=== PATIENT | male | born 2005 | race Caucasian/White ===

== ENCOUNTER 2023-07-30 18:39 | Emergency (ER) | payer OTHER, SELFPAY ==
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
[2023-07-30 18:42] VITALS: BP 149/90; PULSE 90; TEMP 37.3; O2SAT 97; BMI 20.8
[2023-07-30 18:53] VITALS: O2SAT 98
== END 2023-07-30 20:29 | disposition home or self-care (01) ==
PROVIDERS: Emergency Provider Emergency Medicine; PCP Family Medicine
DX: S39.012A Strain of muscle, fascia and tendon of lower back, initial encounter (principal); V43.52XA Car driver injured in collision with other type car in traffic accident, initial encounter
CPT/HCPCS: 72040; 72100; 99284

== ENCOUNTER 2024-04-24 15:29 | Emergency (ER) | payer OTHER, SELFPAY ==
--- OUTSIDE RECORDS SUMMARY | 2024-04-24 15:34 | XMS_ITS | CCD ---
Author Organization [facility] Care Team Providers Care Machine Feller Name Role Phone Nitish Cedeno Primary Care Provider [phone] ZAY SANTO Referring Unavailable NITISH CEDENO Primary Care Unavailable TEETEE DE JESUS Admitting Unavailable TEETEE DE JESUS Attending Unavailable NITISH CEDENO Primary Care Unavailable Nitish Cedeno Unavailable Unavailable DENEEN, DR TALBERT Primary Care Unavailable DENEEN, DR TALBERT Consulting Unavailable DENEEN, DR TALBERT Attending Unavailable DENEEN, DR TALBERT Admitting Unavailable NOEMI, DR JESSE Smith Consulting Unavailable SHEREE LEONARD Attending Unavailable DENEEN, DR TALBERT Primary Care Unavailable SHEREE LEONARD Admitting Unavailable SHEREE LEONARD Consulting Unavailable DENEEN, DR TALBERT Consulting Unavailable DENEEN, DR TALBERT Attending Unavailable DENEEN, DR TALBERT Admitting Unavailable DENEEN, DR TALBERT Primary Care Unavailable BEAR, DR VIKKI Mar Consulting Unavailable JUAN CARLOS PEÑA Attending Unavailable DENEEN, DR TALBERT Primary Care Unavailable JUAN CARLOS PEÑA Admitting Unavailable DENEEN, DR TALBERT Primary Care Unavailable PAY, DR SCHNEIDER Attending Unavailable PAY, DR SCHNEIDER Admitting Unavailable PAY, DR SCHNEIDER Consulting Unavailable GISSELLE MACK Consulting Unavailable NITISH, DR MAYER Attending Unavailable DHRUV BONDS Consulting Unavailable DENEEN, DR TALBERT Primary Care Unavailable NITISH, DR MAYER Admitting Unavailable LOKESH GODINEZ Attending Unavailable DENEEN, DR TALBERT Primary Care Unavailable LOKESH GODINEZ Admitting Unavailable LOKESH GODINEZ Consulting Unavailable ChadMan woodruffit Consulting Unavailable DENEEN, DR TALBERT Primary Care Unavailable DENEEN, DR TALBERT Consulting Unavailable DENEEN, DR TALBERT Attending Unavailable DENEEN, DR TALBERT Admitting Unavailable NOEMI, DR JESSE Smith Consulting Unavailable DENEEN, DR TALBERT Primary Care Unavailable DENEEN, DR TALBERT Attending Unavailable DENEEN, DR NITISH Admitting Unavailable Nitish Cedeno Unavailable Unavailable Unavailable Nitish Cedeno Unavailable Suzy Katarina Unavailable Mayela OrtizbartNela Unavailable Jesse Greenberg Unavailable Allergies Allergy Classification Reported Allergen(s) Allergy Type Date of Onset Reaction(s) Facility Penicillins (antibiotic) (9 sources) Penicillins; Translations: [Penicillins] Drug Allergy 6 Rash [facility] Repository (2 sources) Penicillins Propensity to adverse reactions to drug 9 [place], [place] (1 source) Penicillins; Translations: [Penicillins] Allergy to drug (finding) GP-Ypitpqotwq-Om nter Jalen Milner Work Phone: (4 sources) Penicillin G Benzathine Drug allergy Unknown [employer] Other Medications Current Medications Medication Drug Class(es) Dates Sig (Normalized) Sig (Original) acetaminophen 325 mg oral tablet (1 source) Start: 12-25-2018 take 2 tablets by mouth every six hours acetaminophen (AMINOFEN) 325 MG tablet Take 2 tablets by mouth every 6 hours 120 tablet 0 12/25/2018 Active Start: 12-25-2018 take 2 tablets by mo uth every six hours acetaminophen (AMINOFEN) 325 MG tablet Take 2 tablets by mouth every 6 hours 120 tablet 0 12/25/2018 Active Acetaminophen / HYDROcodone (1 source) Opioid Agonist Start: 12-25-2018 End: 12-25-2018 HYDROcodone-acetaminophen (NORCO) 5-325 MG per tablet 1 tablet bisacodyl 5 mg delayed release oral tablet (1 source) Stimulant Laxative Start: 09-06-2020 take 2 tablets by mouth once daily as needed Ducodyl 5 mg oral delayed release tablet ; 2 tab(s) orally once a day as needed for constiaption Quantity: 30 Refills: 0 Ordered: 06-Sep-2020 Baudilio West Start: 06-Sep-2020 Generic Substitution Allowed Comments: Swallow whole. Do not crush. Comment on above: Swallow whole. Do no t crush. calcium chloride 0.0014 meq/ml / potassium chloride 0.004 meq/ml / sodium chloride 0.103 meq/ml / sodium lactate 0.028 meq/ml injectable solution (1 source) Start: 12-25-2018 lactated ringers infusion 2 ml fentaNYL 0.05 mg/ml injection (2 sources) Opioid Agonist Start: 12-25-2018 fentaNYL (SUBLIMAZE) injection 50 mcg Start: 12-25-2018 fentaNYL (SUBL IMAZE) injection 25 mcg hyoscyamine sulfate 0.125 mg disintegrating oral tablet (12 sources) Start: 02-07-2021 Hyoscyamine Levy lfate 0.125 MG 1 tablet on the tongue and allow to dissolve as needed Orally PRN for 30 days Feb, Active Start: 11-17-2015 take 1 tablet under the tongue four times daily Hyoscyamine Sulfate 0.125 MG Sublingual Tablet Sublingual dissolve 1 tablet under the tongue four times a day if needed for CRAM Quantity: 20 Refills: 0 Ordered: 17-Nov-2015 DO Start : 17-Nov-2015 Active ibuprofen 200 mg oral tablet (1 source) Nonsteroidal Anti-inflammatory Drug Start: 12-25-2018 take 2 tablets by mouth every six hours ibuprofen (ADVIL) 200 MG tablet Take 2 tablets by mouth every 6 hours 120 tablet 0 12/25/2018 Active Start: 12-25-2018 take 2 tablets by mo [facility] every six hours ibuprofen (ADVIL) 200 MG tablet Take 2 tablets by mouth every 6 hours 120 tablet 0 12/25/2018 Active pantoprazole 40 mg delayed release oral tablet (15 sources) Proton Pump Inhibitor Start: 05-16-2021 take 1 tablet by mouth every twenty-four hours Pantoprazole Sodium 40 MG 1 tablet Orally Once a day for 30 day(s) CANCEL PREVIOUSLY SENT SCRIPT FOR PANTOPRAZOLE 20 MG DAILY May, Active Start: 11-02-2019 take 1 tablet by flavio th twice daily Pantoprazole Sodium 40 MG Oral Tablet Delayed Release Take 1 tablet twice daily Quantity: 60 Refills: 2 Ordered: 15-Aug-2020 Sheree Leonard MD Start : 02-Nov-2019 Active Start: 11-02-2019 take 1 tablet by flavio th once daily Pantoprazole Sodium 40 MG Oral Tablet Delayed Release take 1 tablet by mouth once daily Quantity: 30 Refills: 0 DO Start : 02-Nov-2019 Active take 1 tablet by flavio th every twenty-four hours Pantoprazole Sodium 20 MG 1 tablet Orally Once a day for 30 day(s) Active Pantoprazole Sod ium Active pantoprazole Naveen ntity: 0 Refills: 0 Ordered: 01-May-2020 Eusebia Silva Generic Substitution Allowed Completed/Discontinued Medications Medication Drug Class(es) Dates Sig (Normalized) Sig (Original) 200 actuat albuterol 0.09 mg/actuat metered dose inhaler (1 source) beta2-Adrenergic Agonist Start: 01-29-2016 take 2 puff(s) by mouth four times daily Ventolin HFA 108 (90 Base) MCG/ACT Inhalation Aerosol Solution INHALE 2 PUFFS BY MOUTH 4 TIMES A DAY, USE 2 PUFFS 30 MINUTES BEFORE P Quantity: 18 Refills: 0 DO Start : 29-Jan-2016 Active dicyclomine hydrochloride 20 mg oral tablet (2 sources) Anticholinergic Start: 12-29-2019 take 1 tablet by mouth three times daily for pain Dicyclomine HCl - 20 MG Oral Tablet take 1 tablet by mouth three times a day if needed for ABDOMINAL PAIN Quantity: 40 Refills: 0 DO Start : 29-Dec-2019 Active dicyclomine Eric tity: 0 Refills: 0 Ordered: 01-May-2020 Eusebia Silva Generic Substitution Allowed ergocalciferol 0.05 mg oral capsule (7 sources) Provitamin D2 Compound Start: 06-08-2020 take 1 capsule by mouth once daily Vitamin D (Ergocalciferol) 50 MCG (2000 UT) Oral Capsule TAKE 1 CAPSULE BY MOUTH EVERY DAY Quantity: 30 Refills: 3 Ordered: 29-Aug-2020 Sheree Leonard MD Start : 08-Jun-2020 Active Start: 06-08-2020 take 1 capsule by mo [facility] every week Vitamin D (Ergocalciferol) 1.25 MG (41336 UT) Oral Capsule TAKE 1 CAPSULE WEEKLY. Quantity: 4 Refills: 2 Ordered: 08-Jun-2020 Sheree Leonard MD Start : 08-Jun-2020 Active famotidine 20 mg oral tablet (1 source) Histamine-2 Receptor Antagonist Start: 02-26-2020 take 1 tablet by mouth twice daily Famotidine 20 MG Oral Tablet take 1 tablet by mouth twice a day Quantity: 20 Refills: 0 DO Start : 26-Feb-2020 Active 60 actuat formoterol fumarate 0.005 mg/actuat / mometasone furoate 0.1 mg/actuat metered dose inhaler (1 source) Corticosteroid, beta2-Adrenergic Agonist Start: 02-22-2016 take 2 puff(s) by mouth twice daily Dulera 100-5 MCG/ACT Inhalation Aerosol INHALE 2 PUFFS BY MOUTH TWICE A DAY Quantity: 13 Refills: 0 DO Start : 22-Feb-2016 Active hydrocortisone 25 mg/ml topical cream (8 sources) Corticosteroid Start: 08-10-2015 Hydrocortisone 2.5 % External Cream APPLY TO RASH ONCE DAILY IF NEEDED Quantity: 30 Refills: 0 Ordered: 10-Aug-2015 DO Start : 10-Aug-2015 Active Start: 08-10-2015 Hydrocortisone 2.5 % External Cream APPLY TO RASH ONCE DAILY IF NEEDED Quantity: 30 Refills: 0 DO Start : 10-Aug-2015 Active meclizine hydrochloride 25 mg oral tablet (1 source) Antiemetic Start: 01-01-2016 take 1 tablet by mouth four times daily for dizziness Meclizine HCl - 25 MG Oral Tablet take 1 tablet by mouth four times a day FOR DIZZINESS Quantity: 20 Refills: 0 DO Start : 01-Jan-2016 Active melatonin 5 mg oral tablet (2 sources) Start: 11-03-2015 RA Melatonin 5 MG Oral Tablet Quantity: 30 Refills: 0 DO Start : 03-Nov-2015 Active take 5 mg by mouth once daily as needed melatonin 3 MG TABS tablet Take 5 mg by mouth nightly as needed 0 Active 2 ml midazolam 1 mg/ml injection (1 source) Benzodiazepine Start: 12-25-2018 End: 12-25-2018 midazolam (VERSED) injection 2 mg Start: 12-25-2018 End: 12-25-2018 midazolam (VERSED) injection 2 mg ondansetron 4 mg disintegrating oral tablet (2 sources) Serotonin-3 Receptor Antagonist Start: 02-26-2020 take 1 tablet by mouth every four hours for nausea Ondansetron 4 MG Oral Tablet Disintegrating dissolve 1 tablet ON TONGUE every 4 hours if needed for nausea OR vomi Quantity: 10 Refills: 0 DO Start : 26-Feb-2020 Active Start: 04-25-2016 take 1 tablet by flavio th every six hours Ondansetron HCl - 4 MG Oral Tablet take 1 tablet by mouth every 6 hours if needed Quantity: 12 Refills: 0 DO Start : 25-Apr-2016 Active polyethylene glycol 3350 88602 mg powder for oral solution (1 source) Osmotic Laxative Start: 09-06-2020 GlycoLax oral powder for reconstitution ; 17 gram(s) orally once a day Quantity: 1 Refills: 3 Ordered: 06-Sep-2020 Baudilio West Start: 06-Sep-2020 Generic Substitution Allowed Comments: Dilute this medication with liquid before administration.It is very important that you take or use this exactly as directed. Do not skip doses or discontinue unless directed by your doctor. Comment on above: Dilute this medicati on with liquid before administration.It is very important that you take or use this exactly as directed. Do not skip doses or discontinue unless directed by your doctor. predniSONE 5 mg oral tablet (7 sources) Start: 07-14-2020 take 4 tablets by mouth once daily predniSONE 5 MG Oral Tablet TAKE 4 TABLETS DAILY. Quantity: 120 Refills: 0 Ordered: 14-Jul-2020 Sheree Leonard MD Start : 14-Jul-2020 Active sucralfate 1000 mg oral tablet (2 sources) Aluminum Complex Start: 03-26-2020 take 1 tablet by mouth every six hours for pain Sucralfate 1 GM Oral Tablet take 1 tablet by mouth every 6 hours if needed for ABDOMINAL PAIN Quantity: 20 Refills: 0 DO Start : 26-Mar-2020 Active Carafate Quantit y: 0 Refills: 0 Ordered: 01-May-2020 Eusebia Silva Generic Substitution Allowed Problems Active Problems Problem Classification Problem Date Documented Da te Episodic/Chronic Abdominal pain (20 sources) Epigastric pain; Translations: [Lower abdominal pain] Onset: 1 Episodic Allergic reactions (8 sources) Environmental allergy; Translations: [Other allergy, other than to medicinal agents] Episodic Anal and rectal conditions (7 sources) Proctitis; Translations: [Other specified disorders of rectum and anus] Episodic Diseases of mouth; excluding dental (8 sources) Aphthous ulcer of mouth; Translations: [Oral aphthae] Episodic Esophageal disorders (15 sources) Gastroesophageal reflux disease; Translations: [Gastro-esophageal reflux disease without esophagitis] Onset: 0 Resolved: 2 Chronic Gastritis and duodenitis (2 sources) Superficial gastritis; Translations: [Chronic superficial gastritis without bleeding] Onset: 2 Resolved: 2 Chronic Gastroduodenal ulcer (except hemorrhage) (1 source) Peptic ulcer, site unspecified, unspecified as acute or chronic, without hemorrhage or perforation; Translations: [PU SITE UNS UNS AC/CHR NO HEM/PERF] Onset: 0 Chronic Headache; including migraine (8 sources) Chronic headache disorder; Translations: [Headache] Episodic Nausea and vomiting (9 sources) Nausea; Translations: [Nausea] Onset: 0 Episodic Noninfectious gastroenteritis (13 sources) Eosinophilic gastritis or gastroenteritis; 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: 1 Resolved: 2 Chronic Nutritional deficiencies (7 sources) Vitamin D deficiency; Translations: [Unspecified vitamin D deficiency] Chronic Other acquired deformities (8 sources) Scoliosis deformity of spine; Translations: [Scoliosis [and kyphoscoliosis], idiopathic] Chronic Other aftercare (7 sources) Patient encounter status; Translations: [Long-term (current) use of non-steroidal anti-inflammatories (NSAID)] Episodic Other bone disease and musculoskeletal deformities (4 sources) Other idiopathic scoliosis, site unspecified; Translations: [OTHER IDIOPATHIC SCOLIOSIS SITE UNS] Onset: 0 Chronic Other gastrointestinal disorders (4 sources) Irritable bowel syndrome with diarrhea; Translations: [Irritable bowel syndrome with diarrhea] Chronic Other gastrointestinal disorders (2 sources) Irritable bowel syndrome with diarrhea Onset: 2 Resolved: 2 Chronic Other hereditary and degenerative nervous system conditions (4 sources) Essential tremor; Translations: [ESSENTIAL TREMOR] Onset: 1 Chronic Other nervous system disorders (1 source) Other chronic pain; Translations: [OTHER CHRONIC PAIN] Onset: 1 Chronic Residual codes; unclassified (2 sources) Foreign body; Translations: [Foreign body (FB) in soft tissue] Onset: 9 12-08-2018 Episodic Residual codes; unclassified (7 sources) History of clinical finding in subject; Translations: [Personal history of unspecified disease] Episodic Spondylosis; intervertebral disc disorders; other back problems (8 sources) Backache; Translations: [Backache, unspecified] Episodic Substance-related disorders (1 source) Cannabis abuse, uncomplicated; Translations: [CANNABIS ABUSE UNCOMPLICATED] Onset: Chronic Unclassified (2 sources) REFERRAL 09-06-2020 Comment on above: REFERRAL Unclassified (1 source) EOSINOPHILIC GASTRITIS/REFERRED BY DR. LEONARD/REQUESTING ALLERGY TESTING 08-16-2020 Comment on above: EOSINOPHILIC GASTRIT IS/REFERRED BY DR. 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; Translations: [OTH PENITENTIARY CURRENT DRUG THERAPY] Onset: 02-29-2020 Episodic Superficial injury; contusion (1 source) Foreign body of skin of chest; Translations: [Foreign body of skin of chest, initial encounter] Episodic Unclassified (1 source) History of clinical finding in subject; Translations: [History of being hospitalized] Unclassified (1 source) Patient encounter status; Translations: [NSAID long-term use] Results Test Name Value Interpretation Reference Range Facility No Panel Informationon 10-02 [email or web address] | [employer]/ [email or web address]?={[id number]} [facility] Work Phone: [facility] Work Phone: [email or web address] | [employer]/ [email or web address]?={[id number]} [facility] Work Phone: [facility] Work Phone: Order Reconciliationon 10-02 Order Reconciliation Page 1 Discharge Reconciliation Document Reconciliation Type: Discharge requested on behalf of Sheree Leonard (Physician) done by Sheree Leonard) Discharge - Reconciliation: 02-Oct-2020 12:05 by: Sheree Leonard) Home Medications EnteredHOME MEDICATIONS AT DISCHARGE DateReconciliation Comment/ Additional Information dicyclomine 01-May-2020 11:17 dicyclomine 01-May-2020 11:17 dicyclomine is continued as dicyclomine pantoprazole 01-May-2020 11:16 pantoprazole 01-May-2020 11:16 pantoprazole is continued as pantoprazole Current OrdersDateHOME MEDICATIONS AT DISCHARGE DateReconciliation Comment/ Additional Information Lactated Ringers Infusion - PEDS Volume = 1,000 mL Run at: 100 mL/hr IntraVenous Clinician Notes: PACU Order ONLY 02-Oct-2020 11:01 Lactated Ringers Infusion - PEDS is not required All Active Home Medications at time of Discharge Reconciliation: 02-Oct-2020 12:05 dicyclomine pantoprazole Normal [facility] Patient Profile - Preop - Pe diatric v2on 10-02-2020 Patient Profile - Preop - Pediatric v2 Profile: Initial Info: How to be AddressedShade(1) Parent NameCondavid Branch(1) Spoken Language PreferredEnglish (1) Parental Spoken Language PreferredEnglish (1) Legal Custodiangrandma Mendy Branch(1) Stated Reason for Admissionscopes Primary Contact Name and Numbersee chart Patient Belongingsnone Medications Brought to Hospitalno General Health: Patient or Family Member Reaction to Anesthesiano previous reaction Blood Avoidance/Restrictionsnone Previous Transfusion Reactionno Health Mgmt: Symptoms/Conditions Managed at Homegastrointestinal Gastrointestinal Symptoms/Conditionsabdomin al pain Barriers to Managing Healthnone Relationship/Environ: Primary Caregivergrandmother(1) Lives Withfather; grandmother(1) Resource/Environmental Concernsnone [facility] Anticipated at Transitionnone Substance: Smoking Statusnever smoker Alcohol Usedenies Drug Usedenies Drug 2 Usedenies Risk Screens: COVID-19 Screening Completedno exposure or symptoms Travel or ExposureNO travel to International locations in the past 30 days Advance Directive/DNRnot applicable Advance Directive Mental Healthnot applicable Patient is Able to be Assessed for Learningyes Factors Influence Readiness to Learnnone, ready to learn Factors Impact Ability to Learnnone Devices/Methods Used to Communicatenone Learning Preferencesskill demonstration, verbal instruction Cultural Considerationsnone Developmental Considerationsnone Baptist Considerationsnone Other learner availableno Do you feel UNSAFE going back to the place where you liveno Clinician Assessment: Are there any apparent signs of injuries/behaviors that could be related to abuse/neglectno Ask parent or guardian: Are there times when you, your child(chang), or any member of your household feel unsafe, harmed, or threatened around persons with whom you know or liveno Have you had any thoughts of harming anyone elseno Risk Screen Not Applicable/Able to Answerable to be screened In the Past Month: Have you wished you were or could go to sleep and not wake upno In the Past Month: Have you had any actual thoughts of killing yourselfno Lifetime: Have you ever done, started to do, or prepared to do anything to end your lifeno [place] RiskPatient location auto qualifies him/her for HIGH RISK. Are there any cultural, spiritual, religion practices/values/needs that are important for us to knowno Pain Scalenumerical 0-10 Pain Scale Educationteaching provided Current Pain Level0 = None Acceptable Pain Level0 = None Chronic Painno Additional Information: Information Review: Allergies, Home Meds and Significant Events have been Reviewed and Verified with Patient/Familyyes Allergy, Intolerance, Adverse Event: Allergies: penicillin: Drug, Rash, Active Electronic Signatures: Roxanne Lee (ANA M) (Signed 02-Oct-2020 10:39) Authored: Initial Info, General Health, Health Mgmt, Relationship/Environ, Substance, Risk Screens, Additional Information Last Updated: 02-Oct-2020 10:39 by Roxanne Lee (ANA M) References: 1. Data Referenced From Patient Profile - Preop - Pediatric v2 01-May-2020 11:20 Normal [facility] Preop Checkliston 10-02-2020 Preop Checklist Preop Checklist: Preop Checklist: Arrival [id number] Arrival Time10:36 Procedure Typeegd/colonoscopy NPO [id number] 08:00 ID Band Onyes Allergy Bandyes Consent Signedpending H&P Completepending Anesthesia Assessment Completedpending EKG Performednot ordered Chest X-Ray Performednot ordered HCG Urine TestN/A Hair Washedyes Soap and water bath with hair shampoo the night before surgeryyes Hat placed on prior to transportnot applicable SCD's Appliednot applicable Denturesnot applicable Prostheticsnot applicable Hearing Aidsnot applicable Valuables Securedsent with family Glasses / Contactsnot applicable Bowel Prepyes TypeMiralax Bowel Prep Completed as Instructedyes Stools Clearyes Cardiovascular Assessment: Apicalregular Radial Pulsespalpable Pedal Pulsespalpable Extremitieswarm, well perfused Respiratory Assessment: Respirationsregular unlabored Air Exchangegood, equal Breath Soundsclear Neurological Assessment: Level of Consciousnessalert, oriented Mobilitymoves all extremities Able to Express Selfyes Age Appropriateyes Emotional Statuscalm Skin Assessment: Skin Site(s) with Current Compromisenone Preop Education: Surgical Site Infection Preventionyes Pain Scales and Managementyes Language / Communication: Language / CommunicationEnglish Electronic Signatures: Roxanne Lee (RN) (Signed 02-Oct-2020 10:37) Authored: Preop Checklist Last Updated: 02-Oct-2020 10:37 by Roxanne Lee (RN) Normal [facility] Surgical Pathology Depar tmenton 10-02-2020 [facility] Surgical Pathology Department Name ALEXANDR BRANCH Pathologist: WESTLEY WALTON MD Date of Procedure: 10/02/2020 Date Received: 10/03/2020 Date Reported 10/04/2020 Submitting Physician: SHEREE LEONARD M.D. Location: Copy To/Referring/Attending: SHEREE LEONARD M.D. Other External # FINAL DIAGNOSIS A. DUODENUM: --DUODENAL MUCOSA; NO PATHOLOGIC DIAGNOSIS B. STOMACH: --GASTRIC ANTRAL AND FUNDIC MUCOSA; NO PATHOLOGIC DIAGNOSIS C. DISTAL ESOPHAGUS: --SQUAMOUS ESOPHAGEAL MUCOSA; NO PATHOLOGIC DIAGNOSIS D. TERMINAL ILEUM: --ILEAL MUCOSA; NO PATHOLOGIC DIAGNOSIS E. RIGHT COLON, F. TRANSVERSE COLON, G. LEFT COLON, H. RECTUM: --COLONIC MUCOSA WITH NUMEROUS LYMPHOID AGGREGATES I. MID ESOPHAGUS: --SQUAMOUS ESOPHAGEAL MUCOSA, NO PATHOLOGIC DIAGNOSIS Electronically Signed Out By WESTLEY WALTON MD/SHADY By the signature on this report, the individual or group listed as making the Final Interpretation/Diagnosis certifies that they have reviewed this case. Clinical History: abdominal pain, canker sores, reflux, weight loss, history of EoG, slighty nodular esophagus stomach, nl duo TI, red spots in colon. Specimens Submitted As: A: D-DUODENUM B: G-GASTRIC C: DE-DISTAL ESOPHAGUS D: TI-TERMINAL ILEUM E: RC-RIGHT COLON F: TC-TRANSVERSE COLON G: LC-LEFT COLON H: R-RECTUM I: ME-MID ESOPHAGUS Gross Description: A: Received in formalin, labeled with the patient's name and hospital number and D , are multiple fragments of chaney, soft tissue aggregating to 1.1 x 0.3 x 0.2 cm. The specimen is submitted in toto in one cassette. SBS B: Received in formalin, labeled with the patient's name and hospital number and G , are multiple fragments of chaney, soft tissue aggregating to 1.1 x 0.2 x 0.2 cm. The specimen is submitted in toto in one cassette. SBS C: Received in formalin, labeled with the patient's name and hospital number and DE , are multiple fragments of chaney, soft tissue aggregating to 0.6 x 0.2 x 0.2 cm. The specimen is submitted in toto in one cassette. SBS D: Received in formalin, labeled with the patient's name and hospital number and TI , are multiple fragments of chaney, soft tissue aggregating to 0.7 x 0.2 x 0.2 cm. The specimen is submitted in toto in one cassette. SBS E: Received in formalin, labeled with the patient's name and hospital number and RC , are multiple fragments of chaney, soft tissue aggregating to 0.8 x 0.2 x 0.2 cm. The specimen is submitted in toto in one cassette. SBS F: Received in formalin, labeled with the patient's name and hospital number and TC , are multiple fragments of chaney, soft tissue aggregating to 1.0 x 0.2 x 0.1 cm. The specimen is submitted in toto in one cassette. SBS G: Received in formalin, labeled with the patient's name and hospital number and LC , are multiple fragments of chaney, soft tissue aggregating to 0.8 x 0.2 x 0.2 cm. The specimen is submitted in toto in one cassette. SBS H: Received in formalin, labeled with the patient's name and hospital number and R , are multiple fragments of chaney, soft tissue aggregating to 1.0 x 0.2 x 0.2 cm. The specimen is submitted in toto in one cassette. SBS I: Received in formalin, labeled with the patient's name and hospital number and ME , are multiple fragments of chaney, soft tissue aggregating to 0.9 x 0.3 x 0.1 cm. The specimen is submitted in toto in one cassette. SBS sbs/10/03/2020 [facility] Department of Pathology [id number] [facility] [place] [address] Normal [facility] Comment on above: Performed By: #### U [facility] ####[facility] Surgical Pathology [id number] [facility] [place] [address] Office Visit (Allergy/Immuno logy)on 09-28-2020 Follow-up visit History of Present I llness PATIENT WAS A NO SHOW FOR VISIT; NOTE PREPARED IN PREPARATION OF ANTICIPATED VISIT ALEXANDR BRANCH is a 14 year-old boy who was referred to the [facility] of [facility] by Dr. 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 and patchy colitis protitis no eosinophils in esophagus has been treated with pantoprazole and oral steroid 20mg per day x 30 days script, (not clear what planned daily dose was) with a planned course with improved symptoms, less pain has eliminated dairy --not strictly with improvement in symptoms seen in ER for planned referral for worsening abodminal pain September 06 did not admit KUB with stool ball associated with worst site of pain ESR/CRP normal given fleets enema and home on miralax/dulcolax clean out ROS: positive canker sores positive weight loss: eats less when he has pain listed Penicilin allergy: milk: egg: Atopic Comorbidities: eczema: rhinitis: asthma: food allergy: drug allergy: hives: snoring: Active Problems Problems Abdominal pain, chronic, epigastric (789.06,338.29) (R10.13,G89.29) Abdominal pain, RLQ (789.03) (R10.31) Back pain (724.5) (M54.9) 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) Chronic headache (784.0) (R51.9,G89.29) Environmental allergies (V15.09) (Z91.09) 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) Gastro-esophageal reflux (530.81) (K21.9) Lower abdominal pain (789.09) (R10.30) Nausea in adult (787.02) (R11.0) NSAID long-term use (V58.64) (Z79.1) Proctitis (569.49) (K62.89) Scoliosis (737.30) (M41.9) Vitamin D deficiency (268.9) (E55.9) Past Medical History Problems History of being hospitalized (V13.9) (Z92.89) Surgical History Problems History of Elective Circumcision History of Neck surgery Family History Father Family history of atrial fibrillation (V17.49) (Z82.49) Family history of gastroesophageal reflux disease (V18.59) (Z83.79) Family history of Penicillin allergy Sister Family history of migraine headaches (V17.2) (Z82.0) Paternal Grandmother Family history of Diverticulitis Family history of colonic diverticulitis (V18.59) (Z83.79) Family history of gastric ulcer (V18.59) (Z83.79) Family history of kidney stones (V18.69) (Z84.1) Family history of migraine headaches (V17.2) (Z82.0) Family history of rheumatoid arthritis (V17.7) (Z82.61) Paternal Great Grandfather Family history of kidney stones (V18.69) (Z84.1) Family history of Hiatal hernia Maternal Aunt Family history of Infection of stomach Paternal Aunt Family history of asthma (V17.5) (Z82.5) Social History Problems Lives with father (single parent) Lives with grandparent(s) Parents Pets/Animals: Cat School absenteeism Secondhand smoke exposure (V15.89) (Z77.22) Allergies Medication Penicillins Recorded By: Sheree Leonard; 07/26/2016 12:55:48 PM Current Meds Medication NameInstruction Hydrocortisone 2.5 % External CreamAPPLY TO RASH ONCE DAILY IF NEEDED Hyoscyamine Sulfate 0.125 MG Sublingual Tablet Sublingualdissolve 1 tablet under the tongue four times a day if needed for CRAM Pantoprazole Sodium 40 MG Oral Tablet Delayed ReleaseTake 1 tablet twice daily predniSONE 5 MG Oral TabletTAKE 4 TABLETS DAILY. Vitamin D (Ergocalciferol) 50 MCG (1999) Oral CapsuleTAKE 1 CAPSULE BY MOUTH EVERY DAY 'Scores and Scales' Signatures Electronically signed by : Nela Cook DO; Sep 28 2020 1:10PM EST (Author) Normal Touchworks C Reactive Protein, Serumon 09-06-2020 CRP [Mass/Vol] mg/L [facility] [facility] Work Phone: Comment on above: REF VALUE< 1.00 C-REACTIVE PROTEINon 021 CRP [Mass/Vol] mg/L Normal [facility] Comment on above: Result Comment: REF VALUE < 1.00 Performed By: #### C RP #### [facility] [id number] [place] [address] CBC AND DIFFERENTIALon 09-06 % AUTOMATED IMMATURE GRAN 0.2 % Normal 0.0 - 1.0 [facility] Comment on above: Result Comment: Arti ture Granulocyte Count (IG) includes promyelocytes, myelocytes and metamyelocytes but does not include bands. Percent differential counts (%) should be interpreted in the context of the absolute cell counts (cells/L). Performed By: #### C BCDF ####[id number] [place] [address] Basophils (Bld) [#/Vol] 0.02 10*3/uL Normal 0.00 - 0.10 [facility] Comment on above: Performed By: #### C BCDF ####[id number] [place] [address] Basophils/100 WBC (Bld) 0.4 % Normal 0.0 - 1.0 [facility] Comment on above: Performed By: #### C BCDF ####[id number] [place] [address] Eosinophils (Bld) [#/Vol] 0.04 10*3/uL Normal 0.00 - 0.70 [facility] Comment on above: Performed By: #### C BCDF ####[id number] [place] [address] Eosinophils/100 WBC (Bld) 0.8 % Normal 0.0 - 5.0 [facility] Comment on above: Performed By: #### C BCDF ####[id number] [place] [address] Erythrocyte distribution width (RBC) [Ratio] 12.1 % Normal 11.5 - 14.5 [facility] Comment on above: Performed By: #### C BCDF ####[id number] [place] [address] Hematocrit (Bld) [Volume fraction] 37.6 % Normal 37.0 - 49.0 [facility] Comment on above: Performed By: #### C BCDF ####[id number] [place] [address] Hemoglobin (Bld) [Mass/Vol] 13.6 g/dL Normal 13.0 - 16.0 [facility] Comment on above: Performed By: #### C BCDF ####[id number] [place] [address] Lymphocytes (Bld) [#/Vol] 1.25 10*3/uL Low 1.80 - 4.80 [facility] Comment on above: Performed By: #### C BCDF ####[id number] [place] [address] Lymphocytes/100 WBC (Bld) 25.4 % Normal 28.0 - 48.0 [facility] Comment on above: Performed By: #### C BCDF ####[id number] [place] [address] MCHC (RBC) [Mass/Vol] 36.2 g/dL Normal 31.0 - 37.0 [facility] Comment on above: Performed By: #### C BCDF ####[id number] [place] [address] MCV (RBC) [Entitic vol] 79 fL Normal 78 - 102 [facility] Comment on above: Performed By: #### C BCDF ####[id number] [place] [address] Monocytes (Bld) [#/Vol] 0.30 10*3/uL Normal 0.10 - 1.00 [facility] Comment on above: Performed By: #### C BCDF ####[id number] [place] [address] Monocytes/100 WBC (Bld) 6.1 % Normal 3.0 - 9.0 [facility] Comment on above: Performed By: #### C BCDF ####[id number] [place] [address] Neutrophils (Bld) [#/Vol] 3.31 10*3/uL Normal 1.20 - 7.70 [facility] Comment on above: Performed By: #### C BCDF ####[id number] [place] [address] Neutrophils/100 WBC (Bld) 67.1 % Normal 33.0 - 69.0 [facility] Comment on above: Performed By: #### C BCDF ####[id number] [place] [address] NUCLEATED RBC 0.0 /100 WBC Normal 0.0-0.0 [facility] Comment on above: Performed By: #### C BCDF ####[id number] [place] [address] Platelets (Bld) [#/Vol] 156 10*3/uL Normal 150 - 400 [facility] Comment on above: Performed By: #### C BCDF ####[id number] [place] [address] RBC 4.76 x10E12/L Normal 4.50 - 5.30 [facility] Comment on above: Performed By: #### C BCDF ####[id number] [place] [address] WBC (Bld) [#/Vol] 4.9 10*3/uL Normal 4.5 - 13.5 [facility] Comment on above: Performed By: #### C BCDF ####[id number] [place] [address] COMPREHENSIVE PANELon 09-06- 2020 Albumin [Mass/Vol] 4.6 g/dL Normal 3.4 - 5.0 [facility] Comment on above: Performed By: #### C MP #### [facility] [address] [place] [address] ALP [Catalytic activity/Vol] 120 U/L Normal 75 - 312 [facility] Comment on above: Performed By: #### C MP #### [facility] [address] [place] [address] ALT [Catalytic activity/Vol] 8 U/L Normal 3 - 28 [facility] Comment on above: Result Comment: Noreen ents treated with Sulfasalazine may generate falsely decreased results for ALT. Performed By: #### C MP #### [facility] [address] [place] [address] Anion gap [Moles/Vol] 13 mmol/L Normal 10 - 30 [facility] Comment on above: Performed By: #### C MP #### [facility] [address] [place] [address] AST [Catalytic activity/Vol] 13 U/L Normal 9 - 32 [facility] Comment on above: Performed By: #### C MP #### [facility] [address] [place] [address] Bilirubin [Mass/Vol] 0.5 mg/dL Normal 0.0 - 0.9 [facility] Comment on above: Performed By: #### C MP #### [facility] [address] [place] [address] Calcium [Mass/Vol] 9.8 mg/dL Normal 8.5 - 10.7 [facility] Comment on above: Performed By: #### C MP #### [facility] [address] [place] [address] Chloride [Moles/Vol] 107 mmol/L Normal 98 - 107 [facility] Comment on above: Performed By: #### C MP #### [facility] [address] [place] [address] Creatinine [Mass/Vol] 0.95 mg/dL Normal 0.60 - 1.10 [facility] Comment on above: Performed By: #### C MP #### [facility] [address] [place] [address] Glucose [Mass/Vol] 91 mg/dL Normal 74 - 99 [facility] Comment on above: Performed By: #### C MP #### [facility] [address] [place] [address] HCO3 (Bld) [Moles/Vol] 25 mmol/L Normal 18 - 27 [facility] Comment on above: Performed By: #### C MP #### [facility] [address] [place] [address] Potassium [Moles/Vol] 4.0 mmol/L Normal 3.5 - 5.3 [facility] Comment on above: Performed By: #### C MP #### [facility] [address] [place] [address] Protein [Mass/Vol] 6.4 g/dL Normal 6.2 - 7.7 [facility] Comment on above: Performed By: #### C MP #### [facility] [address] [place] [address] Sodium [Moles/Vol] 141 mmol/L Normal 136 - 145 [facility] Comment on above: Performed By: #### C MP #### [facility] [address] [place] [address] Urea nitrogen [Mass/Vol] 10 mg/dL Normal 6 - 23 [facility] Comment on above: Performed By: #### C MP #### [facility] [address] [place] [address] Complete Blood Count + Diffe kike 09-06-2020 Basophils/100 WBC (Bld) 0.4 % 0.0 - 1.0 [facility] [facility] Work Phone: Erythrocyte distribution width (RBC) [Ratio] 12.1 % See Below -[facility] [facility] Work Phone: Comment on above: Reference Range: 11. 5 - 14.5 Hematocrit (Bld) [Volume fraction] 37.6 % See Below [facility] [facility] Work Phone: Comment on above: Reference Range: 37. 0 - 49.0 Hemoglobin (Bld) [Mass/Vol] 13.6 g/dL See Below [facility] [facility] Work Phone: Comment on above: Reference Range: 13. 0 - 16.0 Lymphocytes/100 WBC (Bld) 25.4 % See Below [facility] [facility] Work Phone: Comment on above: Reference Range: 28. 0 - 48.0 MCHC (RBC) [Mass/Vol] 36.2 g/dL See Below [facility] [facility] Work Phone: Comment on above: Reference Range: 31. 0 - 37.0 MCV (RBC) [Entitic vol] 79 fL 78 - 102 [facility] [facility] Work Phone: Monocytes/100 WBC (Bld) 6.1 % 3.0 - 9.0 [facility] Work [facility]: Neutrophils/100 WBC (Bld) 67.1 % See Below [facility] Work Phone: Comment on above: Reference Range: 33. 0 - 69.0 Platelets (Bld) [#/Vol] 156 10*3/uL 150 - 400 [facility] [facility] Work Phone: RBC (Bld) [#/Vol] 4.76 {x10E12/L} See Below [facility] [facility] Work Phone: Comment on above: Reference Range: 4.5 0 - 5.30 WBC (Bld) [#/Vol] 4.9 10*3/uL 4.5 - 13.5 [facility] [facility] Work Phone: Complete Blood Count + Differential 0.8 % 0.0 - 5.0 [facility] Work Phone: Complete Blood Count + Differential 0.2 % 0.0 - 1.0 [facility] [facility] Work Phone: Comment on above: Immature Granulocyte Count (IG) includes promyelocytes, myelocytes and metamyelocytes but does not include bands. Percent differential counts (%) should be interpreted in the context of the absolute cell counts (cells/L). Complete Blood Count + Differential 0.0 {/100_WBC} 0.0-0.0 [facility] Work Phone: Complete Blood Count + Differential 0.02 {x10E9/L} See Below [facility] [facility] Work Phone: Comment on above: Reference Range: 0.0 0 - 0.10 Complete Blood Count + Differential 0.04 {x10E9/L} See Below [facility] [facility] Work Phone: Comment on above: Reference Range: 0.0 0 - 0.70 Complete Blood Count + Differential 0.30 {x10E9/L} See Below [facility] [facility] Work Phone: Comment on above: Reference Range: 0.1 0 - 1.00 Complete Blood Count + Differential 1.25 {x10E9/L} below low threshold See Below [facility] [facility] Work Phone: Comment on above: Reference Range: 1.8 0 - 4.80 Complete Blood Count + Differential 3.31 {x10E9/L} See Below [facility] [facility] Work Phone: Comment on above: Reference Range: 1.2 0 - 7.70 LIPASEon 09-06-2020 Lipase [Catalytic activity/Vol] 6 U/L Low 9 - 82 [facility] Comment on above: Result Comment: Madhuri puncture immediately after or during the administration of Metamizole may lead to falsely low results. Testing should be performed immediately prior to Metamizole dosing. Z-svokle-h-benzoquinone imine (metabolite of Acetaminophen) will generate erroneously low results in samples for patients that have taken toxic doses of acetaminophen. Performed By: #### L IPAS #### [facility] [address] [place] [address] Laboratory - Chemistry and C hemistry - challengeon 09-06-2020 Albumin BCP dye [Mass/Vol] 4.6 g/dL 3.4 - 5.0 [facility] [facility] Work Phone: ALP [Catalytic activity/Vol] 120 U/L 75 - 312 [facility] Work Phone: ALT With P-5'-P [Catalytic activity/Vol] 8 U/L 3 - 28 [facility] Work Phone: Comment on above: Patients treated wit h Sulfasalazine may generate falsely decreased results for ALT. Anion gap [Moles/Vol] 13 mmol/L 10 - 30 [facility] Work Phone: AST With P-5'-P [Catalytic activity/Vol] 13 U/L 9 - 32 [facility] [facility] Work Phone: Bilirubin [Mass/Vol] 0.5 mg/dL 0.0 - 0.9 [facility] [facility] Work Phone: Calcium [Mass/Vol] 9.8 mg/dL 8.5 - 10.7 [facility] [facility] Work Phone: Chloride [Moles/Vol] 107 mmol/L 98 - 107 [facility] [facility] Work Phone: CO2 [Moles/Vol] 25 mmol/L 18 - 27 [facility] [facility] Work Phone: Creatinine [Mass/Vol] 0.95 mg/dL See Below [facility] [facility] Work Phone: Comment on above: Reference Range: 0.6 0 - 1.10 Glucose [Mass/Vol] 91 mg/dL 74 - 99 [facility] [facility] Work Phone: Potassium [Moles/Vol] 4.0 mmol/L 3.5 - 5.3 [facility] [facility] Work Phone: Protein [Mass/Vol] 6.4 g/dL 6.2 - 7.7 [facility] [facility] Work Phone: Sodium [Moles/Vol] 141 mmol/L 136 - 145 [facility] Work Phone: Urea nitrogen [Mass/Vol] 10 mg/dL 6 - 23 [facility] [facility] Work Phone: Lipase, Serumon 09-06-2020 Lipase [Catalytic activity/Vol] 6 U/L below low threshold 9 - 82 [facility] [facility] Work Phone: Comment on above: Venipuncture immedia tely after or during the administration of Metamizole may lead to falsely low results. Testing should be performed immediately prior to Metamizole dosing. K-yrozev-c-benzoquinone imine (metabolite of Acetaminophen) will generate erroneously low results in samples for patients that have taken toxic doses of acetaminophen. PD ABDOMEN, SINGLE VIEWon PD ABDOMEN, SINGLE VIEW Patient Name: ALEXANDR BRANCH STUDY: ABDOMEN, SINGLE VIEW INDICATION: abdominal pain chronic with constipation COMPARISON: None. ACCESSION NUMBER(S): [id number] ORDERING CLINICIAN: BAUDILIO WEST TECHNIQUE: AP supine view of the abdomen was performed on 09/06/2020t 6:42 p.m. FINDINGS: Well distended to mildly dilated loops of small bowel loops in the central abdomen. Some gas is identified in the expected location of the colon. A small to moderate amount of stool is present. Lung bases appear clear. Osseous structures are within normal limits. I personally reviewed the images/study and I agree with the findings as stated. This study was interpreted at [facility], [place], [place]. IMPRESSION: Well distended to mildly dilated loops of small bowel in the central abdomen. Slight prominence of the jejunal folds. This is a nonspecific finding but could be seen in the setting of gastroenteritis or inflammation of other etiology. Electronically signed by: JAMISON JUDGE MD, [facility] Normal [facility] Provider Note - ED Ped[facility] Provider Note - ED Peds Time Seen: Time [id number] 16:36 History of Presenting Illness and Social History: Patient Complaint: This 14 year old Male presents with complaint(s) of abdominal pain severe abd pain at 0400. 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 patient endorses diffuse abdominal pain starting feb. Pain is presnt in b/l sides of abd, and burning in epigastric region, worse 45 minutes after eating. Improves with BM. Had previously been having BM ~7x a day now down to 3x daily most recently mixedhard stools with watery diarrhea. patient had been followed by GI since symptoms started had a EGD and Colonscopy in 04/2020 was dx withEoEo and colitis at that time and started on steroids and PPI. Patient had some improvement pain on the steroids but still present. Denies radha blood in stool. Has bene having mucus mixed in stools for last 2 weeks, present with most BM. Endorses 10lb weight loss since symptoms start. Denies fever, persistent vomitting. No night sweats. No family history of IBD, autoimmune conditions. Past Medical History: EoE, Coloitis (dx on EGD and Colonoscopy 04/2020) Past Surgical History: foreign body removal from neck Medications: bental, PPI Allergies: NKDA Immunizations: UTD Family History: denies family history pertinent to presenting problem ROS: All systems were reviewed and negative except as mentioned above in HPI Social history: Lives with: dad and grandmother Physical Exam: Gen: Alert, NAD HEENT: EOMI, PERRLA, sclera without injection or icterus, no rhinorrhea, moist mucous membranes. Ears: Tm clear with good bubba landmark, no effusion or fluid seen. Heart: RRR, normal S1 and S2, no rubs, murmurs, or gallops. Lungs: CTAB, no increased work of breathing Abdomen: +BS, soft, tedner to deep palpation of LLQ, no gaurding, no rebound Musculoskeletal: No swelling or erythema of joints Extremities: warm and well perfused, cap refill <2sec Neurologic: Alert, symmetrical facies, moves all extremities equally, responsive to touch Skin: no rashes noted Psychological: appropriate mood/affect Laboratory and radiology results for this visit are documented below and have been reviewed. Emergency Department course / medical decision-making: VS stable PE: benign abdomen, without guarding or rebound. tednere to deep palpation o left lower quadrant Labs: CMP: unremarkable CRP/ESr: WNL KUB: nonobstructive gas patttern with hard stool ball visualize din left colon Consultations: none Assessment/Plan: 14 y/o M with EoE, canker sores and chronic abdominal pain presenting with acute worsening of stoamch pain recently. Referred to Ed by Gi Dr for additional work and possible admission Labs obtained without elevated inflammatory markers, KUB showing solid stool balls in area of worst tendernesis on PE. Cases discussed with GI team who have low concern of undiagnosed int he setting of negative EGD/Colonscopy and low inflammatory markers. patients acute pain most likely related to visualized constipation patient given fleet enema in ED and sent home with Miralax, dulcolax clean out. Patient well hydrated and hemodyanmically stable in ED and suitable for discharge home. Follow up: PCP GI Disposition: Home Pt seen and discussed with Dr. Merlin West MD Pediatrics PGY2 Referral MD: Referral MD Contacted: Referral Yes (1) Referring MDPeds GI Referring MD Contactedyes Allergies and Home Medications: Allergy, Intolerance, Adverse Event: Allergies: penicillin: Drug, Rash, Active Outpatient Medication, Review/Add Medications: * Patient Currently Takes Medications as of 01-May-2020 12:29 documented in Structured Notes HISTORY ATTESTATION: AttestationI have reviewed and confirmed nurse's/medic's notes for patient's medications, allergies, medical history, and surgical history MEDICATION: * Outpatient Medication Status not yet specified Diagnoses/Visit Problems: Constipation: Fax Recipients: Nitish Cedeno(Primary): Attestation: Co-Sign/Attestation: Attestation: I saw and evaluated the patient. I personally obtained the huff and critical portions of the history and physical exam or was physically present for huff and critical portions performed by the resident/fellow. I reviewed the resident/fellows documentation and discussed the patient with the resident/fellow. I agree with the resident/fellows medical decision making as documented in the residents note Electronic Signatures: Katarina Almonte) (Signed 08-Sep-2020 21:10) Authored: Attestation Co-Signer: History of Presenting Illness and Social History, ED Diagnosis (REQUIRED), Attestation Baudilio West (Resident)) (Signed 06-Sep-2020 22:57) Authored: Time Seen (more content not included)... Normal [facility] Radiologyon 09-06-2020 XR Abdomen AP Normal [facility] [facility] Work Phone: SEDIMENTATION RATE, ERYTHROC YTEon 09-06-2020 SEDIMENTATION RATE, ERYTHROCYTE <1 Normal 0 - 13 [facility] Comment on above: Performed By: #### E SRWS #### [facility] [address] [place] [address] Sedimentation Rate, Erythroc yteon 09-06-2020 ESR (Bld) [Velocity] mm/h 0 - 13 [facility] [facility] Work Phone: Triage - ED Ped[facility] Triage - ED Peds Triage: Chart Review: CHIEF COMPLAINT ALEXANDR BRANCH is a 14 year old Male patient with a chief complaint of abdominal pain. Other Complaints: severe abd pain at 0400 Triage Date/Time: 06-Sep-2020 16:09 Vital Signs: Temperature: 98.2F ( 36.7C) Temperature Location: oral Blood Pressure: 127/75 Mean: Heart Rate: 77 Respiratory Rate: 18 Pulse Oximetry: 98% on room air, no respiratory support Capillary Refill: < 2 seconds Weight: 59.500 kilogram(s) Weight Method Used: actual (measured) Height: 175.000 centimeter(s) Height Method: height measured Pain Scale: VAS (8 yrs & older) VAS Pain Ratin Cough Lasting Greater than 2 Weeks: no Allergies: yes Patient has Homicidal Thoughts: no Medications Given at Home: regular meds this morning and phenergan @ 1200 Acuity Level: 3 Referral: Yes Peds Complaint Code ([facility] [place] [facility] 6 Mode of Arrival: private vehicle ABCD PRIMARY ASSESSMENT ALEXANDR BRANCH's primary assessment is Within Defined Limits. The airway is open and patent. Breathing spontaneous and unlabored with clear breath sounds bilaterally. Circulation is normal with good peripheral pulses. Skin is warm and dry and color is normal for race. Alert and appropriate for age. Symptoms Are POSITIVE For: diarrhea. Symptoms Are Negative For: anorexia, constipation, diaphoresis, distention, fever, nausea, rectal blood and vomiting. RISK SCREEN [place] Suicide Risk Screen Risk Screen Not Applicable/Able to Answer: able to be screened In the Past Month: Have you wished you were or could go to sleep and not wake up no Have you had any actual thoughts of killing yourself no Lifetime: Have you ever done, started to or prepared to do anything to end your life no TRAVEL HISTORY Travel History Coronavirus Screening: positive for symptoms Travel Exposure History: NO travel to International locations in the past 30 days Past Medical History: Past Medical History Reviewedyes Significant Events: EOE: Past Medical History, Active Electronic Signatures: Arie Merlos) (Signed 06-Sep-2020 16:13) Authored: Quick Triage, Risk Screens, Travel History, Chart Review, Scores, Past Medical History Last Updated: 06-Sep-2020 16:13 by Arie Merlos) Normal [facility] UA MICROSCOPICon 09-06-2020 Mucus Ql (Urine sed) 1+ /LPF Normal [facility] Comment on above: Performed By: #### U AMIC #### [facility] [id number] [place] [address] RBC None Normal 0-5 [facility] Comment on above: Performed By: #### U AMIC #### [place] [id number] [place] [address] WBC (U) [#/Vol] /uL Normal 0-5 [facility] Comment on above: Performed By: #### U AMIC #### [facility] [id number] [place] [address] URINALYSISon 09-06-2020 Appearance (U) CLEAR Normal CLEAR [facility] Comment on above: Performed By: #### U A ####[id number] [place] [address] Bilirubin Ql (U) Negative Normal NEGATIVE [facility] Comment on above: Performed By: #### U A ####[id number] [place] [address] Color (U) STRAW Normal STRAW,YELLO W [facility] Comment on above: Performed By: #### U A ####[id number] [place] [address] Glucose Ql (U) Negative Normal NEGATIVE [facility] Comment on above: Performed By: #### U A ####[id number] [place] [address] Hemoglobin Ql (U) SMALL (1+) Abnormal NEGATIVE [facility] Comment on above: Performed By: #### U A ####[id number] [place] [address] Ketones Ql (U) Negative Normal NEGATIVE [facility] Comment on above: Performed By: #### U A ####[id number] [place] [address] Leukocyte esterase Test strip Ql (U) Negative Normal NEGATIVE [facility] Comment on above: Performed By: #### U A ####[id number] [place] [address] Nitrite Ql (U) Negative Normal NEGATIVE [facility] Comment on above: Performed By: #### U A ####[id number] [place] [address] pH (U) 7.0 [pH] Normal 5.0 - 8.0 [facility] Comment on above: Performed By: #### U A ####[id number] [place] [address] Protein Ql (U) Negative Normal NEGATIVE [facility] Comment on above: Performed By: #### U A ####[id number] [place] [address] Specific gravity (U) [Rel density] 1.008 Normal 1.005 - 1.035 [facility] Comment on above: Performed By: #### U A ####[id number] [place] [address] Urobilinogen (U) [Mass/Vol] mg/dL Normal 0.0 - 1.9 [facility] Comment on above: Performed By: #### U A ####[id number] [place] [address] Urinalysison 09-06-2020 Color (U) STRAW See Below [facility] Work Phone: Comment on above: Reference Range: STR AW,YELLOW Glucose Ql (U) Negative NEGATIVE [facility] Work Phone: Ketones Ql (U) Negative NEGATIVE [facility] Work Phone: Leukocyte esterase Test strip Ql (U) Negative NEGATIVE [facility] Work Phone: pH (U) 7.0 [pH] 5.0 - 8.0 [facility] Work Phone: Protein (U) [Mass/Vol] Negative NEGATIVE [facility] Work Phone: RBC (U) [#/Vol] SMALL (1+) Abnormal NEGATIVE [facility] Work Phone: Specific gravity (U) [Rel density] 1.008 1 See Below [facility] Work Phone: Comment on above: Reference Range: 1.0 05 - 1.035 Urinalysis Negative NEGATIVE [facility] Work Phone: Urinalysis <2.0 0.0 - 1.9 [facility] Work Phone: Urinalysis CLEAR CLEAR [facility] Work Phone: Urinalysis, Microscopicon Urinalysis, Microscopic 1+ [facility] Work Phone: Urinalysis, Microscopic None 0-5 [facility] Work Phone: Urinalysis, Microscopic <1 0-5 [facility] Work Phone: Peds Gastroenterology - Esta blishedon 08-15-2020 Peds Gastroenterology - Established Diagnoses/Problems Assessed 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 Status: Hold For - Scheduling Requested for: 15Aug2020 Ordered;For: Abdominal pain, chronic, epigastric, Canker sores oral, Eosinophilic gastritis, Gastro-esophageal reflux, Lower abdominal pain, Proctitis; Ordered By: Sheree Leonard Performed: Due: [id number] Colonoscopy Diagnostic; Status:Hold For - Scheduling; Requested for:15Aug2020; Perform:[facility]; Due:[id number];Ordered; For:Abdominal pain, chronic, epigastric, Canker sores oral, Eosinophilic gastritis, Gastro-esophageal reflux, Lower abdominal pain, Proctitis; Ordered By:Sheree Leonard; Patient competent to provide consent? : Yes-pt mentally competent to provide consent Sedation Type : Moderate (Routine) Endoscopy - Upper GI; Status:Active; Requested for:15Aug2020; Perform:[facility]; Due:[id number]; Last Updated By:Sierra Barros; 08/15/2020 3:01:16 PM;Ordered; For:Abdominal pain, chronic, epigastric, Canker sores oral, Eosinophilic gastritis, Gastro-esophageal reflux, Lower abdominal pain, Proctitis; Ordered By:Sheree Leonard; Patient competent to provide consent? 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 For issues or concerns call the Office [phone]. On the week end [phone] and ask for peds GI bacon skinner. For Scheduling [phone] Chief Complaint Accompanied by guardian. 14 year old male patient here for one month follow up abdominal pain. History of Present Illness 14 y m here for follow up of epigastric abdominal pain that is not responsive to acid suppression, canker sores and lower abdominal pain. Family hx of stomach infection. Pantoprazole and MiraLAX. 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 No H pylori. Normal disacchs. Whey IgG 42 rest of the food testing was negative. He feels better off of dairy but still has the pain. He feels better on the steroids. He stopped the prednisone 2 days ago. His stomach makes noise. He is staying away from dairy. He had ice cream while he was on the steroids and did ok. He had rice and salmon and broccoli with cheese and it did not bother him. He lost weight. He can't eat when he feels bad. He ate better on the steroids. The pain is not as bad. It is everyday. Decreasing the milk helped a lot. He is not really strictly milk free. It can be lower abdominal pain or epigastric. CT did not show any bowel thickening. No reflux symptoms. Pantoprazole daily. No eosinophilia. No oral sores now or sore throat. He feels bloated some times. The pain does not have to be after eating. The pain could be before eating. It lasts from a few hours to the whole day. BM's are 3 times per day. He tries to go 3 times a day at least. Sometimes her tries to go more often because he feels better. Less burning after the steroids. He has had diarrhea a couple of times this month. He got vaccinated for Covid. No history of Covid and no association of the pain with the vaccine. Review of Systems Constitutional: weight loss, but no fever, no fatigue and no change in appetite. Eyes: no vision problems and no eye pain. ENT: mouth ulcers, but no ear pain, no sinus or nasal congestion, no rhinorrhea, no epistaxis and no sore throat. Cardiovascular: no chest pain. Respiratory: no cough, no wheezing and no shortness of breath. Gastrointestinal: as noted in HPI, no dysphagia, no odynophagia and no hematochezia. Genitourinary: no increased urinary frequency and no dysuria. Musculoskeletal: no arthralgia, no joint swelling, no back pain and no muscle weakness. Integumentary: no rashes and no pruritus . he had eczema at one time but not now. Neurological: head (more content not included)... Normal [employer] ALLERGEN, CASEINon 1 [id number] Casein <0.10 Normal Class 0 [facility] Comment on above: Result Comment: Aron xie of Specific IgE Class Description of Class ----- < 0.10 0 Negative 0.10 - 0.31 0/I Equivocal/Low 0.32 - 0.55 I Low 0.56 - 1.40 II Moderate 1.41 - 3.90 III High 3.91 - 19.00 IV Very High 19.01 - 100.00 V Very High >100.00 Very High Performed By: #### L GUILLERMO GANT, CMP #### [facility] [address] [place], [place] [address] Tonya Tiradoen ALLERGEN, EGG WHITEon 2020 [id number] Egg White <1.10 Abnormal Class II [facility] Comment on above: Result Comment: Aron ls of Specific IgE Class Description of Class ----- < 0.10 0 Negative 0.10 - 0.31 0/I Equivocal/Low 0.32 - 0.55 I Low 0.56 - 1.40 II Moderate 1.41 - 3.90 III High 3.91 - 19.00 IV Very High 19.01 - 100.00 V Very High >100.00 Very High Performed By: #### L GUILLERMO GANT, CMP #### [facility] [address] [place], [place] [address] Tonya Tiradoen ALLERGEN, ALMONDon [id number] [place] <0.10 Normal Class 0 [facility] Comment on above: Performed By: #### A LMONDS ####[facility] [id number] [place], [place] [address]Riyrwk Katarina ALLERGEN, WHEYon 05-13-2020 Whey <0.10 Normal Class 0 [facility] Comment on above: Result Comment: Aron ls of Specific IgE Class Description of Class ----- < 0.10 0 Negative 0.10 - 0.31 0/I Equivocal/Low 0.32 - 0.55 I Low 0.56 - 1.40 II Moderate 1.41 - 3.90 III High 3.91 - 19.00 IV Very High 19.01 - 100.00 V Very High >100.00 Very High Performed By: #### Cholo ROBERTS #### [facility] [address] [place], [place] [address] Tonya Bray ALLERGEN, CORNon 05-12-2020 [id number] Farley <0.10 Normal Class 0 [facility] Comment on above: Result Comment: Leve ls of Specific IgE Class Description of Class ----- < 0.10 0 Negative 0.10 - 0.31 0/I Equivocal/Low 0.32 - 0.55 I Low 0.56 - 1.40 II Moderate 1.41 - 3.90 III High 3.91 - 19.00 IV Very High 19.01 - 100.00 V Very High >100.00 Very High Performed By: ###Morro GALVIN ####[facility] [address] [place] [id number] Bray ALLERGEN, PEANUTon [id number] Peanut <0.10 Normal Class 0 [facility] Comment on above: Result Comment: Leve ls of Specific IgE Class Description of Class ----- < 0.10 0 Negative 0.10 - 0.31 0/I Equivocal/Low 0.32 - 0.55 I Low 0.56 - 1.40 II Moderate 1.41 - 3.90 III High 3.91 - 19.00 IV Very High 19.01 - 100.00 V Very High >100.00 Very High Performed By: #### GUILLERMO RODRIGUEZ CMP #### [facility] [address] [place], [place] [address] Tonya Bray ALLERGEN, RICEon 05-12-2020 [id number] Rice <0.10 Normal Class 0 [facility] Comment on above: Result Comment: Leve ls of Specific IgE Class Description of Class ----- < 0.10 0 Negative 0.10 - 0.31 0/I Equivocal/Low 0.32 - 0.55 I Low 0.56 - 1.40 II Moderate 1.41 - 3.90 III High 3.91 - 19.00 IV Very High 19.01 - 100.00 V Very High >100.00 Very High Performed By: #### L GUILLERMO GANT CMP #### [facility] [address] [place], [place] [id number] Tonya Tiradoen ALLERGEN, SOYBEANon 05-13-19 [id number] Soybean <0.10 Normal Class 0 [facility] Comment on above: Result Comment: Aron ls of Specific IgE Class Description of Class ----- < 0.10 0 Negative 0.10 - 0.31 0/I Equivocal/Low 0.32 - 0.55 I Low 0.56 - 1.40 II Moderate 1.41 - 3.90 III High 3.91 - 19.00 IV Very High 19.01 - 100.00 V Very High >100.00 Very High Performed By: #### L GUILLERMO GANT, CMP #### [facility] [address] [place] [address] Tonya Tiradoen ALLERGEN, Petr 05-12-2020 [id number] Wheat <0.10 Normal Class 0 [facility] Comment on above: Result Comment: Aron ls of Specific IgE Class Description of Class ----- < 0.10 0 Negative 0.10 - 0.31 0/I Equivocal/Low 0.32 - 0.55 I Low 0.56 - 1.40 II Moderate 1.41 - 3.90 III High 3.91 - 19.00 IV Very High 19.01 - 100.00 V Very High >100.00 Very High Performed By: #### W AMADOA ####[facility] [address] [place], [place] [address]Lwlrud Katarina IMMUNOGLOBULIN E, TOTALon Immunoglobulin E, Total 11 IU/mL Critically low 18-628 [facility] Comment on above: Performed By: #### I MMUN E ####[facility] [id number] [place] [address]Gerken Katarina ALLERGEN, CASEIN IGGon 05-11 Casein, IGG 18.7 ug/mL Critically high 0.0-1.9 [facility] Comment on above: Performed By: #### C ASEAMINATAN ####[facility] [address] [place] [address]Gerken Katarina ALLERGEN, CORN IGGon 021 Farley, IGG 2.3 ug/mL Critically high 0.0-1.9 [facility] Comment on above: Performed By: #### L GUILLERMO GANT, CMP #### [facility] [address] [place] [address] Tonya Katarina ALLERGEN, RICE IGGon 021 Rice, IGG 2.9 ug/mL Critically high 0.0-1.9 [facility] Comment on above: Performed By: #### L GUILLERMO GANT, CMP #### [facility] [address] [place] [id number] Tonya Katarina ALLERGEN, SOY SANCHEZ IGGon Soy Sanchez, IGG <2.0 Normal 0.0-1.9 [facility] Comment on above: Performed By: #### S HEMA #### [facility] [address] [place] [id number] Tonya Katarina ALLERGEN, WHEAT IGGon 2020 Wheat, IGG 7.9 ug/mL Critically high 0.0-1.9 [facility] Comment on above: Performed By: #### W JORGE LUIS ####[facility] [id number] [place], [place] [address]Nhlfmy Katarina ALLERGEN, WHEY IGGon 05-11- 021 Whey, IGG 42.4 ug/mL Critically high 0.0-1.9 [facility] Comment on above: Performed By: #### W HEYY #### [facility] [address] [place], [place] [address] Tonya Bray IMMUNOGLOBULIN IGA QUANTITIA VEon 05-10-2020 Immunoglobulin A, Qn, Serum 133 mg/dL Normal 90-386 [facility] Comment on above: Performed By: #### I MIGAQN #### [facility] [address] [place] [id number] Tonyasouth Bray IMMUNOGLOBULIN IGG QUANTITAT IVEon 05-10-2020 Immunoglobulin G, Qn, Serum 640 mg/dL Critically low 671-1456 [facility] Comment on above: Performed By: #### L IPAGUILLERMO, CMP #### [facility] [address] [place] [id number] Tonya Brya IMMUNOGLOBULIN IGM QUANTITAT IVEon 05-10-2020 Immunoglobulin M, Qn, Serum 48 mg/dL Normal 35-168 [facility] Comment on above: Performed By: #### I MIGMQN ####[facility] [address] [place] [id number] Bray TISSUE TRANSGLUTAMINASE IGGo n 05-10-2020 t-Transglutaminase (tTG) IgG <2 Normal 0-5 [facility] Comment on above: Result Comment: Nega tive 0 - 5 Weak Positive 6 - 9 Positive >9 Performed By: #### L IPA, GUILLERMO, CMP #### [facility] [address] [place] [id number] Tonya Tiradoen CBC AUTO DIFFon 05-08-2020 BASO # 0.0 103/ul Normal 0.0-0.1 [facility] Comment on above: Performed By: #### L IPA, GUILLERMO, CMP #### [facility] [address] [place] [id number] [place]outh Tiradoen Basophils/100 WBC (Bld) 0.4 % Normal 0.2-2.0 [facility] Comment on above: Performed By: #### L GUILLERMO GANT, CMP #### [facility] [address] [place] [address] Tonya Katarina EO # 0.1 103/ul Normal 0.0-0.7 [facility] Comment on above: Performed By: #### L GUILLERMO GANT, CMP #### [facility] [address] [place] [address] Tonya Katarina Eosinophils/100 WBC (Bld) 2.8 % Normal 0.9-7.0 [facility] Comment on above: Performed By: #### L GUILLERMO GANT, CMP #### [facility] [address] [place] [address] Tonyasouth Tiradoen Erythrocyte distribution width (RBC) [Ratio] 12.2 % Normal 11.0-15.0 [facility] Comment on above: Performed By: #### L GUILLERMO GANT, CMP #### [facility] [address] [place] [address] Tonya Katarina Hematocrit (Bld) [Volume fraction] 41.8 % Critically low 42.0-54.0 [facility] Comment on above: Performed By: #### L GUILLERMO GANT, CMP #### [facility] [address] [place] [address] Tonyasouth Bray Hemoglobin (Bld) [Mass/Vol] 14.3 g/dL Normal 14.0-18.0 [facility] Comment on above: Performed By: #### L GUILLERMO GANT, CMP #### [facility] [address] [place] [address] Tonya Katarina IG # 0.01 10e3/ul Normal 0.00-0.03 [facility] Comment on above: Performed By: #### L GUILLERMO GANT, CMP #### [facility] [address] [place] [address] Tonya Katarina IG % 0.2 % Normal 0.0-0.5 [facility] Comment on above: Performed By: #### L GUILLERMO GANT, CMP #### [facility] [address] [place] [address] Tonya Katarina LYMPH # 1.6 103/ul Normal 1.2-3.8 [facility] Comment on above: Performed By: #### L GUILLERMO GANT, CMP #### [facility] [address] [place] [address] Tonya Katarina Lymphocytes/100 WBC (Bld) 33.9 % Normal 20.5-60.0 [facility] Comment on above: Performed By: #### L GUILLERMO GANT, CMP #### [facility] [address] [place] [address] Tonya Katarina MANUAL DIFF REQ NO Normal [facility] Comment on above: Performed By: #### L GUILLERMO GANT, CMP #### [facility] [address] [place] [address] Tonya Katarina MCH (RBC) [Entitic mass] 27.8 pg Normal 25.9-34.0 [facility] Comment on above: Performed By: #### L GUILLERMO GANT, CMP #### [facility] [address] [place] [address] Tonyasouth Tiradoen MCHC (RBC) [Mass/Vol] 34.2 g/dL Normal 29.9-35.2 [facility] Comment on above: Performed By: #### L GUILLERMO GANT, CMP #### [facility] [address] [place] [address] Tonyasouth Tiradoen MCV (RBC) [Entitic vol] 81.2 fL Normal 76.3-90.1 [facility] Comment on above: Performed By: #### L GUILLERMO GANT, CMP #### [facility] [address] [place] [address] Tonya Katarina MONO # 0.3 103/ul Normal 0.3-0.8 [facility] Comment on above: Performed By: #### L GUILLERMO GANT, CMP #### [facility] [address] [place] [address] Tonya Katarina Monocytes/100 WBC (Bld) 6.5 % Normal 1.7-12.0 [facility] Comment on above: Performed By: #### L GUILLERMO GANT, CMP #### [facility] [address] [place], [place] [address] Tonya Katarina NEUT # 2.6 103/ul Normal 1.4-6.5 [facility] Comment on above: Performed By: #### L GUILLERMO GANT, CMP #### [facility] [address] [place], [place] [address] Tonya Bray Neutrophils/100 WBC (Bld) 56.2 % Normal 43.0-75.0 [facility] Comment on above: Performed By: #### L GUILLERMO GANT, CMP #### [facility] [address] [place], [place] [address] Tonyasouth Tiradoen Platelet mean volume (Bld) [Entitic vol] 12.5 fL Normal 9.5-13.5 [facility] Comment on above: Performed By: #### L GUILLERMO GANT, CMP #### [facility] [address] [place] [id number] Tonya Katarina PLT 158 103/ul Normal 150-450 [facility] Comment on above: Performed By: #### L GUILLERMO GANT, CMP #### [facility] [address] [place] [id number] Tonya Katarina RBC 5.15 106/ul Normal 3.30-5.40 [facility] Comment on above: Performed By: #### L GUILLERMO GANT, CMP #### [facility] [address] [place], [place] [address] Tonya Katarina WBC 4.6 103/ul Normal 4.0-11.0 [facility] Comment on above: Performed By: #### L GUILLERMO GNAT, CMP #### [facility] [address] [place], [place] [address] Otnya Katarina CRPon 05-08-2020 CRP [Mass/Vol] mg/L Normal <=1.0 [facility] Comment on above: Performed By: #### L IVER, TSH, RENAL, CRP ####[facility] [address] [place], [place] [address]Giafsl Katarina FREE T4on 05-08-2020 Free T4 [Mass/Vol] 1.03 ng/dL Normal 0.78-2.19 [facility] Comment on above: Performed By: #### L IPA, GUILLERMO, CMP #### [facility] [address] [place], [place] [address] Tonyasouth Tiradoen LIVER PROFILEon 05-08-2020 Albumin [Mass/Vol] 4.3 g/dL Normal 3.5-5.0 [facility] Comment on above: Performed By: #### L IVER, TSH, RENAL, CRP ####[facility] [address] [place] [id number] Katarina Albumin/Globulin [Mass ratio] 1.5 {ratio} Normal [facility] Comment on above: Performed By: #### L IVER, TSH, RENAL, CRP ####[facility] [address] [place] [id number] Katarina ALP [Catalytic activity/Vol] 164 U/L Normal 65-260 [facility] Comment on above: Performed By: #### L IVER, TSH, RENAL, CRP ####[facility] [address] [place] [address]Gerken Katarina ALT [Catalytic activity/Vol] 16 U/L Critically low 21-72 [facility] Comment on above: Performed By: #### L IVER, TSH, RENAL, CRP ####[facility] [address] [place] [id number] Katarina AST [Catalytic activity/Vol] 10 U/L Critically low 17-59 [facility] Comment on above: Performed By: #### L IVER, TSH, RENAL, CRP ####[facility] [address] [place] [id number] Katarina BILI, CONJUGATED 0.1 mg/dL Normal 0.0-0.3 [facility] Comment on above: Performed By: #### L IVER, TSH, RENAL, CRP ####[facility] [address] [place] [address]Gerken Katarina Bilirubin [Mass/Vol] 0.4 mg/dL Normal 0.2-1.3 [facility] Comment on above: Performed By: #### L IVER, TSH, RENAL, CRP ####[facility] [address] [place], [place] [address]Apocuc Katarina Globulin (S) [Mass/Vol] 2.8 g/dL Normal [facility] Comment on above: Performed By: #### L IVER, TSH, RENAL, CRP ####[facility] [address] [place], [place] [address]Ptpxyh Katarina Protein [Mass/Vol] 7.1 g/dL Normal 6.1-8.2 [facility] Comment on above: Performed By: #### L IVER, TSH, RENAL, CRP ####[facility] [address] [place], [place] [address]Aobgbt Katarina RENAL FUNCTION PANELon 05-08 Calcium [Mass/Vol] 9.7 mg/dL Normal 8.4-10.2 [facility] Comment on above: Performed By: #### L IVER, TSH, RENAL, CRP ####[facility] [address] [place] [id number] Katarina Chloride [Moles/Vol] 106 mmol/L Normal 98-107 [facility] Comment on above: Performed By: #### L IVER, TSH, RENAL, CRP ####[facility] [address] [place] [id number] Katarina CO2 [Moles/Vol] 29.7 mmol/L Normal 22.0-30.0 [facility] Comment on above: Performed By: #### L IVER, TSH, RENAL, CRP ####[facility] [address] [place] [phone] Katarina Creatinine [Mass/Vol] 1.00 mg/dL Normal 0.66-1.25 [facility] Comment on above: Performed By: #### L IVER, TSH, RENAL, CRP ####[facility] [address] [place] [id number] Katarina Glucose [Mass/Vol] 69 mg/dL Critically low 74-106 [facility] Comment on above: Performed By: #### L IVER, TSH, RENAL, CRP ####[facility] [address] [place] [phone] Katarina Phosphate [Mass/Vol] 3.8 mg/dL Normal 2.5-4.5 [facility] Comment on above: Performed By: #### L IVER, TSH, RENAL, CRP ####[facility] [address] [place], [place] [address]Pfinys Katarina Potassium [Moles/Vol] 3.6 mmol/L Normal 3.4-5.0 [facility] Comment on above: Performed By: #### L IVER, TSH, RENAL, CRP ####[facility] [address] [place] [phone] Katarina Sodium [Moles/Vol] 143 mmol/L Normal 137-145 [facility] Comment on above: Performed By: #### L IVER, TSH, RENAL, CRP ####[facility] [address] [place], [place] [address]Gerken Katarina Urea nitrogen [Mass/Vol] 15.0 mg/dL Normal 6.4-19.3 [facility] Comment on above: Performed By: #### L IVER, TSH, RENAL, CRP ####[facility] [address] [place], [place] [id number] Katarina [facility]1 Normal <=15 [facility] Comment on above: Performed By: #### S EDR ####[facility] [address] [place], [place] [id number] Katarina TSHon 05-08-2020 TSH 1.178 uIU/mL Normal 0.430-3.750 [facility] Comment on above: Performed By: #### L IVER, TSH, RENAL, CRP ####[facility] [address] [place], [place] [id number] Katarina TSH RANGE SEE BELOW Normal [facility] Comment on above: Result Comment: <0.3 4 UIU/ml HYPERTHYROID 0.34-5.60 UIU/ml EUTHYROID >5.60 UIU/ml HYPOTHYROID Performed By: #### L IVER, TSH, RENAL, CRP ####[facility] [address] [place], [place] [address]Mmkrdw Karen VITAMIN D 25 OHon 05-08-2020 VIT D 25-OH <20.0 Normal [facility] Comment on above: Performed By: #### L GUILLERMO GANT, CMP #### [facility] [address] [place], [place] [address] Tonya Bray VIT D RANGES SEE BELOW Normal [facility] Comment on above: Result Comment: <20 ng/mL Vit D deficient 20 - <30 ng/mL Vit D insufficient 30 - 100 ng/mL Vit D sufficient >100 ng/mL Potential Toxicity Performed By: #### L GUILLERMO GANT, CMP #### [facility] [address] [place], [place] [address] Tonya Bray DISACCHARIDASE ANALYSISon INTERPRETATION SEE BELOW Normal [facility] Comment on above: Result Comment: The intestinal biopsy from this patient had normal disaccharidase activities. Test Performed by: [facility] [place] [address] Performed By: #### D MARLENA #### [facility] [address] [place] [address] LACTASE 32.0 Normal [facility] Comment on above: Result Comment: ---- REFERENCE VALUE Range 24.5 +/- 8.0 Abnormal <15.0 Units = uM/min/gram protein Performed By: #### D MARLENA #### [facility] [address] [place] [address] MALTASE 201.3 Normal [facility] Comment on above: Result Comment: ---- REFERENCE VALUE Range 160.8 +/- 62.8 Abnormal <100.0 Units = uM/min/gram protein Performed By: #### D MARLENA #### [facility] [address] [place] [address] PALATINASE 11.8 Normal [facility] Comment on above: Result Comment: ---- REFERENCE VALUE Range 11.1 +/- 6.5 Abnormal <5.0 Units = uM/min/gram protein Performed By: #### D MARLENA #### [facility] [address] [place] [address] SUCRASE 66.3 Normal [facility] Comment on above: Result Comment: ---- REFERENCE VALUE Range 54.4 +/- 25.4 Abnormal <25.0 Units = uM/min/gram protein Performed By: #### D MARLENA #### [facility] [address] [place] [address] Order Reconciliationon 05-01 Order Reconciliation Page 1 Discharge Reconciliation Document Reconciliation Type: Discharge requested on behalf of Sheree Leonard (Physician) done by Sheree Leonard) Discharge - Reconciliation: 01-May-2020 12:29 by: Sheree Leonard) Home Medications EnteredHOME MEDICATIONS AT DISCHARGE DateReconciliation Comment/ Additional Information Carafate 01-May-2020 11:16 Carafate 01-May-2020 11:16 Carafate is continued as Carafate dicyclomine 01-May-2020 11:17 dicyclomine 01-May-2020 11:17 dicyclomine is continued as dicyclomine pantoprazole 01-May-2020 11:16 pantoprazole 01-May-2020 11:16 pantoprazole is continued as pantoprazole All Active Home Medications at time of Discharge Reconciliation: 01-May-2020 12:29 Carafate dicyclomine pantoprazole Normal [facility] Patient Profile - Preop - Pe diatric v2on 05-01-2020 Patient Profile - Preop - Pediatric v2 Profile: Initial Info: How to be AddressedShade Parent NameCondavid Branch Spoken Language PreferredEnglish Parental Spoken Language PreferredEnglish Legal Custodiangranrony Branch Are you currently using the Personal Electronic Health Record or MY[employer]no Are you interested in learning more about [employer] for the management of your healthyes, information provided Stated Reason for AdmissionEGD/colon Abd pain, nausea Primary Contact Name and NumberConnie [phone] Patient Belongingsgiven to parent/guardian Patient Belongings Given to Parent/Guardianclothing; cell phone/electronics Medications Brought to Hospitalno General Health: Pediatric Weight (kg)63.4 kilogram(s) Weight Methodactual (measured) Scale Typestanding Pediatric Height / Length (cm)173.5 centimeter(s) Height Methodheight measured BMI (kg/m2)21.061 square meter Patient or Family Member Reaction to Anesthesiano previous reaction Blood Avoidance/Restrictionsnone Previous Transfusion Reactionno Health Mgmt: Symptoms/Conditions Managed at Homegastrointestinal Gastrointestinal Symptoms/Conditionsabdomin al pain Gastrointestinal Management Strategiesmedication therapy Barriers to Managing Healthnone Relationship/Environ: Primary Caregivergrandmother Lives Withfather; grandmother Resource/Environmental Concernsnone [facility] Anticipated at Transitionnone Substance: Current or Former Substance Use never: Cigarette/Tobacco, e-Cigarette/Vaping, Alcohol YES: Street Drugs Street Drug/Inhalant/ Medication Use Statuscurrent street drug/inhalant/medication abuse Street Drug/Medication/ Inhalant Typemarijuana Street Drug/Medication/ Inhalant Routesmoking Frequency of Street Drug/Medication/Inhalant Use2-4 times/month Risk Screens: COVID-19 Screening Completedno exposure or symptoms Advance Directive/DNRnot applicable Advance Directive Mental Healthnot applicable Patient is Able to be Assessed for Learningyes Educational Togsj82qn10th grade Factors Influence Readiness to Learnnone, ready to learn Factors Impact Ability to Learnnone Devices/Methods Used to Communicatenone Learning Preferencescomputer/corporate legal intern et, verbal instruction, written material Cultural Considerationsnone Developmental Considerationsnone Baptist Considerationsnone Other learner availableyes Other Learner is Able to be Assessed for Learningyes Other Learnersfamily, legal guardian Educational Levelnot asked Factors Influencing Readiness to Learnnone, ready to learn Factors that Impact Ability to Learnnone Devices/Methods Used to Communicatenone Learning Preferencesverbal instruction, written material Cultural Considerationsnone Developmental Considerationsnone Baptist Considerationsnone During the past month, have you often been bothered by feeling down, depressed or hopelessno During the past month, have you often had little interest or pleasure in doing thingsno Have you had any thoughts of harming yourselfno Have you had any thoughts of harming anyone [place] RiskPatient location auto qualifies him/her for HIGH RISK. Are there any cultural, spiritual, religion practices/values/needs that are important for us to knowno Pain Scalenumerical 0-10 Pain Scale Educationteaching provided Current Pain Level0 = None Acceptable Pain Level4 = Moderate Chronic Painno Additional Information: Information Review: Allergies, Home Meds and Significant Events have been Reviewed and Verified with Patient/Familyyes Allergy, Intolerance, Adverse Event: Allergies: penicillin: Drug, Rash, Active Electronic Signatures: Eusebia Silva (ANA M) (Signed 01-May-2020 11:28) Authored: Initial Info, General Health, Health Mgmt, Relationship/Environ, Substance, Risk Screens, Additional Information Last Updated: 01-May-2020 11:28 by Eusebia Silva (ANA M) Normal [facility] Preop Checkliston 05-01-2020 Preop Checklist Preop Checklist: Preop Checklist: Arrival [id number] Arrival Time10:41 Procedure TypeEGD/colon Temperature C36.7 degrees C Temperature F98 degrees F Heart Rate65 beats per minute Respiratory Rate20 breath per minute Blood Pressure Ohqkvlmj225 mm/Hg Blood Pressure Rupiswcdx46 mm/Hg NPO [id number] 07:00 ID Band Onyes Allergy Bandyes Consent Signedyes H&P Completeyes Anesthesia Assessment Completedyes EKG Performednot ordered Chest X-Ray Performednot ordered HCG Urine TestN/A Chlorhexadine Bath Givennot applicable Nasal Antiseptic Appliednot applicable Hair Washednot applicable Soap and water bath with hair shampoo the night before surgerynot applicable Hat placed on prior to transportnot applicable SCD's Appliednot applicable Denturesnot applicable Prostheticsnot applicable Hearing Aidsnot applicable Valuables Securedsent with family Glasses / Contactsnot applicable Bowel Prepyes TypeMiralax dulcolax Bowel Prep Completed as Instructedno Stools Clearyes Otherdid not take dulcolax Cardiovascular Assessment: Apicalregular Radial Pulsespalpable Pedal Pulsespalpable Extremitieswarm, well perfused Respiratory Assessment: Respirationsunlabored regular Air Exchangeequal, good Breath Soundsclear Neurological Assessment: Level of Consciousnessalert, oriented Mobilitymoves all extremities Able to Express Selfyes Age Appropriateyes Emotional Statuscalm Preop Education: Surgical Site Infection Preventionyes Pain Scales and Managementyes Language / Communication: Language / CommunicationEnglish Electronic Signatures: Eusebia Silva (RN) (Signed 01-May-2020 11:20) Authored: Preop Checklist Last Updated: 01-May-2020 11:20 by Eusebia Silva (RN) Normal [facility] Surgical Pathology Depar tmenton 05-01-2020 [facility] Surgical Pathology Department Name ALEXANDR BRANCH Pathologist: LEELA GARCÍA MD Date of Procedure: 05/01/2020 Date Received: 05/01/2020 Date Reported 05/05/2020 Submitting Physician: SHEREE LEONARD M.D. Location: Other External # FINAL DIAGNOSIS A. DUODENUM, BIOPSY: -- DUODENAL MUCOSA, WITHIN NORMAL LIMITS. B. STOMACH, BIOPSY: -- GASTRIC ANTRAL AND OXYNTIC-TYPE MUCOSA WITH PATCHY EOSINOPHILIC GASTRITIS AND FOCAL SUPERFICIAL EROSION, SEE COMMENT. -- NO HELICOBACTER PYLORI ORGANISMS IDENTIFIED ON IMMUNOHISTOCHEMICAL STAIN. C. ESOPHAGUS, DISTAL, BIOPSY: -- SQUAMOUS MUCOSA, WITHIN NORMAL LIMITS. D. ESOPHAGUS, MID, BIOPSY: -- SQUAMOUS MUCOSA, WITHIN NORMAL LIMITS. E. TERMINAL ILEUM, BIOPSY: -- SMALL INTESTINE MUCOSA, WITHIN NORMAL LIMITS. F. COLON, RIGHT, BIOPSY: -- COLONIC MUCOSA, WITHIN NORMAL LIMITS. G. COLON, TRANSVERSE, BIOPSY: -- COLONIC MUCOSA, WITHIN NORMAL LIMITS. H. COLON, LEFT, BIOPSY: -- COLONIC MUCOSA, WITHIN NORMAL LIMITS. I. RECTUM, BIOPSY: -- FOCAL MILDLY ACTIVE COLITIS. COMMENT: The eosinophilic infiltrate is patchy, and more severe in the body than in the antrum. Given the lack of eosinophilic inflammation in the remainder of the gastrointestinal tract, the etiology of the gastritis is unknown. Clinical correlation is suggested. The gross and/or microscopic findings were reviewed in conjunction with pathology resident, Moreno Hrering M.D. Electronically Signed Out By LEELA GARCÍA MD/MarciaXR By the signature on this report, the individual or group listed as making the Final Interpretation/Diagnosis certifies that they have reviewed this case. Clinical History: Canker sores, abdominal pain, reflux; nodular stomach, erythema, edema esophagus, normal duodenum, normal colon, TI, rectum hemorrhage Specimens Submitted As: A: D-DUODENUM B: G-GASTRIC C: DE-DISTAL ESOPHAGUS D: ME-MID ESOPHAGUS E: TI-TERMINAL ILEUM F: RC-RIGHT COLON G: TC-TRANSVERSE COLON H: LC-LEFT COLON I: R-RECTUM Gross Description: A: Received in formalin, labeled with the patient's name and hospital number and D , are multiple fragments of chaney, soft tissue aggregating to 1.0 x 0.2 x 0.2 cm. The specimen is submitted in toto in one cassette. SBS B: Received in formalin, labeled with the patient's name and hospital number and G , are multiple fragments of chaney, soft tissue aggregating to 1.4 x 0.3 x 0.2 cm. The specimen is submitted in toto in one cassette. SBS C: Received in formalin, labeled with the patient's name and hospital number and DE , are multiple fragments of chaney, soft tissue aggregating to 0.9 x 0.3 x 0.1 cm. The specimen is submitted in toto in one cassette. SBS D: Received in formalin, labeled with the patient's name and hospital number and ME , are multiple fragments of chaney, soft tissue aggregating to 1.0 x 0.2 x 0.1 cm. The specimen is submitted in toto in one cassette. SBS E: Received in formalin, labeled with the patient's name and hospital number and TI , are multiple fragments of chaney, soft tissue aggregating to 1.3 x 0.2 x 0.2 cm. The specimen is submitted in toto in one cassette. SBS F: Received in formalin, labeled with the patient's name and hospital number and RC , are multiple fragments of chaney, soft tissue aggregating to 1.0 x 0.2 x 0.1 cm. The specimen is submitted in toto in one cassette. SBS G: Received in formalin, labeled with the patient's name and hospital number and TC , are multiple fragments of chaney, soft tissue aggregating to 0.9 x 0.2 x 0.2 cm. The specimen is submitted in toto in one cassette. SBS H: Received in formalin, labeled with the patient's name and hospital number and LC , are multiple fragments of chaney, soft tissue aggregating to 1.2 x 0.3 x 0.1 cm. The specimen is submitted in toto in one cassette. SBS I: Received in formalin, labeled with the patient's name and hospital number and R , are multiple fragments of chaney, soft tissue aggregating to 1.2 x 0.2 x 0.1 cm. The specimen is submitted in toto in one cassette. SBS n/05/02/2020 One or more of the reagents used to perform assays on this specimen MAY have contained components considered to be Laboratory Developed Tests (LDT). LDT's have not been cleared or approved by the U.S. Food and Drug Administration. These assays/tests were developed and their performance characteristics determined by the Department of Pathology Immunohistochemistry Labs at [facility]. The FDA does not require this test to go through premarket FDA review. This test is used for clinical purposes. It should not be regarded as investigational or for research. This laboratory is certified under the Clinical Laboratory Improvement Amendments (CLIA) as qualified to perform high complexity clinical laboratory testing. The assays/tests were performed with appropriate positive and negative controls which stained appr (more content not included)... Normal [facility] Comment on above: Performed By: #### [facility] ####[facility] Surgical Pathology [address] [facility] [address] CORONAVIRUS 2019, SCREEN ASY MPTOMATICon 04-29-2020 SARS-CoV-2 (COVID-19) RNA SELMA+probe Ql (Unsp spec) Not detected Normal Not Detected [facility] Comment on above: Result Comment: . This assay is designed to detect the N, ORF1ab and/or S genes of SARS-CoV-2 via nucleic acid amplification. A Negative (NOT DETECTED) result does not preclude 2019-nCoV infection since the adequacy of sample collection and/or low viral burden may result in presence of viral nucleic acids below the clinical sensitivity of this test method. Negative (NOT DETECTED) result should not be used as the sole basis for treatment or other patient management decisions. Rather negative results should be combined with clinical observations, patient history, and epidemiological information to make patient management decisions. Fact sheet for providers: https://www.fda.gov/media/034489/download Fact sheet for patients: https://www.fda.gov/media/639601/download This test has received FDA Emergency Use Authorization (EUA) and has been verified by [facility] ([facility]). This test is only authorized for the duration of time that circumstances exist to justify the authorization of the emergency use of in vitro diagnostic tests for the detection of SARS-CoV-2 virus and/or diagnosis of COVID-19 infection under section 564(b)(1) of the Act, 21 U.S.C. 360bbb-3(b)(1), unless the authorization is terminated or revoked sooner. [facility] is certified under CLIA-88 as qualified to perform high complexity testing. Testing is performed in the [facility] laboratories located at [address] [place] [address]. Performed By: #### C [facility] #### [address] [place] [address] Covid 19 Resultson 1 SARS-CoV-2 (COVID-19) RNA SELMA+probe Ql (Unsp spec) NEGATIVE COVID-19 Test Coronaviruses are common world-wide and are the cause of many common colds. SARS-COV2 is a new coronavirus that began circulating worldwide in 2019 so we are calling it COVID-19. It has been estimated that four out of five patients with COVID-19 will recover at home without the need for medical attention. Symptoms of COVID-19 include cough, fever, shortness of breath, loss of taste or smell and other flu-like symptoms including chills, sore muscles, sore throat, and headache. Severe illness is more common in older people and people with other health problems such as high blood pressure, obesity, and immune system problems. If the test is positive, you have COVID-19. You will be contacted by the ordering physicians office and instructed to remain on home isolation, in accordance with CDC guidelines. You may also be contacted by the [facility] to see if any of your close contacts may have been exposed to the virus and need to quarantine. If the test is negative, you likely do not have COVID-19 at this time, but you still may have a different illness that can spread to other people (like Influenza, or the Flu) and could still be at risk for getting COVID-19. We recommend that you stay away from other people to limit the spread of illness until your symptoms are improving and you are fever-free for 24 hours without the use of fever lowering medications such as acetaminophen or ibuprofen. No test is 100% accurate so if you are still concerned you may have COVID-19, talk to your doctor about the need to continue to stay away from others. Medicines Acetaminophen (Tylenol and others) is generally safe. Anti-inflammatory medications, such as Ibuprofen (Advil or Motrin) or Naproxen (Aleve) can also be used. Autq-oho-aaczbic cough and cold medicines can be used according to the instructions on the package. Some ifbx-whg-dysjjnc medicines also contain acetaminophen. Make sure you are not taking more than your recommended dose For those not hospitalized, there is no specific treatment available for this illness. Antibiotics do not treat Coronaviruses. Follow-Up Follow up with your doctor by scheduling a virtual visit or consider follow-up at one of our urgent care fever clinics. If you are having difficulty breathing, or are very weak and having difficulty standing, this is a medical emergency. Call 911 or have someone take you to the nearest emergency room immediately. If possible, wear a facemask. Additional guidance from the CDC for patients who tested POSITIVE for COVID-19 How to isolate: Isolate yourself in a specific room at home and limit your contact with others. Use a separate bathroom from other members of the household, when possible. Leave home only to get essential medical care. Do not go to work, school or public areas. Avoid using public transportation, ride-sharing, or taxis. Restrict contact with pets and other animals. If you must care for your pet or be around animals while you are sick, wash your hands before and after your interaction and wear a facemask. Make sure that shared spaces in the home have good airflow, such as by an air conditioner or an opened window, weather permitting. Personal Hygiene Procedures: Wear a face mask when in the same room as other people or pets. If a face mask interferes with your breathing, others should wear a mask when sharing space with you. Frequent hand-washing: wash your hands with soap and water for at least 20 seconds. If soap and water are not available, use alcohol-based hand lamp tester and inspector. Avoid touching your eyes, nose, and mouth with unwashed hands. Household Hygiene Procedures: Avoid sharing personal household items such as dishes, glassware, cups, eating utensils, towels or bedding with other people or pets in your home. After use, these items should be washed with soap and hot water. Disinfect all high-touch surfaces every day with antibacterial cleaning solutions such as Lysol wipes, bleach, cleansers, etc. High-touch surfaces include tabletops, doorknobs, bathroom fixtures, toilets, phones, keyboards, tablets and bedside tables. Immediately clean any surfaces that may have blood, poop or body fluids on them, using antibacterial cleaning solutions such as Lysol wipes, bleach, cleansers, etc. If clothing or bedding come into contact with blood, poop or body fluids, they should be washed immediately. Follow the directions on the laundry detergent and clothing labels but hot water is recommended when possible. Stopping home isolation precautions: If possible, consult your doctor before stopping home isolation precautions. According to the CDC, you can discontinue home isolation precautions when you have met both of these criteria: Your fever and respiratory symptoms have been gone for 24 hours without the use of any medicines like ibuprofen (Motrin) (more content not included)... Normal [facility] CORONAVIRUS 2019, SCREEN ASY MPTOMATICon 04-28-2020 Lab Specimen Source Nasal, Nasopharyngeal Normal [facility] Comment on above: Performed By: #### C OVSC #### [facility] [address] [place] [address] Coronavirus 2019 RNA by PCR, Screening Asymptomticon 04-28-2020 Coronavirus 2019 RNA by PCR, Screening Asymptomtic NOT DETECTED Normal See Below -[facility] [facility] Work Phone: Comment on above: SOURCE: Nasal, Nasop haryngealReference Range: Not Detected.This assay is designed to detect the N, ORF1ab and/or S genes of SARS-CoV-2 via nucleic acid amplification. A Negative (NOT DETECTED) result does not preclude 2019-nCoV infection since the adequacy of sample collection and/or low viral burden may result in presence of viral nucleic acids below the clinical sensitivity of this test method. Negative (NOT DETECTED) result should not be used as the sole basis for treatment or other patient management decisions. Rather negative results should be combined with clinical observations, patient history, and epidemiological information to make patient management decisions.Fact sheet for providers: https://www.fda.gov/media/456214/downloadFact sheet for patients: https://www.fda.gov/media/644758/downloadThis test has received FDA Emergency Use Authorization (EUA) and has been verified by [facility] ([facility]). This test is only authorized for the duration of time that circumstances exist to justify the authorization of the emergency use of in vitro diagnostic tests for the detection of SARS-CoV-2 virus and/or diagnosis of COVID-19 infection under section 564(b)(1) of the Act, 21 U.S.C. 360bbb-3(b)(1), unless the authorization is terminated or revoked sooner. [facility] is certified under CLIA-88 as qualified to perform high complexity testing. Testing is performed in the [facility] laboratories located at [address] [place] [address]. CORONAVIRUS 2018, SCREEN ASY MPTOMATICon 04-25-2020 DATE OF SYMPTOM ONSET [[id number]]? Canceled Normal [facility] Comment on above: Order Comment: TEST CORONAVIRUS 2018, SCREEN ASYMPTOMATIC WAS CANCELLED, 04/25/2020 12:39 Patient was no show for COVID testing. Performed By: #### C OVSC #### [address] [place] [address] SARS-CoV-2 (COVID-19) RNA SELMA+probe Ql (Unsp spec) Canceled Normal [facility] Comment on above: Order Comment: TEST CORONAVIRUS 2018, SCREEN ASYMPTOMATIC WAS CANCELLED, 04/25/2020 12:39 Patient was no show for COVID testing. Result Comment: . This assay is designed to detect the N, ORF1ab and/or S genes of SARS-CoV-2 via nucleic acid amplification. A Negative (NOT DETECTED) result does not preclude 2019-nCoV infection since the adequacy of sample collection and/or low viral burden may result in presence of viral nucleic acids below the clinical sensitivity of this test method. Negative (NOT DETECTED) result should not be used as the sole basis for treatment or other patient management decisions. Rather negative results should be combined with clinical observations, patient history, and epidemiological information to make patient management decisions. Fact sheet for providers: https://www.fda.gov/media/846765/download Fact sheet for patients: https://www.fda.gov/media/916760/download This test has received FDA Emergency Use Authorization (EUA) and has been verified by [facility] ([facility]). This test is only authorized for the duration of time that circumstances exist to justify the authorization of the emergency use of in vitro diagnostic tests for the detection of SARS-CoV-2 virus and/or diagnosis of COVID-19 infection under section 564(b)(1) of the Act, 21 U.S.C. 360bbb-3(b)(1), unless the authorization is terminated or revoked sooner. [facility] is certified under CLIA-88 as qualified to perform high complexity testing. Testing is performed in the [facility] laboratories located at [address] [place] [address]. Performed By: #### C OVSC #### [place] [address] FREE THYROXINE INDEX T7on FTI 2.80 Normal [facility] Comment on above: Performed By: #### L GUILLERMO GANT CMP #### [facility] [address] [place] [address] Tonya Katarina T3U 35.0 % Normal 23.5-40.5 [facility] Comment on above: Performed By: #### L GUILLERMO GANT CMP #### [facility] [address] [place] [address] Tonya Katarina T4 [Mass/Vol] 8.00 ug/dL Normal 5.53-11.00 [facility] Comment on above: Performed By: #### L GUILLERMO GANT CMP #### [facility] [address] [address] Tnoya Bray TSHon 04-07-2020 TSH 1.686 uIU/mL Normal 0.430-3.750 [facility] Comment on above: Performed By: #### L GUILLERMO GANT, CMP #### [facility] [address] [id number] Tonya Bray TSH RANGE SEE BELOW Normal [facility] Comment on above: Result Comment: <0.3 4 UIU/ml HYPERTHYROID 0.34-5.60 UIU/ml EUTHYROID >5.60 UIU/ml HYPOTHYROID Performed By: #### L GUILLERMO GANT, CMP #### [facility] [address] [address] Tonya Bray CORONAVIRUS 2019, SCREEN ASY MPTOMATICon 04-04-2020 Lab Specimen Source Nasal, Nasopharyngeal Normal [facility] Comment on above: Order Comment: TEST CORONAVIRUS 2019, SCREEN ASYMPTOMATIC WAS CANCELLED, 04/25/2020 12:39 Patient was no show for COVID testing. Performed By: #### C OVSC #### [facility] [address] 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) Nausea in adult (787.02) (R11.0) Abdominal pain, chronic, epigastric (789.06,338.29) (R10.13,G89.29) Lower abdominal pain (789.09) (R10.30) Orders Abdominal pain, chronic, epigastric, Canker sores oral, Chronic headache, Gastro-esophageal reflux, Lower abdominal pain, Nausea in adult Colonoscopy; Status:Active; Requested for:31Mar2020; Perform:[facility]; Due:29Jun2020; Last Updated By:Jenniffer Souza; 03/31/2020 2:43:58 PM;Ordered; For:Abdominal pain, chronic, epigastric, Canker sores oral, Chronic headache, Gastro-esophageal reflux, Lower abdominal pain, Nausea in adult; Ordered By:Sheree Leonard; Patient competent to provide consent? : Yes-pt mentally competent to provide consent Endoscopy - Upper GI; Status:Active; Requested for:31Mar2020; Perform:[facility]; Order Comments:disacchs possible labs; Due:29Jun2020; Last Updated By:Jenniffer Souza; 03/31/2020 2:43:39 PM;Ordered; For:Abdominal pain, chronic, epigastric, Canker sores oral, Chronic headache, Gastro-esophageal reflux, Lower abdominal pain, Nausea in adult; Ordered By:Sheree Leonard; Patient competent to provide consent? : Yes-pt mentally competent to provide consent Sedation Type : Moderate (Routine) Patient Discussion/Summary epigastric abdominal pain that is not responsive to acid suppression canker sores lower abdominal pain Family hx of stomach infection. Plan EGD Colon and disacchs will follow up labs from [place]-done Can stop everything but pantoprazole use MiraLAX if the stools get hard RTC after the scope. For issues or concerns call the Office [phone]. On the week end [phone] and ask for peds GI bacon skinner. For Scheduling [phone] Chief Complaint Accompanied by grandparent(s). New patient visit for abdominal pain History of Present Illness 14 y M here at the request of Dr. Nitish Cedeno for the c/c of abdominal pain. Nl UGI and CT showed stable mild splenomegaly and small cyst left kidney. He is on cyproheptadine, Pepcid, Protonix and dicyclomine. He was seen in GI for one visit 07/2016. He had migraine and he was taking a lot of NSAID's and had stomach pain and canker sores and he was started on cyproheptadine to decrease NSAID use. He has a history of allergies and reflux. For the past 3 months he has had a lot more stomach pain. No change in diet or medications. No preceding illness or triggers. It has been even worse the past week. Epigastric pain and pain in both lower quadrants. He has nausea and urge. He has not been vomiting. If he has greasy or fast food he feels worse. the pain lasts hours. He feels acid reflux. He thinks Pepcid and pantoprazole helped, but he doesn't feel that much better and he has been on them for a month. He has severe canker sores. He does not have sore throat. No food stuck. He has a lot of gas and bloating and no difference with milk. Worse with pizza or burgers from fast foods. He was constipated 3 days ago. He took a whole bottle of mag citrate and he went and it decreased the pain a little. He feels better after a BM. He thinks the medication made him constipated because normally he is not constipated. He had blood in the stool after he had diarrhea, but he was constipated before that. No pale stools. He had a black stool 2 weeks ago. No weight loss. He is eating less. He was gaining weight and height. He is vaping and using marijuana, but not smoking. He went without MJ for a month and he still had the same pain. Labs 03/28/20 no anemia, neg mono, normal lipase and low K and CO2. nl LFT. Review of Systems Constitutional: fatigue and change in appetite, but no fever, no weight loss and no poor weight gain. Eyes: no vision problems, no eye pain and no discharge. ENT: ear pain, sinus and nasal congestion and mouth ulcers, but no epistaxis and no sore throat . ears are plugged. Cardiovascular: no chest pain. Respiratory: no cough, no wheezing and no shortness of breath . asthma. Gastrointestinal: as noted in HPI. Genitourinary: no increased urinary frequency and no dysuria. Musculoskeletal: no arthralgia, no joint swelling, no back pain and no muscle weakness. Integumentary: no rashes and no skin lesion(s). Neurological: headaches, but no seizures, no dizziness and no fainting . FU 5 times a month. He takes Ibuprofen. Endocrine: no short stature. Hematologic/Lymphatic: no excessive bleeding and no excessive bruising. Psychiatric: anxiety, but no depression and no sleep disturbance . He has anxiety. 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 Normal [facility] CBC AUTO DIFFon 03-29-2020 BASO # 0.0 103/ul Normal 0.0-0.1 [facility] Comment on above: Performed By: #### L GUILLERMO GANT, CMP #### [facility] [address] [place] [address] Tonya Katarina Basophils/100 WBC (Bld) 0.2 % Normal 0.2-2.0 [facility] Comment on above: Performed By: #### L GUILLERMO GANT, CMP #### [facility] [address] [place] [address] Tonya Katarina EO # 0.1 103/ul Normal 0.0-0.7 [facility] Comment on above: Performed By: #### L GUILLERMO GANT, CMP #### [facility] [address] [place] [address] Tonya Katarina Eosinophils/100 WBC (Bld) 1.6 % Normal 0.9-7.0 [facility] Comment on above: Performed By: #### L GUILLERMO GANT, CMP #### [facility] [address] [place] [address] Tonya Katarina Erythrocyte distribution width (RBC) [Ratio] 12.1 % Normal 11.0-15.0 [facility] Comment on above: Performed By: #### L GUILLERMO GANT, CMP #### [facility] [address] [place] [address] Tonay Katarina Hematocrit (Bld) [Volume fraction] 40.5 % Critically low 42.0-54.0 [facility] Comment on above: Performed By: #### L GUILLERMO GANT, CMP #### [facility] [address] [place], [place] [id number] Tonya Katarina Hemoglobin (Bld) [Mass/Vol] 14.5 g/dL Normal 14.0-18.0 [facility] Comment on above: Performed By: #### L GUILLERMO GANT, CMP #### [facility] [address] [address] Tonya Katarina IG # 0.01 10e3/ul Normal 0.00-0.03 [facility] Comment on above: Performed By: #### L IPA GUILLERMO, CMP #### [facility] [address] [address] Tonya Katarina IG % 0.2 % Normal 0.0-0.5 [facility] Comment on above: Performed By: #### L IPA GUILLERMO, CMP #### [facility] [address] [address] Tonya Katarina LYMPH # 1.6 103/ul Normal 1.2-3.8 [facility] Comment on above: Performed By: #### L STALIN GUILLERMO, CMP #### [facility] [address] [place] [address] Tonya Bray Lymphocytes/100 WBC (Bld) 29.7 % Normal 20.5-60.0 [facility] Comment on above: Performed By: #### L STALIN GUILLERMO, CMP #### [facility] [address] [place] [address] Tonya Bray MANUAL DIFF REQ NO Normal [facility] Comment on above: Performed By: #### L STALIN GUILLERMO, CMP #### [facility] [address] [address] Tonyasouth Tiradoen MCH (RBC) [Entitic mass] 28.0 pg Normal 25.9-34.0 [facility] Comment on above: Performed By: #### L IPA GUILLERMO, CMP #### [facility] [address] [address] Tonyasouth Bray MCHC (RBC) [Mass/Vol] 35.8 g/dL Critically high 29.9-35.2 [facility] Comment on above: Performed By: #### L IPA GUILLERMO, CMP #### [facility] [address] [address] Tonya Katarina MCV (RBC) [Entitic vol] 78.3 fL Normal 76.3-90.1 [facility] Comment on above: Performed By: #### L GUILLERMO GANT, CMP #### [facility] [address] [place] [address] Tonya Katarina MONO # 0.4 103/ul Normal 0.3-0.8 [facility] Comment on above: Performed By: #### L GUILLERMO GANT, CMP #### [facility] [address] [place] [address] Tonya Katarina Monocytes/100 WBC (Bld) 7.1 % Normal 1.7-12.0 [facility] Comment on above: Performed By: #### L GUILLERMO GANT, CMP #### [facility] [address] [place] [address] Tonya Katarina NEUT # 3.4 103/ul Normal 1.4-6.5 [facility] Comment on above: Performed By: #### L GUILLERMO GANT, CMP #### [facility] [address] [place] [address] Tonya Katarina Neutrophils/100 WBC (Bld) 61.2 % Normal 43.0-75.0 [facility] Comment on above: Performed By: #### L GUILLERMO GANT, CMP #### [facility] [address] [place] [address] Tonya Katarina Platelet mean volume (Bld) [Entitic vol] 12.0 fL Normal 9.5-13.5 [facility] Comment on above: Performed By: #### L GUILLERMO GANT, CMP #### [facility] [address] [place] [address] Tonya Katarina PLT 147 103/ul Critically low 150-450 [facility] Comment on above: Performed By: #### L GUILLERMO GANT, CMP #### [facility] [address] [place] [address] Tonya Katarina RBC 5.17 106/ul Normal 3.30-5.40 [facility] Comment on above: Performed By: #### L GUILLERMO GANT, CMP #### [facility] [address] [place] [address] Tonya Katarina WBC 5.5 103/ul Normal 4.0-11.0 [facility] Comment on above: Performed By: #### L GUILLERMO GANT, CMP #### [facility] [address] [place], [place] [address] Tonya Bray LIPASEon 03-29-2020 Lipase [Catalytic activity/Vol] 114.0 U/L Normal 23.0-300.0 [facility] Comment on above: Performed By: #### C MP, LIPA ####[facility] [address] [place], [place] [address]Zqpomt Katarina MONOon 03-29-2020 Monocytes (Bld) [#/Vol] Negative Normal NEGATIVE [facility] Comment on above: Performed By: #### M KYLE #### [facility] [address] [place] [address] Tonya Bray PROF 14(COMP METB)on 19 AGE Normal [facility] Comment on above: Performed By: #### C KRIS LIPA ####[facility] [address] [place], [place] [address]Dalagz Katarina Albumin [Mass/Vol] 4.4 g/dL Normal 3.5-5.0 [facility] Comment on above: Performed By: #### C KRIS, LIPA ####[facility] [address] [place], [place] [address]Glmili Katarina Albumin/Globulin [Mass ratio] 1.8 {ratio} Normal [facility] Comment on above: Performed By: #### C MP, LIPA ####[facility] [address] [place], [place] [address]Staczq Katarina ALP [Catalytic activity/Vol] 186 U/L Normal 65-260 [facility] Comment on above: Performed By: #### C MP, LIPA ####[facility] [address] [place], [place] [address]Fnxcwf Katarina ALT [Catalytic activity/Vol] 16 U/L Critically low 21-72 [facility] Comment on above: Performed By: #### C KRIS, LIPA ####[facility] [address] [place], [place] [address]Gerken Katarina Anion gap [Moles/Vol] 18.1 mmol/L Normal [facility] Comment on above: Performed By: #### C KRIS, LIPA ####[facility] [address] [place] [address]Bxnnav Katarina AST [Catalytic activity/Vol] 11 U/L Critically low 17-59 [facility] Comment on above: Performed By: #### C KRIS, LIPA ####[facility] [address] [place], [place] [address]Gerken Katarina Bilirubin [Mass/Vol] 0.6 mg/dL Normal 0.2-1.3 [facility] Comment on above: Performed By: #### C KRIS, LIPA ####[facility] [address] [place], [place] [address]Gerken Katarina Calcium [Mass/Vol] 9.7 mg/dL Normal 8.4-10.2 [facility] Comment on above: Performed By: #### C KRIS, LIPA ####[facility] [address] [place], [place] [address]Gerken Katarina Chloride [Moles/Vol] 104 mmol/L Normal 98-107 [facility] Comment on above: Performed By: #### C KRIS, LIPA ####[facility] [address] [place], [place] [address]Gerken Katarina CO2 [Moles/Vol] 21.0 mmol/L Critically low 22.0-30.0 [facility] Comment on above: Performed By: #### C KRIS, LIPA ####[facility] [address] [place], [place] [address]Gerken Katarina Creatinine [Mass/Vol] 1.12 mg/dL Normal 0.66-1.25 [facility] Comment on above: Performed By: #### C KRIS, LIPA ####[facility] [address] [place], [place] [address]Gerken Katarina EGFR-AF CAMBODIAN Normal >=60 [facility] Comment on above: Performed By: #### C KRIS, LIPA ####[facility] [address] [place], [place] [address]Jfrcgq Katarina EGFR-NON AF CAMBODIAN Normal >=60 [facility] Comment on above: Performed By: #### C KRIS, LIPA ####[facility] [address] [place], [place] [address]Vlglmm Katarina Globulin (S) [Mass/Vol] 2.5 g/dL Normal [facility] Comment on above: Performed By: #### C KRIS, LIPA ####[facility] [address] [place], [place] [address]Padrzx Katarina Glucose [Mass/Vol] 119 mg/dL Critically high 74-106 [facility] Comment on above: Performed By: #### C KRIS, LIPA ####[facility] [address] [place], [place] [address]Mnevtc Katarina Potassium [Moles/Vol] 3.1 mmol/L Critically low 3.4-5.0 [facility] Comment on above: Performed By: #### C KRIS, LIPA ####[facility] [address] [place], [place] [address]Dnqjgc Katarina Protein [Mass/Vol] 6.9 g/dL Normal 6.1-8.2 [facility] Comment on above: Performed By: #### C KRIS LIPA ####[facility] [address] [place] [address]Olfygc Katarina Sodium [Moles/Vol] 140 mmol/L Normal 137-145 [facility] Comment on above: Performed By: #### C KRIS, LIPA ####[facility] [address] [place], [place] [address]Pmuqzf Katarina Urea nitrogen [Mass/Vol] 15.0 mg/dL Normal 6.4-19.3 [facility] Comment on above: Performed By: #### C KRIS LIPA ####[facility] [address] [place], [place] [address]Zmzten Katarina Urea nitrogen/Creatinine [Mass ratio] 13.4 mg/mg Normal [facility] Comment on above: Performed By: #### C KRIS WILFRED ####[facility] [address] [place], [place] [address]Subkiy Katarina XR ABD FLAT UP_PA Andrew 03-29 XR ABD FLAT UP_PA CH EXAM: XR ABD FLAT UP_PA CH HISTORY: UNSPECIFIED ABDOMINAL PAIN COMPARISON: None KV of 03/08/2020 and chest x-ray of 02/09/2020. TECHNIQUE: Single frontal view of the chest as well as upright and supine views of the abdomen are submitted for review. FINDINGS: The heart size is normal. No dense focal consolidation, pneumothorax or pleural effusion is seen. The visualized osseous structures appear unremarkable. Nonspecific bowel gas pattern is seen. No air-filled distended loops of bowel is seen to suggest bowel obstruction. Large volume of stool is seen throughout the colon. No obvious pathologic calcification is seen. No gross pneumoperitoneum is seen. The visualized osseous structures appear unremarkable. IMPRESSION: No evidence for acute abnormality. Large volume of stool seen throughout the colon. Electronically authenticated by: GISSELLE MACK Date: 2020-03-28 23:18 Normal [facility] CBC AUTO DIFFon 03-25-2020 BASO # 0.0 103/ul Normal 0.0-0.1 [facility] Comment on above: Performed By: #### C BC ####[facility] [address] [place], [place] [address]Zkqaxr Katarina Basophils/100 WBC (Bld) 0.4 % Normal 0.2-2.0 [facility] Comment on above: Performed By: #### C BC ####[facility] [address] [place], [place] [address]Gimghs Katarina EO # 0.1 103/ul Normal 0.0-0.7 [facility] Comment on above: Performed By: #### C BC ####[facility] [address] [place], [place] [address]Cmywmt Katarina Eosinophils/100 WBC (Bld) 1.7 % Normal 0.9-7.0 [facility] [facility] Comment on above: Performed By: #### C BC ####[facility] [address] [place], [place] [address]Yqlbgs Katarina Erythrocyte distribution width (RBC) [Ratio] 12.2 % Normal 11.0-15.0 [facility] Comment on above: Performed By: #### C BC ####[facility] Fczulocstp[address] Kat[place]ina Hematocrit (Bld) [Volume fraction] 41.8 % Critically low 42.0-54.0 [facility] Comment on above: Performed By: #### C BC ####[facility] Vnhjkevnvl78[address] [place]ina Hemoglobin (Bld) [Mass/Vol] 14.4 g/dL Normal 14.0-18.0 [facility] Comment on above: Performed By: #### C BC ####[facility] [address] [place] [address] Katarina IG # 0.01 10e3/ul Normal 0.00-0.03 [facility] Comment on above: Performed By: #### C BC ####[facility] [address] [place] [address] Katarina IG % 0.2 % Normal 0.0-0.5 [facility] Comment on above: Performed By: #### C BC ####[facility] [address] [place] [address] Katarina LYMPH # 1.5 103/ul Normal 1.2-3.8 [facility] Comment on above: Performed By: #### C BC ####[facility] [address] [place] [address] Katarina Lymphocytes/100 WBC (Bld) 31.5 % Normal 20.5-60.0 [facility] Comment on above: Performed By: #### C BC ####[facility] [address] [place] [address] Katarina MANUAL DIFF REQ NO Normal [facility] Comment on above: Performed By: #### C BC ####[facility] [address] [place] [address] Katarina MCH (RBC) [Entitic mass] 27.8 pg Normal 25.9-34.0 [facility] Comment on above: Performed By: #### C BC ####[facility] [address] [place] [id number] Bray MCHC (RBC) [Mass/Vol] 34.4 g/dL Normal 29.9-35.2 [facility] Comment on above: Performed By: #### C BC ####[facility] [address] [place], [place] [address]Tonya Bray MCV (RBC) [Entitic vol] 80.7 fL Normal 76.3-90.1 [facility] Comment on above: Performed By: #### C BC ####[facility] [address] [place], [place] [id number] Bray MONO # 0.4 103/ul Normal 0.3-0.8 [facility] Comment on above: Performed By: #### C BC ####[facility] [address] [place], [place] [address]Tonya Bray Monocytes/100 WBC (Bld) 8.0 % Normal 1.7-12.0 [facility] Comment on above: Performed By: #### C BC ####[facility] [address] [place], [place] [address]Tonya Bray NEUT # 2.8 103/ul Normal 1.4-6.5 [facility] Comment on above: Performed By: #### C BC ####[facility] [address] [place], [place] [address]Tonya Bray Neutrophils/100 WBC (Bld) 58.2 % Normal 43.0-75.0 [facility] Comment on above: Performed By: #### C BC ####[facility] [address] [place], [place] [address] Bray Platelet mean volume (Bld) [Entitic vol] 12.4 fL Normal 9.5-13.5 [facility] Comment on above: Performed By: #### C BC ####[facility] [address] [place], [place] [address]Gerken Katarina PLT 153 103/ul Normal 150-450 [facility] Comment on above: Performed By: #### C BC ####[facility] [address] [place], [place] [address]Orfvji Karen RBC 5.18 106/ul Normal 3.30-5.40 [facility] Comment on above: Performed By: #### C BC ####[facility] Ox[address] [place], [place] [address]Yyjpuf Karen WBC 4.7 103/ul Normal 4.0-11.0 [facility] Comment on above: Performed By: #### C BC ####[facility] [address] [place], [place] [address] ABD/PELV W CONon 03-25-19 CT ABD/PELV W CON EXAMINATION: CT ABD/ PELV W CON 03/25/2020 COMPARISON STUDY: CT of the abdomen and pelvis with contrast 05/27/2016. HISTORY: UNSPECIFIED ABDOMINAL PAIN TECHNIQUE: 3 mm sections were obtained from the lung bases through the pubic symphysis following the administration of 100 mL of Omnipaque 300. Coronal and sagittal reconstructed images were obtained. Dose reduction techniques were achieved by using automated exposure control and/or adjustment of mA and/or kV according to patient size and/or use of iterative reconstruction technique. FINDINGS: CT abdomen: Heart size is normal. Lung bases are clear. Liver, gallbladder, spleen, pancreas, adrenal glands, and kidneys demonstrate no acute abnormality. On coronal imaging the right hepatic lobe measures 16.4 cm superior to inferior. The spleen measures 14.8 cm superior to inferior, unchanged. Aorta demonstrates normal caliber. Bowel pattern is nonobstructive. There is an intracortical midpole left renal cyst identified laterally measuring [address] pelvis: Urinary bladder, prostate, and seminal vesicles appear otherwise unremarkable. Cecal tip is noted within the right hemipelvis. Negative for appendicitis, diverticulitis, or acute inflammatory bowel disease. No significantly enlarged adenopathy or ascites noted otherwise. No acute osseous abnormality noted. IMPRESSION: 1. Mild stable splenomegaly. Subcentimeter left renal cyst. 2. No acute intra-abdominal/intrapelvi c process. Electronically authenticated by: CAITLYN CAPELLAN Date: 2020-03-25 13:17 Normal [facility] PROF CHEM 8 (BAS METB)on Anion gap [Moles/Vol] 9.7 mmol/L Normal [facility] Comment on above: Performed By: #### L GUILLERMO GANT, CMP #### [facility] [address] [place] [address] Tonya Katarina Calcium [Mass/Vol] 9.3 mg/dL Normal 8.4-10.2 [facility] Comment on above: Performed By: #### L GUILLERMO GANT, CMP #### [facility] [address] [place] [address] Tonya Katarina Chloride [Moles/Vol] 107 mmol/L Normal 98-107 [facility] Comment on above: Performed By: #### L GUILLERMO GANT, CMP #### [facility] [address] [place] [address] Tonya Katarina CO2 [Moles/Vol] 28.4 mmol/L Normal 22.0-30.0 [facility] Comment on above: Performed By: #### L GUILLERMO GANT, CMP #### [facility] [address] [place] [address] Tonya Katarina Creatinine [Mass/Vol] 1.01 mg/dL Normal 0.66-1.25 [facility] Comment on above: Performed By: #### L GUILLERMO GANT, CMP #### [facility] [address] [place] [address] Tonya Katarina Glucose [Mass/Vol] 92 mg/dL Normal 74-106 [facility] Comment on above: Performed By: #### L GUILLERMO GANT, CMP #### [facility] [address] [place] [address] Tonya Katarina Potassium [Moles/Vol] 4.1 mmol/L Normal 3.4-5.0 [facility] Comment on above: Performed By: #### L GUILLERMO GANT, CMP #### [facility] [address] [place] [address] Tonya Katarina Sodium [Moles/Vol] 141 mmol/L Normal 137-145 [facility] Comment on above: Performed By: #### L GUILLERMO GANT, CMP #### [facility] [address] [place] [address] Tonya Katarina Urea nitrogen [Mass/Vol] 15.0 mg/dL Normal 6.4-19.3 [facility] Comment on above: Performed By: #### L GUILLERMO GANT, CMP #### [facility] [address] [place] [address] Tonya Katarina Urea nitrogen/Creatinine [Mass ratio] 14.9 mg/mg Normal [facility] Comment on above: Performed By: #### L GUILLERMO GANT, CMP #### [facility] [address] [place] [address] Tonya Katarina AMYLASEon 02-26-2020 Amylase [Catalytic activity/Vol] 77 U/L Normal 31-110 [facility] Comment on above: Performed By: #### L GUILLERMO GANT, CMP #### [facility] [address] [place] [address] Tonya Katarina CBC AUTO DIFFon 02-26-2020 BASO # 0.0 103/ul Normal 0.0-0.1 [facility] Comment on above: Performed By: #### L GUILLERMO GANT, CMP #### [facility] [address] [place] [address] Tonya Katarina Basophils/100 WBC (Bld) 0.2 % Normal 0.2-2.0 [facility] Comment on above: Performed By: #### L GUILLERMO GANT, CMP #### [facility] [address] [place] [address] Tonya Katarina EO # 0.1 103/ul Normal 0.0-0.7 [facility] Comment on above: Performed By: #### L GUILLERMO GANT, CMP #### [facility] [address] [place] [address] Tonya Katarina Eosinophils/100 WBC (Bld) 1.4 % Normal 0.9-7.0 [facility] Comment on above: Performed By: #### L GUILLERMO GANT, CMP #### [facility] [address] [place] [address] Tonya Katarina Erythrocyte distribution width (RBC) [Ratio] 12.2 % Normal 11.0-15.0 [facility] Comment on above: Performed By: #### L GUILLERMO GANT, CMP #### [facility] [address] [place] [address] [place] Bray Hematocrit (Bld) [Volume fraction] 41.9 % Critically low 42.0-54.0 [facility] Comment on above: Performed By: #### L GUILLERMO GANT, CMP #### [facility] [address] [place] [address] Tonya Katarina Hemoglobin (Bld) [Mass/Vol] 14.4 g/dL Normal 14.0-18.0 [facility] Comment on above: Performed By: #### L GUILLREMO GANT, CMP #### [facility] [address] [place] [address] Tonya Katarina IG # 0.05 10e3/ul Critically high 0.00-0.03 [facility] Comment on above: Performed By: #### L GUILLERMO GANT, CMP #### [facility] [address] [place] [address] Tonya Katarina IG % 1.0 % Critically high 0.0-0.5 [facility] Comment on above: Performed By: #### L GUILLERMO GANT, CMP #### [facility] [address] [place] [address] [place] Bray LYMPH # 1.3 103/ul Normal 1.2-3.8 [facility] Comment on above: Performed By: #### L GUILLERMO GANT, CMP #### [facility] [address] [place] [address] Tonya Bray Lymphocytes/100 WBC (Bld) 27.0 % Normal 20.5-60.0 [facility] Comment on above: Performed By: #### L GUILLERMO GANT, CMP #### [facility] [address] [place] [address] Tonya Bray MANUAL DIFF REQ NO Normal [facility] Comment on above: Performed By: #### L GUILLERMO GANT, CMP #### [facility] [address] [place] [address] Tonya Katarina MCH (RBC) [Entitic mass] 27.6 pg Normal 25.9-34.0 [facility] Comment on above: Performed By: #### L GUILLERMO GANT, CMP #### [facility] [address] [place] [address] Tonya Bary MCHC (RBC) [Mass/Vol] 34.4 g/dL Normal 29.9-35.2 [facility] Comment on above: Performed By: #### L GUILLERMO GANT, CMP #### [facility] [address] [place] [address] [place] Bray MCV (RBC) [Entitic vol] 80.3 fL Normal 76.3-90.1 [facility] Comment on above: Performed By: #### L GUILLERMO GANT, CMP #### [facility] [address] [place] [address] Tonya Bray MONO # 0.3 103/ul Normal 0.3-0.8 [facility] Comment on above: Performed By: #### L GUILLERMO GANT, CMP #### [facility] [address] [place] [address] Tonya Katarina Monocytes/100 WBC (Bld) 6.5 % Normal 1.7-12.0 [facility] Comment on above: Performed By: #### L GUILLERMO GANT, CMP #### [facility] [address] [place] [address] Tonya Bray NEUT # 3.2 103/ul Normal 1.4-6.5 [facility] Comment on above: Performed By: #### L GUILLERMO GANT, CMP #### [facility] [address] [place] [address] Tonya Katarina Neutrophils/100 WBC (Bld) 63.9 % Normal 43.0-75.0 [facility] Comment on above: Performed By: #### L GUILLERMO GANT, CMP #### [facility] [address] [place] [address] [place] Bray Platelet mean volume (Bld) [Entitic vol] 12.1 fL Normal 9.5-13.5 [facility] Comment on above: Performed By: #### L GUILLERMO GANT, CMP #### [facility] [address] [place] [address] [place]outh Tir[place]en PLT 168 103/ul Normal 150-450 [facility] Comment on above: Performed By: #### L GUILLERMO GANT, CMP #### [facility] [address] [place], [place] [address] Tonya Katarina RBC 5.22 106/ul Normal 3.30-5.40 [facility] Comment on above: Performed By: #### L GUILLERMO GANT, CMP #### [facility] [address] [place] [address] Tonya Katarina WBC 4.9 103/ul Normal 4.0-11.0 [facility] Comment on above: Performed By: #### L GUILLERMO GANT, CMP #### [facility] [address] [place] [address] Tonya Bray LIPASEon 02-26-2020 Lipase [Catalytic activity/Vol] 78.0 U/L Normal 23.0-300.0 [facility] Comment on above: Performed By: #### L GUILLERMO GANT, CMP #### [facility] [address] [place] [address] Tonya Bray PROF 14(COMP METB)on 020 AGE Normal [facility] Comment on above: Performed By: #### L GUILLERMO GANT, CMP #### [facility] [address] [place] [address] [place] Bray Albumin [Mass/Vol] 4.1 g/dL Normal 3.5-5.0 [facility] Comment on above: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 Plan. A maximum total of 3 doses in a 24 hours period of time. Hold at a 90 degree angle, press activation level. Wait at least 2-3 seconds after the injection before removal of the J-tip. A small amount of blood may appear at the site and is normal. Onset of action 1-3 min. Duration of local anesthetic effect: 15-20 min. Start: 12-20-2018 HIV screen HIV screen [place], [place] Start: 12-20-2018 HPV vaccine (1 - Mal e 3-dose series) HPV vaccine (1 - Male 3-dose series) [place], [place] Start: 11-08-2018 Influenza vaccination Flu vaccine (# 1) [place] Start: 12-20-2016 Varicella Vaccine (1 of 2 - 13+ 2-dose series) Varicella Vaccine (1 of 2 - 13+ 2-dose series) [place] Start: 12-20-2014 HPV vaccine (1 - Mal e 2-dose series) HPV vaccine (1 - Male 2-dose series) [place] Start: 12-20-2014 Meningococcal (ACWY) Vaccine (1 - 2-dose series) Meningococcal (ACWY) Vaccine (1 - 2-dose series) [place] Start: 12-20-2010 DTaP/Tdap/Td vaccine (1 - Tdap) DTaP/Tdap/Td vaccine (1 - Tdap) [place] Start: 12-20-2004 Hepatitis A vaccine (1 of 2 - 2-dose series) Hepatitis A vaccine (1 of 2 - 2-dose series) [place] Start: 12-20-2004 Measles,Mumps,Rubell a (MMR) vaccine (1 of 2 - Standard series) Measles,Mumps,Rubella (MMR) vaccine (1 of 2 - Standard series) [place] Start: 02-20-2004 Polio vaccine 0-18 ( 1 of 3 - 4-dose series) Polio vaccine 0-18 (1 of 3 - 4-dose series) [place] Start: 2003 Hepatitis B Vaccine (1 of 3 - 3-dose primary series) Hepatitis B Vaccine (1 of 3 - 3-dose primary series) [place] Initiate Oxygen Ther apy Protocol Initiate Oxygen Therapy Protocol Respiratory Care Routine Daily until discontinued starting 12/25/2018 [facility] Comment on above: Daily until disconti nued starting 12/25/2018 Phase I & II - meter ed glucose Phase I & II - metered glucose Point of Care Testing Routine As Needed until discontinued starting 12/25/2018 [facility] Comment on above: As Needed until disc ontinued starting 12/25/2018 Surgical Pathology Surgical Path ology Lab Routine ONE TIME for 1 Occurrences starting 12/25/2018 [facility] [place] Comment on above: ONE TIME for 1 Occur rences starting 12/25/2018 Immunizations Immunization Date Immunization Notes Care Provider Fa quentin 08-14-2020 Pfizer-BioNTech COVI D-19 Vacc 30 MCG/0.3ML Intramuscular Suspension Nitish Cedeno Work Phone: OY-Vavguxagwh-Mvac [facility] Work Phone: 07-24-2020 Pfizer-BioNTech COVI D-19 Vacc 30 MCG/0.3ML Intramuscular Suspension Nitish M Deneen Work Phone: PW-Hcmbfsxkpq-Msdm er [facility] Work Phone: 07-02-2017 hepatitis A vaccine, pediatric/adolescent dosage, 2 dose schedule Nitish Cedeno Work Phone: CY-Phupqvhqtj-Pjer er [facility] Work Phone: 07-02-2017 Human Papillomavirus 9-valent vaccine Nitish Chu Deneen Work Phone: ND-Bsfuuoacek-Orli er [facility] Work Phone: 12-26-2016 hepatitis A vaccine, pediatric/adolescent dosage, 2 dose schedule Nitish Chu Deneen Work Phone: ON-Nynxnsdzkq-Bvfs er [facility] Work Phone: 12-26-2016 Human Papillomavirus 9-valent vaccine Nitish Chu Deneen Work Phone: DV-Awqvmrfqjw-Poej [facility] Work Phone: 11-21-2016 meningococcal oligosaccharide (groups A, C, Y and W-135) diphtheria toxoid conjugate vaccine (MCV4O) Nitish Cedeno Work Phone: SQ-Cagnrmqnel-Fjls er [facility] Work Phone: 11-21-2016 tetanus toxoid, redu kervin diphtheria toxoid, and acellular pertussis vaccine, adsorbed Nitish Cedeno Work Phone: XD-Hdboaipmbm-Ncdy [facility] Work Phone: 02-15-2010 varicella virus vaccine Ayan Cedeno Work Phone: [facility] Work Phone: 11-16-2009 Diphtheria, tetanus toxoids and acellular pertussis vaccine, and poliovirus vaccine, inactivated Nitish Cedeno Work Phone: [facility] Work Phone: 11-16-2009 measles, mumps, rube lla, and varicella virus vaccine Nitish Cedeno Work Phone: [facility] Work Phone: 07-23-2007 diphtheria, tetanus toxoids and acellular pertussis vaccine Nitish Cedeno Work Phone: [facility] Work Phone: 07-23-2007 pneumococcal conjuga te vaccine, 7 valent Nitish Cedeno Work Phone: [facility] Work Phone: 05-17-2005 DTaP-hepatitis B and poliovirus vaccine Nitish Cedeno Work Phone: [facility] Work Phone: 05-17-2005 haemophilus influenz ae type b vaccine, PRP-T conjugate Nitish Cedeno Work Phone: YK-Vpyqwhxavy-Vkta er [facility] Work Phone: 05-17-2005 measles, mumps and rubella virus vaccine Nitish Cedeno Work Phone: HF-Rolttojtkv-Suaa er [facility] Work Phone: 05-17-2005 pneumococcal conjuga te vaccine, 7 valent Nitish M Hoy Work Phone: UU-Weamsimwma-Gore [facility] Work Phone: 05-22-2004 DTaP-hepatitis B and poliovirus vaccine Nitish Sage Hoy Work Phone: ZI-Oyphalfzln-Zwij er [facility] Work Phone: 05-22-2004 haemophilus influenz ae type b vaccine, PRP-T conjugate Nitish Sage Hoy Work Phone: BT-Rxlcycaksy-Ousq er [facility] Work Phone: 05-22-2004 pneumococcal conjuga te vaccine, 7 valent Nitish M Hoy Work Phone: QS-Xovgukprqv-Hebd er [facility] Work Phone: 03-20-2004 DTaP-hepatitis B and poliovirus vaccine Nitish Cedeno Work Phone: HR-Wsacygshxv-Biyp er [facility] Work Phone: 03-20-2004 haemophilus influenz ae type b vaccine, PRP-T conjugate Nitish Cedeno Work Phone: DS-Mnuisavdji-Chpb er [place] [facility] Work Phone: 03-20-2004 pneumococcal conjuga te vaccine, 7 valent Nitish M Hoy Work Phone: QW-Qnkjiziqiw-Kxkd er [facility] Work Phone: 2003 hepatitis B vaccine, pediatric or pediatric/adolescent dosage Nitish Cedeno Work Phone: VI-Knpowwlkdg-Cqom er [facility] Work Phone: Payers Date Payer Category Payer Unknown [facility] xxxxxxxxxxxx 2017-Present [phone] [address] [place] [address] xxxxxxxxxxxx [id number] 1959 Unknown [id number] 1956 Unknown [id number] 1956 Unknown [id number] 1956 Unknown [id number] 1956 Unknown [id number] 1956 Unknown [id number] 1956 Unknown [id number] 1956 Unknown [id number] 1956 Unknown [id number] 1956 Unknown [id number] 1956 Unknown [id number] 1956 Unknown [id number] Unknown Social History Date Type Detail Facility Start: 12-08-2018 End: 12-25-2018 Tobacco smoking status NHIS Never smoker [place] Start: 12-25-2018 Alcohol intake [place] Start: 12-24-2018 History SDOH Alcohol Frequency 1 [place] Sex Assigned At Not on file [place] Secondhand smoke exposure Secondhand smoke exposure TO-Dsaxfddpwk-Tccelq [facility] Work Phone: Tobacco smoking consumption unknown [facility] Functional Status Date Assessment Result Facility NEGATED: Highlighted row Functional performance Functional status health issues are not documented Disease Dereck Milner Work Phone: Mental Status Date Assessment Result Facility NEGATED: Highlighted row Cognitive function [Interpretation] Cognitive status health issues are not documented Disease Dereck Milner Work Phone: Clinical Notes 03-08-2020 to 07-25-2021 Note Date & Type Note Facility 07-25-2021 Evaluation note Encounter Date Diagnosis Assessment Notes July, Irritable bowel syndrome with diarrhea (ICD-10 - K58.0) July, GERD (gastroesophag eal reflux disease) (ICD-10 - K21.9) CONTINUE PANTOPRAZOLE 40 MG DAILY PRN July, Superficial gastritis without hemorrhage, unspecified chronicity (ICD-10 - K29.30) [employer] [employer] Other 02-14-2022 Evaluation note* Encounter Date Diagnosis Assessment Notes Treatment Notes Treatment Clinical Notes Apr, Irritable bowel syndrome with diarrhea (ICD-10 - K58.0) CONTINUE HYOSCYAMINE WITHOUT CHANGE Apr, 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 LEONARD [employer] [employer] Other 07-26-2021 NoteHistory of Present Illness: History Present Illness: Reason for surgery: 14 y M here for EGD Colon for the c/c of abdominal pain and canker sores and weight loss and hx of colitis HPI: 14 y M here for EGD Colon for the c/c of abdominal pain and canker sores and weight loss and hx of colitis. allergy to penicillin .Circ and neck surgery Allergies: Allergies: penicillin: Rash Home Medication Review: Home Medications Reviewed: yes Impression/Procedure: Impression and Planned Procedure: EGD Colon ERAS (Enhanced Recovery After Surgery): ERAS Patient: yes CPM/PAT Utilization: yes Immunonutrition Recovery Drink Utilization: yes Carbohydrate Supplement Drink Utilization: yes Review of Systems: Review of Systems: Constitutional: NEGATIVE: Fever Eyes: NEGATIVE: Redness ENMT: NEGATIVE: Nasal Discharge, Nasal Congestion Respiratory: NEGATIVE: Dry Cough, Productive Cough Cardiac: NEGATIVE: Chest Pain Gastrointestinal: POSITIVE: Abdominal Pain Musculoskeletal: NEGATIVE: Decreased ROM Neurological: NEGATIVE: Seizures Vital Signs: Temperature C: 36.9 degrees C Temperature F: 98.4 degrees F Heart Rate: 88 beats per minute Respiratory Rate: 18 breath per minute Blood Pressure Systolic: 122 mm/Hg Blood Pressure Diastolic: 61 mm/Hg Physical Exam by System: Constitutional: Alert NAD WDWN Eyes: Sclera clear ENMT: No congestion Head/Neck: No thyromegaly or lymphadenopathy Respiratory/Thorax: Clear no distress Cardiovascular: nl Gastrointestinal: soft no organomegaly or masses non tender Musculoskeletal: grossly normal Neurological: AO x3 Skin: nl Consent: COVID-19 Consent: COVID-19 Risk ConsentSurgeon has reviewed huff risks related to the risk of jeffery COVID-19 and if they contract COVID-19 what the risks are. Electronic Signatures: Sheree Leonard) (Signed 02-Oct-2020 11:10) Authored: History of Present Illness, Allergies, Home Medication Review, Impression/Procedure, ERAS, Review of Systems, Physical Exam, Consent, Note Completion Last Updated: 02-Oct-2020 11:10 by Sheree Leonard)[facility]06-08-2021 History of Present illness [id number] y m here for follow up of epigastric abdominal pain that is not responsive to acid suppression, canker sores and lower abdominal pain. Family hx of stomach infection. Pantoprazole and Miralax. EGDColon and disacchs 08/15/20 showed eosinophilic gastritis and normal esophagus, small intestine and patch active proctitis. No H pylori. Normal disacchs. We need to go through meds and see what helps. He is on cyproheptadine and dicyclomine. Whey IgG 42 rest negative. He feels better on the steroids.He stopped the prednisone 2 days ago. his stomach makes noise. He is staying away from dairy. He had ice cream while he was on the steroids. He had rice and salmon and broccoli and it did nto bother him. He lost weight. He can't eat when he feels bad. He ate better on the steroids. The pain is not as bad. It is everyday. Decreasing the milk helped a lot. He is not really strictly milk free. It can be lower or epigastric. CT did not show any bowel thickening. No reflux symptoms pantoprazole daily. no eosinophilia. no oral sores now or sore throat. He feels bloated some times. Claudia pain does nothave to be after eating it could be before. It lasts from a few hours to the whole day. BM's are 3 times per day. Sometimes he tries to go 3 times a day. Sometimes her tries to go more and because hefeels better. Less burning after the steroids. He has had diarrhea a couple of times this month. Hegot vaccined for covid and no Covid and no association with the vaccine.[facility] Work Phone: [phone]) 294-858806-08-2021 History of Present illness [id number] y m here for follow up of epigastric abdominal pain that is not responsive to acid suppression, canker sores and lower abdominal pain. Family hx of stomach infection. Pantoprazole and MiraLAX. 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 No H pylori. Normal disacchs. Whey IgG 42 rest of the food testing was negative. He feels better off of dairy but still has the pain. He feels better on the steroids. He stopped the prednisone 2 days ago. His stomach makes noise. He is staying away from dairy. He had ice cream while he was on the steroids and did ok. He had rice and salmon and broccoli with cheese and it did not bother him. He lost weight. He can't eat when he feels bad. He ate better on the steroids. The pain is not as bad. It is everyday. Decreasing the milk helped a lot. He is not really strictly milk free. It can be lower abdominal pain or epigastric. CT did not show any bowel thickening. No reflux symptoms. Pantoprazole daily. No eosinophilia. No oral sores now or sore throat. He feels bloated some times. The pain does not have to be after eating. The pain could be before eating. It lasts from a few hours to the whole day. BM's are 3 times per day. He tries to go 3 times a day at least. Sometimes her tries to go more often because he feels better. Less burning after the steroids. He hashad diarrhea a couple of times this month. He got vaccinated for Covid. No history of Covid and no association of the pain with the vaccine.[facility] Work Phone: [phone] 586-524206-08-2021 History of Present illness [id number] y m here for follow up of epigastric abdominal pain that is not responsive to acid suppression, canker sores and lower abdominal pain. Family hx of stomach infection. Pantoprazole and MiraLAX. 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 No H pylori. Normal disacchs. Whey IgG 42 rest of the food testing was negative. He feels better off of dairy but still has the pain. He feels better on the steroids. He stopped the prednisone 2 days ago. His stomach makes noise. He is staying away from dairy. He had ice cream while he was on the steroids and did ok. He had rice and salmon and broccoli with cheese and it did not bother him. He lost weight. He can't eat when he feels bad. He ate better on the steroids. The pain is not as bad. It is everyday. Decreasing the milk helped a lot. He is not really strictly milk free. It can be lower abdominal pain or epigastric. CT did not show any bowel thickening. No reflux symptoms. Pantoprazole daily. No eosinophilia. No oral sores now or sore throat. He feels bloated some times. The pain does not have to be after eating. The pain could be before eating. It lasts from a few hours to the whole day. BM's are 3 times per day. He tries to go 3 times a day at least. Sometimes her tries to go more often because he feels better. Less burning after the steroids. He hashad diarrhea a couple of times this month. He got vaccinated for Covid. No history of Covid and no association of the pain with the vaccine.[employer] Work Phone: [phone] 643-620202-22-2021 NoteHistory of Present Illness: History Present Illness: Reason for surgery: 14 y M here for EGD Colon and disacchs for canker sore reflux and abdominal pain HPI: 14 y M here for EGD Colon and disacchs for canker sore reflux and abdominal pain circ and neck surgery. PENICILLIN allergy. nl labs Allergies: Allergies: penicillin: Rash Home Medication Review: Home Medications Reviewed: yes Impression/Procedure: Impression and Planned Procedure: EGD Colon and disacchs ERAS (Enhanced Recovery After Surgery): ERAS Patient: yes CPM/PAT Utilization: yes Immunonutrition Recovery Drink Utilization: yes Carbohydrate Supplement Drink Utilization: yes Review of Systems: Review of Systems: Constitutional: NEGATIVE: Fever Eyes: NEGATIVE: Redness ENMT: NEGATIVE: Nasal Discharge, Nasal Congestion Respiratory: NEGATIVE: Dry Cough, Productive Cough Cardiac: NEGATIVE: Chest Pain Gastrointestinal: POSITIVE: Abdominal Pain Musculoskeletal: NEGATIVE: Decreased ROM Neurological: NEGATIVE: Seizures Hematologic/Lymph: NEGATIVE: Anemia Vital Signs: Temperature C: 36.7 degrees C Temperature F: 98 degrees F Heart Rate: 65 beats per minute Respiratory Rate: 20 breath per minute Blood Pressure Systolic: 124 mm/Hg Blood Pressure Diastolic: 65 mm/Hg Physical Exam by System: Constitutional: Alert NAD WDWN Eyes: Sclera clear ENMT: No rhinorrhea or congestion Head/Neck: No thyromegaly or lymphadenopathy Respiratory/Thorax: Clear no distress Cardiovascular: nl Gastrointestinal: soft no organomegaly or masses non tender Musculoskeletal: grossly normal Neurological: AO x3 Skin: nl Consent: COVID-19 Consent: COVID-19 Risk ConsentSurgeon has reviewed huff risks related to the risk of jeffery COVID-19 and if they contract COVID-19 what the risks are. Signatures/Attestation: Note Completion: Attending Provider Inpatient Certification StatementObservation patient/other outpatient visits Electronic Signatures: Sheree Leonard) (Signed 01-May-2020 11:34) Authored: History of Present Illness, Allergies, Home Medication Review, Impression/Procedure, ERAS, Review of Systems, Physical Exam, Consent, Note Completion Last Updated: 01-May-2020 11:34 by Sheree Leonard)[facility]12-30-2020 NotePROCEDURE: XR GI UPPER AIR KUB DUAL CONTRAST, XR CINERADIOGRAPHY COMPARISON: None. HISTORY: Gastritis TECHNIQUE: An air contrast upper gastrointestinal series was performed in the usual manner. Standard level fluoroscopic mode of operation utilized. FINDINGS: ESOPHAGUS:Normal. No visible obstruction, dilatation, reflux or hernia STOMACH: Normal. No obstruction, mass, or ulceration. Normal motility. DUODENUM:Normal. No ulceration or diverticulum. OTHER: Negative. IMPRESSION: Normal exam. No evidence of gastritis Electronically authenticated by: JESSE FRANKLIN Date: 2020-03-08 14:33[facility]12-30-2020 NotePROCEDURE: XR GI UPPER AIR KUB DUAL CONTRAST, XR CINERADIOGRAPHY COMPARISON: None. HISTORY: Gastritis TECHNIQUE: An air contrast upper gastrointestinal series was performed in the usual manner. Standard level fluoroscopic mode of operation utilized. FINDINGS: ESOPHAGUS:Normal. No visible obstruction, dilatation, reflux or hernia STOMACH: Normal. No obstruction, mass, or ulceration. Normal motility. DUODENUM:Normal. No ulceration or diverticulum. OTHER: Negative. IMPRESSION: Normal exam. No evidence of gastritis Electronically authenticated by: JESSE FRANKLIN Date: 2020-03-08 14:33[facility] Center[facility] noteNo InformationNortLehigh [facility] [address] [employer] Other Hispnms general Narrative - Reported* Type Description Date Medical History GERD Medical History IBS [employer] Other Hiswaey general Narrative - Reported* Type Description Date Medical History GERD Medical History IBS Surgical History Neck Surgery [facility] [employer] Other History of Present illness Narrative* PATIENT WAS A NO SHOW FOR VISIT; NOTE PREPARED IN PREPARATION OF ANTICIPATED VISIT * ALEXANDR BRANCH is a 14 year-old boy who was referred to the [facility] by Dr. 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 * 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 and patchy colitis protitis * no eosinophils in esophagus * has been treated with pantoprazole and oral steroid 20mg per day x 30 days script, (not clear what planned daily dose was) with a planned course with improved symptoms, less pain * has eliminated dairy --not strictly with improvement in symptoms * seen in ER for planned referral for worsening abodminal pain September 06 * did not admit * KUB with stool ball associated with worst site of pain * ESR/CRP normal * given fleets enema and home on miralax/dulcolax clean out * ROS: * positive canker sores * positive weight loss: eats less when he has pain * listed Penicilin allergy: * milk: * egg: * Atopic Comorbidities: * eczema: * rhinitis: * asthma: * food allergy: * drug allergy: * hives: * snoring: [facility] Work Phone: Summary Purpose Family History Grandmother Name Dates Details Family history of Diverticul itis(562.11, K57.92) Status:Active Family history of kidney sto geena(V18.69, Z84.1) Status:Active Family history of rheumatoid arthritis(V17.7, Z82.61) Status:Active Family history of migraine h eadaches(V17.2, Z82.0) Status:Active Family history of gastric ul cer(V18.59, Z83.79) Status:Active Family history of colonic di verticulitis(V18.59, Z83.79) Status:Active aunt Name Dates Details Family history of Infection of stomach Status:Active aunt Name Dates Details Family history of asthma(V17 .5, Z82.5) Status:Active great grandfather Name Dates Details Family history of Hiatal her francia(553.3, K44.9) Status:Active Family history of kidney sto geena(V18.69, Z84.1) Status:Active Father Name Dates Details Family history of gastroesop hageal reflux disease(V18.59, Z83.79) Status:Active Family history of atrial fib rillation(V17.49, Z82.49) Status:Active Family history of Penicillin allergy(V14.0, Z88.0) Status:Active Sister Name Dates Details Family history of migraine h eadaches(V17.2, Z82.0) Status:Active Unknown Family Member Name Dates Details Hiatal hernia: Paternal Grea t Grandfather Status:Active Family history of gastroesop hageal reflux disease: Father(V18.59, Z83.79) Status:Active Diverticulitis: Paternal Gra ndmother Status:Active Family history of kidney sto geena: Paternal Grandmother, Paternal Great Grandfather(V18.69, Z84.1) Status:Active Family history of asthma: Pa ternal Aunt(V17.5, Z82.5) Status:Active Family history of rheumatoid arthritis: Paternal Grandmother(V17.7, Z82.61) Status:Active Family history of migraine h eadaches: Paternal Grandmother, Sister(V17.2, Z82.0) Status:Active Family history of gastric ul cer: Paternal Grandmother(V18.59, Z83.79) Status:Active Infection of stomach: Matern al Aunt Status:Active Family history of colonic di verticulitis: Paternal Grandmother(V18.59, Z83.79) Status:Active Family history of atrial fib rillation: Father(V17.49, Z82.49) Status:Active Penicillin allergy: Father Status:Active Unknown Family Member Name Dates Details Hiatal hernia: Paternal Grea t Grandfather Status:Active Family history of gastroesop hageal reflux disease: Father(V18.59, Z83.79) Status:Active Diverticulitis: Paternal Gra ndmother Status:Active Family history of kidney sto geena: Paternal Grandmother, Paternal Great Grandfather(V18.69, Z84.1) Status:Active Family history of asthma: Pa ternal Aunt(V17.5, Z82.5) Status:Active Family history of rheumatoid arthritis: Paternal Grandmother(V17.7, Z82.61) Status:Active Family history of migraine h eadaches: Paternal Grandmother, Sister(V17.2, Z82.0) Status:Active Family history of gastric ul cer: Paternal Grandmother(V18.59, Z83.79) Status:Active Infection of stomach: Matern al Aunt Status:Active Family history of colonic di verticulitis: Paternal Grandmother(V18.59, Z83.79) Status:Active Family history of atrial fib rillation: Father(V17.49, Z82.49) Status:Active Penicillin allergy: Father Status:Active Unknown Family Member Name Dates Details Hiatal hernia: Paternal Grea t Grandfather Status:Active Family history of gastroesop hageal reflux disease: Father(V18.59, Z83.79) Status:Active Diverticulitis: Paternal Gra ndmother Status:Active Family history of kidney sto geena: Paternal Grandmother, Paternal Great Grandfather(V18.69, Z84.1) Status:Active Family history of asthma: Pa ternal Aunt(V17.5, Z82.5) Status:Active Family history of rheumatoid arthritis: Paternal Grandmother(V17.7, Z82.61) Status:Active Family history of migraine h eadaches: Paternal Grandmother, Sister(V17.2, Z82.0) Status:Active Penicillin allergy: Father Status:Active Family history of atrial fib rillation: Father(V17.49, Z82.49) Status:Active Family history of colonic di verticulitis: Paternal Grandmother(V18.59, Z83.79) Status:Active Infection of stomach: Matern al Aunt Status:Active Family history of gastric ul cer: Paternal Grandmother(V18.59, Z83.79) Status:Active Unknown Family Member Name Dates Details Hiatal hernia: Paternal Grea t Grandfather Status:Active Family history of gastroesop hageal reflux disease: Father(V18.59, Z83.79) Status:Active Diverticulitis: Paternal Gra ndmother Status:Active Family history of kidney sto geena: Paternal Grandmother, Paternal Great Grandfather(V18.69, Z84.1) Status:Active Family history of asthma: Pa ternal Aunt(V17.5, Z82.5) Status:Active Family history of rheumatoid arthritis: Paternal Grandmother(V17.7, Z82.61) Status:Active Family history of migraine h eadaches: Paternal Grandmother, Sister(V17.2, Z82.0) Status:Active Family history of gastric ul cer: Paternal Grandmother(V18.59, Z83.79) Status:Active Infection of stomach: Matern al Aunt Status:Active Family history of colonic di verticulitis: Paternal Grandmother(V18.59, Z83.79) Status:Active Family history of atrial fib rillation: Father(V17.49, Z82.49) Status:Active Penicillin allergy: Father Status:Active Unknown Family Member Name Dates Details Hiatal hernia: Paternal Grea t Grandfather Status:Active Family history of gastroesop hageal reflux disease: Father(V18.59, Z83.79) Status:Active Diverticulitis: Paternal Gra ndmother Status:Active Family history of kidney sto geena: Paternal Grandmother, Paternal Great Grandfather(V18.69, Z84.1) Status:Active Family history of asthma: Pa ternal Aunt(V17.5, Z82.5) Status:Active Family history of rheumatoid arthritis: Paternal Grandmother(V17.7, Z82.61) Status:Active Family history of migraine h eadaches: Paternal Grandmother, Sister(V17.2, Z82.0) Status:Active Family history of gastric ul cer: Paternal Grandmother(V18.59, Z83.79) Status:Active Infection of stomach: Matern al Aunt Status:Active Family history of colonic di verticulitis: Paternal Grandmother(V18.59, Z83.79) Status:Active Family history of atrial fib rillation: Father(V17.49, Z82.49) Status:Active Penicillin allergy: Father Status:Active Unknown Family Member Name Dates Details Hiatal hernia: Paternal Grea t Grandfather Status:Active Family history of gastroesop hageal reflux disease: Father(V18.59, Z83.79) Status:Active Diverticulitis: Paternal Gra ndmother Status:Active Family history of kidney sto geena: Paternal Grandmother, Paternal Great Grandfather(V18.69, Z84.1) Status:Active Family history of asthma: Pa ternal Aunt(V17.5, Z82.5) Status:Active Family history of rheumatoid arthritis: Paternal Grandmother(V17.7, Z82.61) Status:Active Family history of migraine h eadaches: Paternal Grandmother, Sister(V17.2, Z82.0) Status:Active Family history of gastric ul cer: Paternal Grandmother(V18.59, Z83.79) Status:Active Infection of stomach: Matern al Aunt Status:Active Family history of colonic di verticulitis: Paternal Grandmother(V18.59, Z83.79) Status:Active Family history of atrial fib rillation: Father(V17.49, Z82.49) Status:Active Penicillin allergy: Father Status:Active Unknown Family Member Name Dates Details Hiatal hernia: Paternal Kaleigh t Grandfather Status:Active Family history of gastroesop hageal reflux disease: Father(V18.59, Z83.79) Status:Active Diverticulitis: Paternal Gra ndmother Status:Active Family history of kidney sto geena: Paternal Grandmother, Paternal Great Grandfather(V18.69, Z84.1) Status:Active Family history of asthma: Pa ternal Aunt(V17.5, Z82.5) Status:Active Family history of rheumatoid arthritis: Paternal Grandmother(V17.7, Z82.61) Status:Active Family history of migraine h eadaches: Paternal Grandmother, Sister(V17.2, Z82.0) Status:Active Family history of gastric ul cer: Paternal Grandmother(V18.59, Z83.79) Status:Active Infection of stomach: Matern al Aunt Status:Active Family history of colonic di verticulitis: Paternal Grandmother(V18.59, Z83.79) Status:Active Family history of atrial fib rillation: Father(V17.49, Z82.49) Status:Active Penicillin allergy: Father Status:Active Advance Directives Documents on File Type Date Recorded 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 Good nutrition is important when healing from an illness, injury, or surgery. Follow any nutrition recommendations given to you during your hospital stay. ? If you were given an oral nutrition supplement while in the hospital, continue to take this supplement at home. You can take it with meals, in-between meals, and/or before bedtime. These supplements can be purchased at most local grocery stores, pharmacies, and chain [employer]-stores. ? If you have any questions about your diet or nutrition, call the hospital and ask for the dietitian. There are no dietary restrictions due to your hospitalization. Any pre- hospitalization dietary restrictions remain in place. * Additional Instructions* Elida Hawkins RN - 12/25/2018 [facility] Pediatric Surgery [facility] [address] [place], [place] P: [phone] ? [phone] ? AMBULATORY SURGERY POSTOPERATIVE INSTRUCTIONS ACTIVITY: Your child will likely feel tired today and possibly tomorrow. They may also be unsteady, and should be supervised or have assistance when up walking. Before your child leaves the hospital, you will be given instructions for when they can resume full activity, including sports, gym class, bike riding, and other vigorous activities. Generally, your child will need to refrain from vigorous activities for approximately one month, or until cleared by the surgeon. Please notify the clinical staff ifyou need a note for your child for school or to return to gym or sports. The following are guidelines for activity restrictions following surgery: No tub baths for 14 days post op. Showers can be resumed 48 72 hours post op. No gym, sports, vigorous activity, lifting more than the weight of a gallon of milk for 1 week, then can resume normal activity as tolerated. May return to school 2 3 days post-op. DIET: Some children do not feel hungry the evening after surgery. Anesthesia, the medicine that is given to help a child sleep during surgery, may cause stomach upset or vomiting. If nauseated or vomiting,it is okay to hold off on eating and drinking for a few hours. Wait 30 minutes to allow your child's stomach to settle down, then give small amounts of clear liquids or crushed ice every 10 minutes or so. If the nausea or vomiting return, wait another 30 minutes then try again. After a couple hourswith no nausea or vomiting, offer clear liquids, and small amounts of soft bland foods such as, applesauce, toast, pasta, cooked cereal or crackers. Avoid fatty or greasy, or restaurant foods. Keep some clear fluids on hand such as, Shiva-Aid, Popsicles, Gatorade, Pedialyte, broth, and dilute juices. Most children will wake up the morning after surgery feeling hungry. If your child continues to have vomiting the day after surgery, and is not drinking fluids, please contact our office for furtherinstructions. CARE OF THE SURGERY SITE: After surgery, your child will have one or more incisions. In most cases, the stitches will be placed under the skin and will dissolve over time and not need to be removed. A special dressing will beplaced over the incisions. This may be a skin glue or some paper tapes, called steri-strips. Eitherof these dressings will gradually become loose and peel off. It can be normal to see a small amount of old blood on or under the dressing the dressing. The area should be kept as clean and dry as possible. It can be normal to have some bruising or redness around the surgery site, this will gradually fade over several days. The site should not be bright red, or continue to have bleeding. As the incision site heals, it is normal for the scar to be dry, pink and slightly firm and raised. This scar appearance will improve over time. MEDICATIONS: We want to keep your child comfortable after surgery. Acetaminophen (TYLENOL) given every 6 hours, or Ibuprofen (MOTRIN, ADVIL) given every 6 hours are usually sufficient for relieving your child's pain. It is recommended that you have these available at home to use after surgery. Using Acetaminophen alone or alternating Acetaminophen with Ibuprofen around the clock for the first 24 48 hours is matthew effective way to treat your child's pain. OBSERVE AND CALL THE OFFICE FOR THE FOLLOWING: Bright red bleeding that is soaking through the dressings. Fever greater than 101. Drainage from the incision site that smells bad. Redness or swelling around the incision site that is getting larger. Nausea and vomiting that doesn't go away in 12 24 hours. Extreme pain or tenderness that is not relieved by Tylenol , Motrin or the ordered prescription pain medicine. OFFICE FOLLOW UP APPOINTMENT: After surgery, the surgeon will let you know when your child should be seen in our office. In most cases, if a follow up appointment is needed, you will need to call and make that appointment. Following some surgeries or procedures, the surgeon may tell you that your child will not need a follow upvisit or that their primary physician can see your child. If you are told a follow up appointment is not necessary, but have concerns or questions, please contact the office and speak to the clinicalstaff. We will be happy to see your child if needed. Please contact the [facility] office at [phone], or toll-free, [phone], to schedule an appointment. You may also contact the office if you have any questions or concerns regarding your child's surgery. Clinical staff is available during office hours to answer you questions or discuss your concerns. Per anesthesia No alcoholic beverages, no driving or operating machinery, no making important decisions for 24 hours. Children should maintain quiet play ( games, movies, books ) for 24 hours. You may have a normal diet but should eat lightly day of surgery. Drink plenty of fluids. Urinate within 8 hours after surgery, if unable to urinate call your doctor Call your doctor for the following: Chills Temperature greater than 101 Pain that is not tolerable despite taking pain medicine as ordered There is increased swelling, redness or warmth at surgical site There is increased drainage or bleeding from surgical site Do not remove surgical dressing unless instructed to do so by your surgeon documented in this encounter Reason for Referral Status Reason Specialty Diagnoses / Procedures Referre d By Contact Referred To Contact [facility] Diagnoses Foreign body of skin of chest, initial encounter Procedures US CHEST INCLUDING MEDIASTINUM HC ULTRASOUND CHEST Zay Santo, TE[employer]ER - [employer] [address] [facility] [address] [place] [address] Assessments Diagnosis Foreign body of skin of chest, initial encounter Chief Complaint * Accompanied by guardian. * 14 year old male patient here for one month follow up abdominal pain. * Accompanied by guardian. * 14 year old male patient here for one month follow up abdominal pain. * Accompanied by guardian. * 14 year old male patient here for one month follow up abdominal pain. * Accompanied by guardian. * 14 year old male patient here for one month follow up abdominal pain. Additional Source Comments (unrecognized sect ion and content) No Status Records FoundNo Status Records FoundNo Status Records FoundNo Status Records FoundNo Status Records Found INFORMATION SOURCE (unrecogn ized section and content) DATE [facility]ATED [facility] DATE CREATED AUTHOR AUTHOR'S ORGANIZ ATION 02/01/2019 [facility] DATE CREATED AUTHOR AUTHOR'S ORGANIZ ATION 08/12/2020 [facility] DATE CREATED AUTHOR AUTHOR'S ORGANIZ ATION 09/29/2020 [facility] DATE CREATED AUTHOR AUTHOR'S ORGANIZ ATION 10/06/2020 [facility] Reason for Visit (unrecogniz ed section and content) PATIENT HERE FOR 3-4 MONTH F OLLOW UP. WE WERE TO OBTAIN EGD/COLONOSCOPY REPORTS FROM DR. LEONARD (CALLED AND ASKED NEIL FOR EGD & COLONOSCOPY FOR EGD & COLONOSCOPY REPORTS TO BE FAXED HERE) Status Reason Specialty Diagnoses / Procedures Referre d By Contact Referred To Contact Diagnoses Superficial foreign body of unspecified front wall of thorax, initial encounter FOREIGN BODY ANTERIOR CHEST Procedures AK OFFICE/OUTPT VISIT,PROCEDURE ONLY AK REMOVE FOREIGN BODY COMPLIC EXCISION FOREIGN BODY ANTERIOR CHEST NEAR RIGHT CLAVICLE, ULTRASOUND MACHINE Teetee De Jesus MD [address] [place] [address] [facility] Status Reason Specialty Diagnoses / Procedures Referre d By Contact Referred To Contact [facility] Diagnoses Foreign body of skin of chest, initial encounter Procedures US CHEST INCLUDING MEDIASTINUM HC ULTRASOUND CHEST Zay Santo, TE[employer] - [employer] [address] [facility] [address] [place] [address] <item> Privacy Markings (unrecogniz ed section and content) Section Author: Waleska Paul PROHIBITION ON REDISCLOSURE OF CONFIDENTIAL INFORMATION This notice accompanies a disclosure of information concerning a client made to you with the consent of such client. FOR RECORDS PERTAINING TO PATIENTS WHO ARE OR HAVE BEEN ENROLLED IN A CHEMICAL DEPENDENCY/SUBSTANCEABUSE PROGRAM, SOME INFORMATION MAY BE OMITTED. This clinical summary was aggregated from multiple sources. Caution should be exercised in using it in the provision of clinical care. This summary normalizes information from multiple sources, and as a consequence, information in this document may materially change the coding, format and clinical context of patient data. In addition, data may be omitted in some cases. CLINICAL DECISIONS SHOULD BE BASED ON THE PRIMARY CLINICAL RECORDS. [employer] [facility]. provides no warranty or guarantee of the accuracy or completeness of information in this document."
[2024-04-24 15:35] VITALS: BP 123/60; PULSE 73; TEMP 36.4; O2SAT 99; BMI 20.1
--- NOTE | 2024-04-24 15:42 | XR_ITS ---
The [address] [address] Patient Name: ALEXANDR BRANCH MRN: [id number] date: 2005 Sex: M Assigned Patient Location: ER Current Patient Location: ED.MAIN Accession/Order Number: [id number] Exam Date: 04/24/2024 15:47 Report Date: 04/24/2024 16:25 At the request of: LOKESH GODINEZ Procedure: XR hand RT min 3V EXAM: XR hand RT min 3V HISTORY: punched wall COMPARISON: None. TECHNIQUE: PA, oblique, lateral x-ray right hand. FINDINGS: Mildly displaced oblique fracture base of the fourth metacarpal which is not appear to involve the articular surface. Small fragment along the radial aspect. Faint lucency base of third metacarpal nonspecific not confirmed on all views. Dorsal dislocation of the metacarpal at the carpometacarpal joint fifth finger. No cortical break or displaced fracture. Tiny calcific density base of the fifth metacarpal could be small avulsion. Soft tissue swelling adjacent to the fifth metacarpal. Normal appearance and alignment of the carpal bones, distal radius and ulna. First and second metacarpals unremarkable. Phalanges unremarkable. XR/XR hand RT min 3V IMPRESSION: 1. Fracture base of fourth metacarpal. Minimal faint lucency base of third metacarpal on one view is nonspecific. 2. Dorsal dislocation fifth metacarpal at the carpometacarpal joint. Tiny calcific density in this area without cortical step off or displaced fracture. Electronically authenticated by: KAREN VILLA Date: 04/24/2024 16:25
--- NOTE | 2024-04-24 15:42 | ED.UPPEXIN1 ---
HPI HPI - Extremity Injury (Upper) General Chief Complaint: Extremity Injury, Upper Stated Complaint: poss broken hand Time Seen by Provider: 04/24/24 15:32 Source: patient and friend Mode of arrival: walk-in Limitations: no limitations History of Present Illness HPI narrative: 18-year-old male presents to the emergency department for pain to his right hand. Coming into the emergency department he punched a wall. He states he writes with his left hand. He points to the dorsum of his hand and does not complain of pain in the wrist. No other injury was sustained. Related Data Previous Rx's ?Medication ?Instructions ?Recorded acetaminophen 300 mg-codeine 30 mg 1 tab PO Q6H PRN pain #20 tabs 04/24/24 tablet Allergies Allergy/AdvReac Type Severity Reaction Status Date / Time Penicillins Allergy Severe Rash Verified 04/24/24 15:35 Opioid HPI Opioid Management Most Recent Pain and Opioid Data: Last Pain Scale 9 04/24/24 15:43 04/24/24 Review of Systems ROS Narrative A ten point review of systems is negative except as noted above. PFSH [facility] Medical History (Updated 04/24/24 @ 16:05 by Cirilo Aguilera MD) No pertinent past medical history ?Z78.9 - Other specified health status (ICD-10) Surgical History (Updated 07/30/23 @ 18:48 by Cruz Boyd) No pertinent past surgical history ?Z78.9 - Other specified health status (ICD-10) Social History Little interest or pleasure in doing things: not at all Feeling down, depressed, or hopeless: not at all Exam Narrative Exam Narrative: Nurses note and vital signs reviewed and patient is not hypoxic. General: The patient appears well and in no apparent distress. Ice pack is present on his right hand. Skin: Warm, dry, no pallor noted. There is no rash noted. Head: Normocephalic, atraumatic Eye: Normal conjunctiva, no drainage Ears, Nose, Mouth, and Throat: oral mucosa is moist. Nares patent. Cardiovascular: Regular Rate and Rhythm Respiratory: Patient is in no distress, no accessory muscle use, lungs are clear to auscultation, no wheezing, rales or rhonchi Back: non-tender GI: Soft and nontender Musculoskeletal: The right wrist is nontender. He has some swelling on the dorsum of his right hand particularly on the ulnar side. Skin intact. Fingers have full range of motion and there is no rotational deformity of his fingers. Neurological: A&O, normal speech Psychiatric: Cooperative Constitutional Vital Signs, click to edit/add: Last Vital Signs Temp 97.6 F 04/24/24 15:35 Pulse 73 04/24/24 15:35 Resp 18 04/24/24 15:35 BP 123/60 04/24/24 15:35 Pulse Ox 99 04/24/24 15:35 O2 Del Method Room Air 04/24/24 15:35 Course Vital Signs Vital signs: Vital Signs Temperature 97.6 F 04/24/24 15:35 Pulse Rate 73 04/24/24 15:35 Respiratory Rate 18 04/24/24 15:35 Blood Pressure 123/60 04/24/24 15:35 Pulse Oximetry 99 04/24/24 15:35 Oxygen Delivery Method Room Air 04/24/24 15:35 Temperature 97.6 F 04/24/24 15:35 Pulse Rate 73 04/24/24 15:35 Respiratory Rate 18 04/24/24 15:35 Blood Pressure 123/60 04/24/24 15:35 Pulse Oximetry 99 04/24/24 15:35 Oxygen Delivery Method Room Air 04/24/24 15:35 MDM - Extremity Injury (Upper) MDM Narrative Medical decision making narrative: Right fourth metacarpal fractures identified. Ulnar gutter splint applied by me and application is appropriate, he is neurovascular intact. Sling also applied, application checked by me and found to be appropriate, he is neurovascularly intact. Follow-up with Dr. Guzman on Friday, April 26 at 12 noon and the possible need for surgery was discussed with the patient. He was provided Tylenol 3 prescription. Treatment diagnosis and follow-up were discussed with the patient. Differential Diagnosis Differential diagnosis: Likely other (Contusion, fracture) Imaging Data Right hand: My impression: Proximal fourth metacarpal fracture Discharge Plan Discharge Chief Complaint: Extremity Injury, Upper Clinical Impression: Fracture of fourth metacarpal bone of right hand Patient Disposition: Home, Self-Care Time of Disposition Decision: 16:05 Condition: Good Mode of Transportation: Private Vehicle Prescriptions / Home Meds: New acetaminophen-codeine 300-30 mg tablet 1 tab PO Q6H PRN (Reason: pain) Qty: 20 0RF Print Language: Romanian Instructions: Hand Fracture (ED) Referrals: Esequiel Cedeno MD [Primary Care Provider] - 1 week Oj Guzman MD [Physician] - 04/26/24 12:00 pm
[2024-04-24] MEDS: ACETAMINOPHEN 300 MG/ 30 MG CODEINE TABLET 1 TAB PO (16:12)
== END 2024-04-24 16:26 | disposition home or self-care (01) ==
PROVIDERS: Emergency Provider Emergency Medicine; PCP Family Medicine
DX: S62.314A Displaced fracture of base of fourth metacarpal bone, right hand, initial encounter for closed fracture (principal); W22.01XA Walked into wall, initial encounter
CPT/HCPCS: 29125; 73130; 99283

== ENCOUNTER 2024-04-26 14:22 | Outpatient (OUT) | payer OTHER, SELFPAY ==
--- NOTE | 2024-04-26 | XR_ITS ---
The [address] [address] Patient Name: ALEXANDR BRANCH MRN: [id number] date: 2005 Sex: M Assigned Patient Location: Current Patient Location: Accession/Order Number: [id number] Exam Date: 04/26/2024 14:27 Report Date: 04/26/2024 15:51 At the request of: JUVENAL SIDHU Procedure: XR hand RT min 3V HISTORY: Status post closed reduction of a fracture dislocation of the right hand. XR hand RT min 3V: 04/26/2024 2:27 PM EST COMPARISON: Radiographs right hand 04/24/2024. FINDINGS: There has been placement of a fiberglass splint over the wrist and hand which obscures fine bone detail. There is reposition of a dorsal dislocation of the base of the fifth metacarpal there is also a similar appearance of a mildly comminuted and moderately displaced oblique intra-articular fracture involving the base and proximal shaft of the fourth metacarpal. No new fracture or dislocation is seen. XR/XR hand RT min 3V IMPRESSION: 1. Persistent dorsal dislocation of the base of the fifth metacarpal. 2. Similar appearance of a mildly comminuted and moderately displaced oblique intra-articular fracture of the base and proximal shaft of the fourth metacarpal. 3. A CT scan of the right wrist focused on the carpometacarpal joints may be of benefit for a more definitive evaluation of this complex injury. Electronically authenticated by: NITISH LUO Date: 04/26/2024 15:51
--- OUTSIDE RECORDS SUMMARY | 2024-04-26 14:30 | XMS_ITS | CCD ---
Author Organization [facility] Care Team Providers Care Electrocardiograph Repairer Name Role Phone Nitish Cedeno Primary Care Provider [phone] ZAY SANTO Referring Unavailable NITISH CEDENO Primary [...] Care Unavailable LOKESH GODINEZ Admitting Unavailable LOKESH GOIDNEZ Consulting Unavailable ChadMan woodruffit Consulting Unavailable DENEEN, [...] Penicillins; Translations: [Penicillins] Drug Allergy 6 Rash [facility] Repository (2 sources) Penicillins Propensity to adverse reactions to drug 9 [place], [place] (1 source) Penicillins; Translations: [Penicillins] Allergy to drug (finding) EQ-Ollxxnzxjg-Cn nter Jalen Milner Work Phone: (4 sources) Penicillin G Benzathine Drug allergy Unknown [employer] Other Medications Current Medications Medication Drug Class(es) [...] Start: 12-25-2018 take 2 tablets by mo [facility] every six hours ibuprofen (ADVIL) 200 MG [...] Start: 06-08-2020 take 1 capsule by mo [facility] every week Vitamin D (Ergocalciferol) 1.25 MG (67703 UT) Oral Capsule TAKE 1 CAPSULE WEEKLY. [...] Start : 25-Apr-2016 Active polyethylene glycol 3350 67098 mg powder for oral solution (1 source) [...] LEONARD/REQUESTING ALLERGY TESTING Unclassified (1 source) R10.13 [id number] 08-15-2020 Comment on above: R10.13 [id number] Past or Other Problems Problem Classification Problem Date Documented Da te Episodic/Chronic Fluid and electrolyte disorders (1 source) Hypokalemia; Translations: [HYPOKALEMIA] Onset: 03-30-2020 Episodic Gastritis and duodenitis (5 sources) Gastritis, unspecified, without bleeding; Translations: [GASTRITIS UNS WITHOUT BLEEDING] Onset: 03-08-2020 Episodic Other aftercare (1 source) Other terminal operations supervisor (current) drug therapy; Translations: [OTH JAIL CURRENT DRUG THERAPY] Onset: 02-29-2020 Episodic Superficial injury; contusion (1 source) Foreign body of skin of chest; Translations: [Foreign body of skin of chest, initial encounter] Episodic Unclassified (1 source) History of clinical finding in subject; Translations: [History of being hospitalized] Unclassified (1 source) Patient encounter status; Translations: [NSAID long-term use] Results Test Name Value Interpretation Reference Range Facility No Panel Informationon 10-02 [email or web address] Biomode - Biomolecular Determination/Anaplan.aspx?={710 [id number]} [facility] RBC 737 Work Phone: [facility] RBC 737 Work Phone: [email or web address] Biomode - Biomolecular Determination/Anaplan.aspx?={228 [id number]} [facility] RBC 737 Work [...] Discharge Reconciliation: 02-Oct-2020 12:05 dicyclomine pantoprazole Normal [facility] Patient Profile - Preop - Pe diatric [...] Lives Withfather; grandmother(1) Resource/Environmental Concernsnone [facility] Anticipated at Transitionnone Substance: Smoking Statusnever [...] demonstration, verbal instruction Cultural Considerationsnone Developmental Considerationsnone Synagogue Considerationsnone Other learner availableno Do you feel [...] HIGH RISK. Are there any cultural, spiritual, orthodox practices/values/needs that are important for us to [...] Preop - Pediatric v2 01-May-2020 11:20 Normal [facility] Preop Checkliston 10-02-2020 Preop Checklist Preop Checklist: Preop Checklist: Arrival [id number] Arrival Time10:36 Procedure Typeegd/colonoscopy NPO [id number] 08:00 ID Band Onyes Allergy Bandyes Consent [...] 02-Oct-2020 10:37 by Roxanne Lee (RN) Normal [facility] Surgical Pathology Depar tmenton 10-02-2020 [facility] Surgical Pathology Department Name ALEXANDR BRANCH Pathologist: [...] in toto in one cassette. SBS sbs/10/03/2020 [facility] Department of Pathology [id number] [facility] [place] [facility] [place] [address] Normal [facility] Comment on above: Performed By: #### U [facility] ####[facility] Surgical Pathology [id number] [facility] [place] [address] Office Visit (Allergy/Immuno logy)on 09-28-2020 Follow-up visit History of Present I llness PATIENT WAS A NO SHOW FOR VISIT; NOTE PREPARED IN PREPARATION OF ANTICIPATED VISIT ALEXANDR BRANCH is a 14 year-old boy who was referred to the [facility] by Dr. Sheree Leonard for [...] Protein, Serumon 09-06-2020 CRP [Mass/Vol] mg/L [facility] Work Phone: Comment on above: REF VALUE< 1.00 C-REACTIVE PROTEINon 021 CRP [Mass/Vol] mg/L Normal [facility] Comment on above: Result Comment: REF VALUE < 1.00 Performed By: #### C RP #### [facility] [address] [place] [address] CBC AND DIFFERENTIALon 09-06 % AUTOMATED IMMATURE GRAN 0.2 % Normal 0.0 - 1.0 [facility] Comment on above: Result Comment: Arti ture Granulocyte Count (IG) includes promyelocytes, myelocytes and metamyelocytes but does not include bands. Percent differential counts (%) should be interpreted in the context of the absolute cell counts (cells/L). Performed By: #### C BCDF ####[id number] [place] [address] Basophils (Bld) [#/Vol] 0.02 10*3/uL Normal 0.00 - 0.10 [facility] Comment on above: Performed By: #### C BCDF ####[id number] [place] [address] Basophils/100 WBC (Bld) 0.4 % Normal 0.0 - 1.0 [facility] Comment on above: Performed By: #### C BCDF ####[id number] [place] [address] Eosinophils (Bld) [#/Vol] 0.04 10*3/uL Normal 0.00 - 0.70 [facility] Comment on above: Performed By: #### C BCDF ####[id number] [place] [address] Eosinophils/100 WBC (Bld) 0.8 % Normal 0.0 - 5.0 [facility] Comment on above: Performed By: #### C BCDF ####[id number] [place] [address] Erythrocyte distribution width (RBC) [Ratio] 12.1 % Normal 11.5 - 14.5 [facility] Comment on above: Performed By: #### C BCDF ####[id number] [place] [address] Hematocrit (Bld) [Volume fraction] 37.6 % Normal 37.0 - 49.0 [facility] Comment on above: Performed By: #### C BCDF ####[id number] [place] [address] Hemoglobin (Bld) [Mass/Vol] 13.6 g/dL Normal 13.0 - 16.0 [facility] Comment on above: Performed By: #### C BCDF ####[id number] [place] [address] Lymphocytes (Bld) [#/Vol] 1.25 10*3/uL Low 1.80 - 4.80 [facility] Comment on above: Performed By: #### C BCDF ####[id number] [place] [address] Lymphocytes/100 WBC (Bld) 25.4 % Normal 28.0 - 48.0 [facility] Comment on above: Performed By: #### C BCDF ####[id number] [place] [address] MCHC (RBC) [Mass/Vol] 36.2 g/dL Normal 31.0 - 37.0 [facility] Comment on above: Performed By: #### C BCDF ####[id number] [place] [address] MCV (RBC) [Entitic vol] 79 fL Normal 78 - 102 [facility] Comment on above: Performed By: #### C BCDF ####[id number] [place] [address] Monocytes (Bld) [#/Vol] 0.30 10*3/uL Normal 0.10 - 1.00 [facility] Comment on above: Performed By: #### C BCDF ####[id number] [place] [address] Monocytes/100 WBC (Bld) 6.1 % Normal 3.0 - 9.0 [facility] Comment on above: Performed By: #### C BCDF ####[id number] [place] [address] Neutrophils (Bld) [#/Vol] 3.31 10*3/uL Normal 1.20 - 7.70 [facility] Comment on above: Performed By: #### C BCDF ####[id number] [place] [address] Neutrophils/100 WBC (Bld) 67.1 % Normal 33.0 - 69.0 [facility] Comment on above: Performed By: #### C BCDF ####[id number] [place] [address] NUCLEATED RBC 0.0 /100 WBC Normal 0.0-0.0 [facility] Comment on above: Performed By: #### C BCDF ####[id number] [place] [address] Platelets (Bld) [#/Vol] 156 10*3/uL Normal 150 - 400 [facility] Comment on above: Performed By: #### C BCDF ####[id number] [place] [address] RBC 4.76 x10E12/L Normal 4.50 - 5.30 [facility] Comment on above: Performed By: #### C BCDF ####[id number] [place] [address] WBC (Bld) [#/Vol] 4.9 10*3/uL Normal 4.5 - 13.5 [facility] Comment on above: Performed By: #### C BCDF ####[id number] [place] [address] COMPREHENSIVE PANELon 09-06- 2020 Albumin [Mass/Vol] 4.6 g/dL Normal 3.4 - 5.0 [facility] Comment on above: Performed By: #### C MP #### [facility] [address] [place] [address] ALP [Catalytic activity/Vol] 120 U/L Normal 75 - 312 [facility] Comment on above: Performed By: #### C MP #### [facility] [address] [place] [address] ALT [Catalytic activity/Vol] 8 U/L Normal 3 - 28 [facility] Comment on above: Result Comment: Noreen ents treated with Sulfasalazine may generate falsely decreased results for ALT. Performed By: #### C MP #### [facility] [address] [place] [address] Anion gap [Moles/Vol] 13 mmol/L Normal 10 - 30 [facility] Comment on above: Performed By: #### C MP #### [facility] [address] [place] [address] AST [Catalytic activity/Vol] 13 U/L Normal 9 - 32 [facility] Comment on above: Performed By: #### C MP #### [facility] [address] [place] [address] Bilirubin [Mass/Vol] 0.5 mg/dL Normal 0.0 - 0.9 [facility] Comment on above: Performed By: #### C MP #### [facility] [address] [place] [address] Calcium [Mass/Vol] 9.8 mg/dL Normal 8.5 - 10.7 [facility] Comment on above: Performed By: #### C MP #### [facility] [address] [place] [address] Chloride [Moles/Vol] 107 mmol/L Normal 98 - 107 [facility] Comment on above: Performed By: #### C MP #### [facility] [address] [place] [address] Creatinine [Mass/Vol] 0.95 mg/dL Normal 0.60 - 1.10 [facility] Comment on above: Performed By: #### C MP #### [facility] [address] [place] [address] Glucose [Mass/Vol] 91 mg/dL Normal 74 - 99 [facility] Comment on above: Performed By: #### C MP #### [facility] [address] [place] [address] HCO3 (Bld) [Moles/Vol] 25 mmol/L Normal 18 - 27 [facility] Comment on above: Performed By: #### C MP #### [facility] [address] [place] [address] Potassium [Moles/Vol] 4.0 mmol/L Normal 3.5 - 5.3 [facility] Comment on above: Performed By: #### C MP #### [facility] [address] [place] [address] Protein [Mass/Vol] 6.4 g/dL Normal 6.2 - 7.7 [facility] Comment on above: Performed By: #### C MP #### [facility] [address] [place] [address] Sodium [Moles/Vol] 141 mmol/L Normal 136 - 145 [facility] Comment on above: Performed By: #### C MP #### [facility] [address] [place] [address] Urea nitrogen [Mass/Vol] 10 mg/dL Normal 6 - 23 [facility] Comment on above: Performed By: #### C MP #### [facility] [address] [place] [address] Complete Blood Count + Diffe kike 09-06-2020 Basophils/100 WBC (Bld) 0.4 % 0.0 - 1.0 [facility] Work Phone: Erythrocyte distribution width (RBC) [Ratio] 12.1 % See Below [facility] Work Phone: Comment on above: Reference Range: 11. 5 - 14.5 Hematocrit (Bld) [Volume fraction] 37.6 % See Below [facility] Work Phone: Comment on above: Reference Range: 37. 0 - 49.0 Hemoglobin (Bld) [Mass/Vol] 13.6 g/dL See Below [facility] Work Phone: Comment on above: Reference Range: 13. 0 - 16.0 Lymphocytes/100 WBC (Bld) 25.4 % See Below [facility] [facility] Work Phone: Comment on above: Reference Range: 28. 0 - 48.0 MCHC (RBC) [Mass/Vol] 36.2 g/dL See Below [facility] Work Phone: Comment on above: Reference Range: 31. 0 - 37.0 MCV (RBC) [Entitic vol] 79 fL 78 - 102 [facility] [facility] Work Phone: Monocytes/100 WBC (Bld) 6.1 % 3.0 - 9.0 [facility] Work Phone: Neutrophils/100 WBC (Bld) 67.1 % See Below [facility] Work Phone: Comment on above: Reference Range: 33. 0 - 69.0 Platelets (Bld) [#/Vol] 156 10*3/uL 150 - 400 [facility] Work Phone: RBC (Bld) [#/Vol] 4.76 {x10E12/L} See Below [facility] [facility] Work Phone: Comment on above: Reference Range: 4.5 0 - 5.30 WBC (Bld) [#/Vol] 4.9 10*3/uL 4.5 - 13.5 [facility] Work Phone: Complete Blood Count + Differential 0.8 % 0.0 - 5.0 [facility] Work Phone: Complete Blood Count + Differential 0.2 % 0.0 - 1.0 [facility] Work Phone: Comment on above: Immature Granulocyte Count (IG) includes promyelocytes, myelocytes and metamyelocytes but does not include bands. Percent differential counts (%) should be interpreted in the context of the absolute cell counts (cells/L). Complete Blood Count + Differential 0.0 {/100_WBC} 0.0-0.0 [facility] Work Phone: Complete Blood Count + Differential 0.02 {x10E9/L} See Below [facility] Work Phone: Comment on above: Reference Range: 0.0 0 - 0.10 Complete Blood Count + Differential 0.04 {x10E9/L} See Below [facility] Work Phone: Comment on above: Reference Range: 0.0 0 - 0.70 Complete Blood Count + Differential 0.30 {x10E9/L} See Below [facility] Work Phone: Comment on above: Reference Range: 0.1 0 - 1.00 Complete Blood Count + Differential 1.25 {x10E9/L} below low threshold See Below [facility] Work Phone: Comment on above: Reference Range: 1.8 0 - 4.80 Complete Blood Count + Differential 3.31 {x10E9/L} See Below [facility] Work Phone: Comment on above: Reference Range: 1.2 0 - 7.70 LIPASEon 09-06-2020 Lipase [Catalytic activity/Vol] 6 U/L Low 9 - 82 [facility] Comment on above: Result Comment: Madhuri puncture immediately after or during the administration of Metamizole may lead to falsely low results. Testing should be performed immediately prior to Metamizole dosing. F-oxjmhi-q-benzoquinone imine (metabolite of Acetaminophen) will generate erroneously low results in samples for patients that have taken toxic doses of acetaminophen. Performed By: #### L IPAS #### [facility] [address] [place] [address] Laboratory - Chemistry and C hemistry - challengeon 09-06-2020 Albumin BCP dye [Mass/Vol] 4.6 g/dL 3.4 - 5.0 [facility] Work Phone: ALP [Catalytic activity/Vol] 120 U/L 75 - 312 [facility] Work Phone: ALT With P-5'-P [Catalytic activity/Vol] 8 U/L 3 - 28 [facility] Work Phone: Comment on above: Patients treated wit h Sulfasalazine may generate falsely decreased results for ALT. Anion gap [Moles/Vol] 13 mmol/L 10 - 30 [facility] Work Phone: AST With P-5'-P [Catalytic activity/Vol] 13 U/L 9 - 32 [facility] Work Phone: Bilirubin [Mass/Vol] 0.5 mg/dL 0.0 - 0.9 [facility] Work Phone: Calcium [Mass/Vol] 9.8 mg/dL 8.5 - 10.7 [facility] Work Phone: Chloride [Moles/Vol] 107 mmol/L 98 - 107 [facility] Work Phone: CO2 [Moles/Vol] 25 mmol/L 18 - 27 [facility] Work Phone: Creatinine [Mass/Vol] 0.95 mg/dL See Below [facility] Work Phone: Comment on above: Reference Range: 0.6 0 - 1.10 Glucose [Mass/Vol] 91 mg/dL 74 - 99 [facility] Work Phone: Potassium [Moles/Vol] 4.0 mmol/L 3.5 - 5.3 [facility] Work Phone: Protein [Mass/Vol] 6.4 g/dL 6.2 - 7.7 [facility] [facility] Work Phone: Sodium [Moles/Vol] 141 mmol/L 136 - 145 [facility] Work Phone: Urea nitrogen [Mass/Vol] 10 mg/dL 6 - 23 [facility] Work Phone: Lipase, Serumon 09-06-2020 Lipase [Catalytic activity/Vol] 6 U/L below low threshold 9 - 82 [facility] Work Phone: Comment on above: Venipuncture immedia tely after or during the administration of Metamizole may lead to falsely low results. Testing should be performed immediately prior to Metamizole dosing. W-oanhvn-o-benzoquinone imine (metabolite of Acetaminophen) will generate erroneously low results in samples for patients that have taken toxic doses of acetaminophen. PD ABDOMEN, SINGLE VIEWon PD ABDOMEN, SINGLE VIEW Patient Name: ALEXANDR BRANCH STUDY: ABDOMEN, SINGLE VIEW INDICATION: abdominal pain chronic with constipation COMPARISON: None. ACCESSION NUMBER(S): [id number] ORDERING CLINICIAN: BAUDILIO WEST TECHNIQUE: AP supine [...] as stated. This study was interpreted at [facility], [place], [place]. IMPRESSION: Well distended to mildly dilated loops of small bowel in the central abdomen. Slight prominence of the jejunal folds. This is a nonspecific finding but could be seen in the setting of gastroenteritis or inflammation of other etiology. Electronically signed by: JAMISON JUDGE MD, [facility] Normal [facility] Provider Note - ED Pedson Provider Note - ED Peds Time Seen: Time [id number] 16:36 History of Presenting Illness and Social [...] Time Seen (more content not included)... Normal [facility] Radiologyon 09-06-2020 XR Abdomen AP Normal [facility] Work Phone: SEDIMENTATION RATE, ERYTHROC YTEon 09-06-2020 SEDIMENTATION RATE, ERYTHROCYTE <1 Normal 0 - 13 [facility] Comment on above: Performed By: #### E SRWS #### [facility] [address] [place] [address] Sedimentation Rate, Erythroc yteon 09-06-2020 ESR (Bld) [Velocity] mm/h 0 - 13 [facility] Work Phone: Triage - ED Pedson [...] Level: 3 Referral: Yes Peds Complaint Code ([place] ONLY): 6 Mode of Arrival: private vehicle [...] nausea, rectal blood and vomiting. RISK SCREEN [place] Suicide Risk Screen Risk Screen Not Applicable/Able [...] Updated: 06-Sep-2020 16:13 by Arie Merlos) Normal [facility] UA MICROSCOPICon 09-06-2020 Mucus Ql (Urine sed) 1+ /LPF Normal [facility] Comment on above: Performed By: #### U AMIC #### [facility] [address] [place] [address] RBC None Normal 0-5 [facility] Comment on above: Performed By: #### U AMIC #### [place] [address] [place] [address] WBC (U) [#/Vol] /uL Normal 0-5 [facility] Comment on above: Performed By: #### U AMIC #### [facility] [address] [place] [address] URINALYSISon 09-06-2020 Appearance (U) CLEAR Normal CLEAR [facility] Comment on above: Performed By: #### U A ####[id number] [place] [address] Bilirubin Ql (U) Negative Normal NEGATIVE [facility] Comment on above: Performed By: #### U A ####[id number] [place] [address] Color (U) STRAW Normal STRAW,YELLO W [facility] Comment on above: Performed By: #### U A ####[id number] [place] [address] Glucose Ql (U) Negative Normal NEGATIVE [facility] Comment on above: Performed By: #### U A ####[id number] [place] [address] Hemoglobin Ql (U) SMALL (1+) Abnormal NEGATIVE [facility] Comment on above: Performed By: #### U A ####[id number] [place] [address] Ketones Ql (U) Negative Normal NEGATIVE [facility] Comment on above: Performed By: #### U A ####[id number] [place] [address] Leukocyte esterase Test strip Ql (U) Negative Normal NEGATIVE [facility] Comment on above: Performed By: #### U A ####[id number] [place] [address] Nitrite Ql (U) Negative Normal NEGATIVE [facility] Comment on above: Performed By: #### U A ####[id number] [place] [address] pH (U) 7.0 [pH] Normal 5.0 - 8.0 [facility] Comment on above: Performed By: #### U A ####[id number] [place] [address] Protein Ql (U) Negative Normal NEGATIVE [facility] Comment on above: Performed By: #### U A ####[id number] [place] [address] Specific gravity (U) [Rel density] 1.008 Normal 1.005 - 1.035 [facility] Comment on above: Performed By: #### U A ####[id number] [place] [address] Urobilinogen (U) [Mass/Vol] mg/dL Normal 0.0 - 1.9 [facility] Comment on above: Performed By: #### U A ####[id number] [place] [address] Urinalysison 09-06-2020 Color (U) STRAW See Below [facility] Work Phone: Comment on above: Reference Range: STR AW,YELLOW Glucose Ql (U) Negative NEGATIVE [facility] Work Phone: Ketones Ql (U) Negative NEGATIVE [facility] Work Phone: Leukocyte esterase Test strip Ql (U) Negative NEGATIVE [facility] Work Phone: pH (U) 7.0 [pH] 5.0 - 8.0 [facility] Work Phone: Protein (U) [Mass/Vol] Negative NEGATIVE [facility] Work Phone: RBC (U) [#/Vol] SMALL (1+) Abnormal NEGATIVE [facility] Work Phone: Specific gravity (U) [Rel density] 1.008 1 See Below [facility] [facility] Work Phone: Comment on above: Reference Range: 1.0 05 - 1.035 Urinalysis Negative NEGATIVE [facility] Work Phone: Urinalysis <2.0 0.0 - 1.9 [facility] Work Phone: Urinalysis CLEAR CLEAR [facility] [facility] Work Phone: Urinalysis, Microscopicon Urinalysis, Microscopic 1+ [facility] [facility] Work Phone: Urinalysis, Microscopic None 0-5 [facility] Work Phone: Urinalysis, Microscopic <1 0-5 [facility] Work Phone: Peds Gastroenterology - Esta [...] Proctitis; Ordered By: Sheree Leonard Performed: Due: [id number] Colonoscopy Diagnostic; Status:Hold For - Scheduling; Requested for:15Aug2020; Perform:[facility]; Due:[id number];Ordered; For:Abdominal pain, chronic, epigastric, Canker sores oral, Eosinophilic gastritis, Gastro-esophageal reflux, Lower abdominal pain, Proctitis; Ordered By:Sheree Leonard; Patient competent to provide consent? 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 For issues or concerns call the Office [phone]. On the week end [phone] and ask for peds GI operator receptionist. For Scheduling [phone] Chief Complaint Accompanied by guardian. 14 year [...] Neurological: head (more content not included)... Normal [employer] ALLERGEN, CASEINon 1 [id number] Casein <0.10 Normal Class 0 [facility] Comment on above: Result Comment: Aron xie of Specific IgE Class Description of Class ----- < 0.10 0 Negative 0.10 - 0.31 0/I Equivocal/Low 0.32 - 0.55 I Low 0.56 - 1.40 II Moderate 1.41 - 3.90 III High 3.91 - 19.00 IV Very High 19.01 - 100.00 V Very High >100.00 Very High Performed By: #### L GUILLERMO GANT, CMP #### [facility] [address] [place], [place] [address] Tonya Tiradoen ALLERGEN, EGG WHITEon 2020 [id number] Egg White <1.10 Abnormal Class II [facility] Comment on above: Result Comment: Aron ls of Specific IgE Class Description of Class ----- < 0.10 0 Negative 0.10 - 0.31 0/I Equivocal/Low 0.32 - 0.55 I Low 0.56 - 1.40 II Moderate 1.41 - 3.90 III High 3.91 - 19.00 IV Very High 19.01 - 100.00 V Very High >100.00 Very High Performed By: #### L GUILLERMO GANT, CMP #### [facility] [address] [place], [place] [address] Tonya Tiradoen ALLERGEN, ALMONDon [id number] [place] <0.10 Normal Class 0 [facility] Comment on above: Performed By: #### A LMONDS ####[facility] [address] [place], [place] [address]Fwtsjv Katarina ALLERGEN, WHEYon 05-13-2020 Whey <0.10 Normal Class 0 [facility] Comment on above: Result Comment: Aron ls of Specific IgE Class Description of Class ----- < 0.10 0 Negative 0.10 - 0.31 0/I Equivocal/Low 0.32 - 0.55 I Low 0.56 - 1.40 II Moderate 1.41 - 3.90 III High 3.91 - 19.00 IV Very High 19.01 - 100.00 V Very High >100.00 Very High Performed By: #### Cholo ROBERTS #### [facility] [address] [place], [place] [address] Tonya Bray ALLERGEN, CORNon 05-12-2020 [id number] [place] <0.10 Normal Class 0 [facility] Comment on above: Result Comment: Leve ls of Specific IgE Class Description of Class ----- < 0.10 0 Negative 0.10 - 0.31 0/I Equivocal/Low 0.32 - 0.55 I Low 0.56 - 1.40 II Moderate 1.41 - 3.90 III High 3.91 - 19.00 IV Very High 19.01 - 100.00 V Very High >100.00 Very High Performed By: ###Morro GALVIN ####[facility] [address] [place] [id number] Brya ALLERGEN, PEANUTon [id number] Peanut <0.10 Normal Class 0 [facility] Comment on above: Result Comment: Leve ls of Specific IgE Class Description of Class ----- < 0.10 0 Negative 0.10 - 0.31 0/I Equivocal/Low 0.32 - 0.55 I Low 0.56 - 1.40 II Moderate 1.41 - 3.90 III High 3.91 - 19.00 IV Very High 19.01 - 100.00 V Very High >100.00 Very High Performed By: #### GUILLERMO RODIRGUEZ CMP #### [facility] [address] [place], [place] [address] Tonya Bray ALLERGEN, RICEon 05-12-2020 [id number] Rice <0.10 Normal Class 0 [facility] Comment on above: Result Comment: Leve ls of Specific IgE Class Description of Class ----- < 0.10 0 Negative 0.10 - 0.31 0/I Equivocal/Low 0.32 - 0.55 I Low 0.56 - 1.40 II Moderate 1.41 - 3.90 III High 3.91 - 19.00 IV Very High 19.01 - 100.00 V Very High >100.00 Very High Performed By: #### L GUILLERMO GANT CMP #### [facility] [address] [place], [place] [id number] Tonya Tiradoen ALLERGEN, SOYBEANon 05-13-19 [id number] Soybean <0.10 Normal Class 0 [facility] Comment on above: Result Comment: Aron ls of Specific IgE Class Description of Class ----- < 0.10 0 Negative 0.10 - 0.31 0/I Equivocal/Low 0.32 - 0.55 I Low 0.56 - 1.40 II Moderate 1.41 - 3.90 III High 3.91 - 19.00 IV Very High 19.01 - 100.00 V Very High >100.00 Very High Performed By: #### L GUILLERMO GANT, CMP #### [facility] [address] [place] [address] Tonya Tiradoen ALLERGEN, Petr 05-12-2020 [id number] [place] <0.10 Normal Class 0 [facility] Comment on above: Result Comment: Aron ls of Specific IgE Class Description of Class ----- < 0.10 0 Negative 0.10 - 0.31 0/I Equivocal/Low 0.32 - 0.55 I Low 0.56 - 1.40 II Moderate 1.41 - 3.90 III High 3.91 - 19.00 IV Very High 19.01 - 100.00 V Very High >100.00 Very High Performed By: #### W AMADOA ####[facility] [address] [place], [place] [address]Hxfcsk Katarina IMMUNOGLOBULIN E, TOTALon Immunoglobulin E, Total 11 IU/mL Critically low 18-628 [facility] Comment on above: Performed By: #### I MMUN E ####[facility] [address] [place] [address]Gerken Katarina ALLERGEN, CASEIN IGGon 05-11 Casein, IGG 18.7 ug/mL Critically high 0.0-1.9 The [facility] Comment on above: Performed By: #### C ASEAMINATAN ####[facility] [address] [place] [address]Gerken Katarina ALLERGEN, CORN IGGon 021 [place], IGG 2.3 ug/mL Critically high 0.0-1.9 The [facility] Comment on above: Performed By: #### L GUILLERMO GANT, CMP #### [facility] [address] [place] [address] Tonya Katarina ALLERGEN, RICE IGGon 021 Rice, IGG 2.9 ug/mL Critically high 0.0-1.9 The [facility] Comment on above: Performed By: #### L GUILLERMO GANT, CMP #### [facility] [address] [place] [id number] Tonya Katarina ALLERGEN, SOY SANCHEZ IGGon Soy Sanchez, IGG <2.0 Normal 0.0-1.9 The [facility] Comment on above: Performed By: #### S HEMA #### [facility] [address] [place] [id number] Tonya Katarina ALLERGEN, WHEAT IGGon 2020 Wheat, IGG 7.9 ug/mL Critically high 0.0-1.9 The [facility] Comment on above: Performed By: #### W JORGE LUIS ####[facility] [address] [place], [place] [address]Rarbif Katarina ALLERGEN, WHEY IGGon 05-11- 021 Whey, IGG 42.4 ug/mL Critically high 0.0-1.9 The [facility] Comment on above: Performed By: #### W HEYY #### [facility] [address] [place], [place] [address] Tonya Bray IMMUNOGLOBULIN IGA QUANTITIA VEon 05-10-2020 Immunoglobulin A, Qn, Serum 133 mg/dL Normal 90-386 [facility] Comment on above: Performed By: #### I MIGAQN #### [facility] [address] [place] [id number] [place]asouth Bray IMMUNOGLOBULIN IGG QUANTITAT IVEon 05-10-2020 Immunoglobulin G, Qn, Serum 640 mg/dL Critically low 671-1456 [facility] Comment on above: Performed By: #### L IPAGUILLERMO, CMP #### [facility] [address] [place] [id number] Tonya Bray IMMUNOGLOBULIN IGM QUANTITAT IVEon 05-10-2020 Immunoglobulin M, Qn, Serum 48 mg/dL Normal 35-168 [facility] Comment on above: Performed By: #### I MIGMQN ####[facility] [address] [place] [id number] Bray TISSUE TRANSGLUTAMINASE IGGo n 05-10-2020 t-Transglutaminase (tTG) IgG <2 Normal 0-5 [facility] Comment on above: Result Comment: Nega tive 0 - 5 Weak Positive 6 - 9 Positive >9 Performed By: #### L IPA, GUILLERMO, CMP #### [facility] [address] [place] [id number] Tonya Tiradoen CBC AUTO DIFFon 05-08-2020 BASO # 0.0 103/ul Normal 0.0-0.1 [facility] Comment on above: Performed By: #### L IPA, GUILLERMO, CMP #### [facility] [address] [place] [id number] [place]asouth Tiradoen Basophils/100 WBC (Bld) 0.4 % Normal 0.2-2.0 The [facility] Comment on above: Performed By: #### L GUILLERMO GANT, CMP #### [facility] [address] [place] [address] Tonya Katarina EO # 0.1 103/ul Normal 0.0-0.7 [facility] Comment on above: Performed By: #### L GUILLERMO GANT, CMP #### [facility] [address] [place] [address] Tonya Katarina Eosinophils/100 WBC (Bld) 2.8 % Normal 0.9-7.0 [facility] Comment on above: Performed By: #### L GUILLERMO GANT, CMP #### [facility] [address] [place] [address] Tonyasouth Tiradoen Erythrocyte distribution width (RBC) [Ratio] 12.2 % Normal 11.0-15.0 [facility] Comment on above: Performed By: #### L GUILLERMO GANT, CMP #### [facility] [address] [place] [address] Tonya Katarina Hematocrit (Bld) [Volume fraction] 41.8 % Critically low 42.0-54.0 [facility] Comment on above: Performed By: #### L GUILLERMO GANT, CMP #### [facility] [address] [place] [address] Tonyasouth Bray Hemoglobin (Bld) [Mass/Vol] 14.3 g/dL Normal 14.0-18.0 [facility] Comment on above: Performed By: #### L GUILLERMO GANT, CMP #### [facility] [address] [place] [address] Tonya Katarina IG # 0.01 10e3/ul Normal 0.00-0.03 [facility] Comment on above: Performed By: #### L GUILLERMO GANT, CMP #### [facility] [address] [place] [address] Tonya Katarina IG % 0.2 % Normal 0.0-0.5 [facility] Comment on above: Performed By: #### L GUILLERMO GANT, CMP #### [facility] [address] [place] [address] Tonya Katarina LYMPH # 1.6 103/ul Normal 1.2-3.8 [facility] Comment on above: Performed By: #### L GUILLERMO GANT, CMP #### [facility] [address] [place] [address] Tonya Katarina Lymphocytes/100 WBC (Bld) 33.9 % Normal 20.5-60.0 [facility] Comment on above: Performed By: #### L GUILLERMO GANT, CMP #### [facility] [address] [place] [address] Tonya Katarina MANUAL DIFF REQ NO Normal The [facility] Comment on above: Performed By: #### L GUILLERMO GANT, CMP #### [facility] [address] [place] [address] Tonya Katarina MCH (RBC) [Entitic mass] 27.8 pg Normal 25.9-34.0 [facility] Comment on above: Performed By: #### L GUILLERMO GANT, CMP #### [facility] [address] [place] [address] Tonyasouth Tiradoen MCHC (RBC) [Mass/Vol] 34.2 g/dL Normal 29.9-35.2 [facility] Comment on above: Performed By: #### L GUILLERMO GANT, CMP #### [facility] [address] [place] [address] Tonyasouth Tiradoen MCV (RBC) [Entitic vol] 81.2 fL Normal 76.3-90.1 [facility] Comment on above: Performed By: #### L GUILLERMO GANT, CMP #### [facility] [address] [place] [address] Tonya Katarina MONO # 0.3 103/ul Normal 0.3-0.8 [facility] Comment on above: Performed By: #### L GUILLERMO GANT, CMP #### [facility] [address] [place] [address] Tonya Katarina Monocytes/100 WBC (Bld) 6.5 % Normal 1.7-12.0 [facility] Comment on above: Performed By: #### L GUILLERMO GANT, CMP #### [facility] [address] [place], [place] [address] Tonya Katarina NEUT # 2.6 103/ul Normal 1.4-6.5 [facility] Comment on above: Performed By: #### L GUILLERMO GANT, CMP #### [facility] [address] [place], [place] [address] Tonya Bray Neutrophils/100 WBC (Bld) 56.2 % Normal 43.0-75.0 [facility] Comment on above: Performed By: #### L GUILLERMO GANT, CMP #### [facility] [address] [place], [place] [address] Tonyasouth Tiradoen Platelet mean volume (Bld) [Entitic vol] 12.5 fL Normal 9.5-13.5 [facility] Comment on above: Performed By: #### L GUILLERMO GANT, CMP #### [facility] [address] [place] [id number] Tonya Katarina PLT 158 103/ul Normal 150-450 [facility] Comment on above: Performed By: #### L GUILLERMO GANT, CMP #### [facility] [address] [place] [id number] Tonya Katarina RBC 5.15 106/ul Normal 3.30-5.40 [facility] Comment on above: Performed By: #### L GUILLERMO GANT, CMP #### [facility] [address] [place], [place] [address] Tonya Katarina WBC 4.6 103/ul Normal 4.0-11.0 [facility] Comment on above: Performed By: #### L GUILLERMO GANT, CMP #### [facility] [address] [place], [place] [address] Tonya Katarina CRPon 05-08-2020 CRP [Mass/Vol] mg/L Normal <=1.0 The [facility] Comment on above: Performed By: #### L IVER, TSH, RENAL, CRP ####[facility] [address] [place], [place] [address]Sqvjvy Katarina FREE T4on 05-08-2020 Free T4 [Mass/Vol] 1.03 ng/dL Normal 0.78-2.19 The [facility] Comment on above: Performed By: #### L IPA, GUILLERMO, CMP #### [facility] [address] [place], [place] [address] Tonyasouth Tiradoen LIVER PROFILEon 05-08-2020 Albumin [Mass/Vol] 4.3 g/dL Normal 3.5-5.0 The [facility] Comment on above: Performed By: #### L IVER, TSH, RENAL, CRP ####[facility] [address] [place] [id number] Katarina Albumin/Globulin [Mass ratio] 1.5 {ratio} Normal [facility] Comment on above: Performed By: #### L IVER, TSH, RENAL, CRP ####[facility] [address] [place] [id number] Katarina ALP [Catalytic activity/Vol] 164 U/L Normal 65-260 [facility] Comment on above: Performed By: #### L IVER, TSH, RENAL, CRP ####[facility] [address] [place] [address]Gerken Katarina ALT [Catalytic activity/Vol] 16 U/L Critically low 21-72 [facility] Comment on above: Performed By: #### L IVER, TSH, RENAL, CRP ####[facility] [address] [place] [id number] Katarina AST [Catalytic activity/Vol] 10 U/L Critically low 17-59 [facility] Comment on above: Performed By: #### L IVER, TSH, RENAL, CRP ####[facility] [address] [place] [id number] Katarina BILI, CONJUGATED 0.1 mg/dL Normal 0.0-0.3 The [facility] Comment on above: Performed By: #### L IVER, TSH, RENAL, CRP ####[facility] [address] [place] [address]Gerken Katarina Bilirubin [Mass/Vol] 0.4 mg/dL Normal 0.2-1.3 [facility] Comment on above: Performed By: #### L IVER, TSH, RENAL, CRP ####[facility] [address] [place], [place] [address]Farpfi Katarina Globulin (S) [Mass/Vol] 2.8 g/dL Normal [facility] Comment on above: Performed By: #### L IVER, TSH, RENAL, CRP ####[facility] [address] [place], [place] [address]Ccuuns Katarina Protein [Mass/Vol] 7.1 g/dL Normal 6.1-8.2 The [facility] Comment on above: Performed By: #### L IVER, TSH, RENAL, CRP ####[facility] [address] [place], [place] [address]Wkvnkq Katarina RENAL FUNCTION PANELon 05-08 Calcium [Mass/Vol] 9.7 mg/dL Normal 8.4-10.2 The [facility] Comment on above: Performed By: #### L IVER, TSH, RENAL, CRP ####[facility] [address] [place] [address]Gerken Katarina Chloride [Moles/Vol] 106 mmol/L Normal 98-107 [facility] Comment on above: Performed By: #### L IVER, TSH, RENAL, CRP ####[facility] [address] [place] [address]Gerken Katarina CO2 [Moles/Vol] 29.7 mmol/L Normal 22.0-30.0 The [facility] Comment on above: Performed By: #### L IVER, TSH, RENAL, CRP ####[facility] [address] [place] [address]Gerken Katarina Creatinine [Mass/Vol] 1.00 mg/dL Normal 0.66-1.25 [facility] Comment on above: Performed By: #### L IVER, TSH, RENAL, CRP ####[facility] [address] [place] [address]Gerken Katarina Glucose [Mass/Vol] 69 mg/dL Critically low 74-106 [facility] Comment on above: Performed By: #### L IVER, TSH, RENAL, CRP ####[facility] [address] [place] [address]Gerken Katarina Phosphate [Mass/Vol] 3.8 mg/dL Normal 2.5-4.5 [facility] Comment on above: Performed By: #### L IVER, TSH, RENAL, CRP ####[facility] [address] [place], [place] [address]Gtwsfl Katarina Potassium [Moles/Vol] 3.6 mmol/L Normal 3.4-5.0 [facility] Comment on above: Performed By: #### L IVER, TSH, RENAL, CRP ####[facility] [address] [place] [address]Gerken Katarina Sodium [Moles/Vol] 143 mmol/L Normal 137-145 The [place] Comment on above: Performed By: #### L IVER, TSH, RENAL, CRP ####[facility] [address] [place], [place] [address]Gerken Katarina Urea nitrogen [Mass/Vol] 15.0 mg/dL Normal 6.4-19.3 [facility] Comment on above: Performed By: #### L IVER, TSH, RENAL, CRP ####[facility] [address] [place], [place] [address]Gerken Katarina [facility] <1 Normal <=15 [facility] Comment on above: Performed By: #### S EDR ####[facility] [address] [place], [place] [address]Gerken Katarina TSHon 05-08-2020 TSH 1.178 uIU/mL Normal 0.430-3.750 The [facility] Comment on above: Performed By: #### L IVER, TSH, RENAL, CRP ####[facility] [address] [place], [place] [address]Gerken Katarina TSH RANGE SEE BELOW Normal [facility] Comment on above: Result Comment: <0.3 4 UIU/ml HYPERTHYROID 0.34-5.60 UIU/ml EUTHYROID >5.60 UIU/ml HYPOTHYROID Performed By: #### L IVER, TSH, RENAL, CRP ####[facility] [address] [place], [place] [address]Lzhzfy Karen VITAMIN D 25 OHon 05-08-2020 VIT D 25-OH <20.0 Normal [facility] Comment on above: Performed By: #### L GUILLERMO GANT, CMP #### [facility] [address] [place], [place] [address] Tonya Bray VIT D RANGES SEE BELOW Normal [facility] Comment on above: Result Comment: <20 ng/mL Vit D deficient 20 - <30 ng/mL Vit D insufficient 30 - 100 ng/mL Vit D sufficient >100 ng/mL Potential Toxicity Performed By: #### L GUILLERMO GANT, CMP #### [facility] [address] [place], [place] [address] Tonya Bray DISACCHARIDASE ANALYSISon INTERPRETATION SEE BELOW Normal [facility] Comment on above: Result Comment: The intestinal biopsy from this patient had normal disaccharidase activities. Test Performed by: [employer] [facility] [employer] [place] [address] Performed By: #### D MARLENA #### [facility] [address] [place] [address] LACTASE 32.0 Normal [facility] Comment on above: Result Comment: ---- REFERENCE VALUE Range 24.5 +/- 8.0 Abnormal <15.0 Units = uM/min/gram protein Performed By: #### D MARLENA #### [facility] [address] [place] [address] MALTASE 201.3 Normal [facility] Comment on above: Result Comment: ---- REFERENCE VALUE Range 160.8 +/- 62.8 Abnormal <100.0 Units = uM/min/gram protein Performed By: #### D MARLENA #### [facility] [address] [place] [address] PALATINASE 11.8 Normal [facility] Comment on above: Result Comment: ---- REFERENCE VALUE Range 11.1 +/- 6.5 Abnormal <5.0 Units = uM/min/gram protein Performed By: #### D MARLENA #### [facility] [address] [place] [address] SUCRASE 66.3 Normal [facility] Comment on above: Result Comment: ---- REFERENCE VALUE Range 54.4 +/- 25.4 Abnormal <25.0 Units = uM/min/gram protein Performed By: #### D MARLENA #### [facility] [address] [place] [address] Order Reconciliationon 05-01 Order Reconciliation Page 1 [...] Reconciliation: 01-May-2020 12:29 Carafate dicyclomine pantoprazole Normal [facility] Patient Profile - Preop - Pe diatric [...] pain, nausea Primary Contact Name and NumberConnie [phone] Patient Belongingsgiven to parent/guardian Patient Belongings Given [...] Lives Withfather; grandmother Resource/Environmental Concernsnone [facility] Anticipated at Transitionnone Substance: Current or [...] Able to be Assessed for Learningyes Educational Olcbg27fj10th grade Factors Influence Readiness to Learnnone, ready to learn Factors Impact Ability to Learnnone Devices/Methods Used to Communicatenone Learning Preferencescomputer/biology intern et, verbal instruction, written material Cultural Considerationsnone Developmental Considerationsnone Synagogue Considerationsnone Other learner availableyes Other Learner is Able to be Assessed for Learningyes Other Learnersfamily, legal guardian Educational Levelnot asked Factors Influencing Readiness to Learnnone, ready to learn Factors that Impact Ability to Learnnone Devices/Methods Used to Communicatenone Learning Preferencesverbal instruction, written material Cultural Considerationsnone Developmental Considerationsnone Synagogue Considerationsnone During the past month, have you often been bothered by feeling down, depressed or hopelessno During the past month, have you often had little interest or pleasure in doing thingsno Have you had any thoughts of harming yourselfno Have you had any thoughts of harming anyone [place] RiskPatient location auto qualifies him/her for HIGH RISK. Are there any cultural, spiritual, orthodox practices/values/needs that are important for us to [...] 11:28 by Eusebia Silva (ANA M) Normal [facility] Preop Checkliston 05-01-2020 Preop Checklist Preop Checklist: Preop Checklist: Arrival [id number] Arrival Time10:41 Procedure TypeEGD/colon Temperature C36.7 degrees C Temperature F98 degrees F Heart Rate65 beats per minute Respiratory Rate20 breath per minute Blood Pressure Lknejnao489 mm/Hg Blood Pressure Zuhujffag36 mm/Hg NPO [id number] 07:00 ID Band Onyes Allergy Bandyes Consent [...] 01-May-2020 11:20 by Eusebia Silva (RN) Normal [facility] Surgical Pathology Depar tmenton 05-01-2020 [facility] Surgical Pathology Department Name ALEXANDR BRANCH Pathologist: [...] reviewed in conjunction with pathology resident, Moreno Herring M.D. Electronically Signed Out By LEELA GARCÍA [...] the Department of Pathology Immunohistochemistry Labs at [facility]. The FDA does not require this test [...] stained appr (more content not included)... Normal [facility] Comment on above: Performed By: #### U [facility] ####[facility] Surgical Pathology [id number] [facility]ClevelA[facility] [address] CORONAVIRUS 2019, SCREEN ASY MPTOMATICon 04-29-2020 SARS-CoV-2 (COVID-19) RNA SELMA+probe Ql (Unsp spec) Not detected Normal Not Detected [facility] Comment on above: Result Comment: . This [...] patient management decisions. Fact sheet for providers: https://www.fda.gov/media/661481/download Fact sheet for patients: https://www.fda.gov/media/095126/download This test has received FDA Emergency Use Authorization (EUA) and has been verified by [facility] ([facility]). This test is only authorized for the duration of time that circumstances exist to justify the authorization of the emergency use of in vitro diagnostic tests for the detection of SARS-CoV-2 virus and/or diagnosis of COVID-19 infection under section 564(b)(1) of the Act, 21 U.S.C. 360bbb-3(b)(1), unless the authorization is terminated or revoked sooner. [facility] is certified under CLIA-88 as qualified to perform high complexity testing. Testing is performed in the [facility] laboratories located at [address] [place] [address]. Performed By: #### C OVSC #### [address] [place] [address] Covid 19 Resultson 1 SARS-CoV-2 (COVID-19) RNA [...] You may also be contacted by the [facility] to see if any of your close [...] or Naproxen (Aleve) can also be used. Bdzj-vtp-wthkujo cough and cold medicines can be used according to the instructions on the package. Some ivld-gqu-gagxekm medicines also contain acetaminophen. Make sure you [...] water are not available, use alcohol-based hand film processing supervisor. Avoid touching your eyes, nose, and mouth [...] ibuprofen (Motrin) (more content not included)... Normal [facility] CORONAVIRUS 2019, SCREEN ASY MPTOMATICon 04-28-2020 Lab Specimen Source Nasal, Nasopharyngeal Normal [facility] Comment on above: Performed By: #### C OVSC #### [facility] [address] [place] [address] Coronavirus 2019 RNA by PCR, Screening Asymptomticon 04-28-2020 Coronavirus 2019 RNA by PCR, Screening Asymptomtic NOT DETECTED Normal See Below -Pediatric s-[place] A Work Phone: Comment on above: SOURCE: [...] make patient management decisions.Fact sheet for providers: https://www.fda.gov/media/908699/downloadFact sheet for patients: https://www.fda.gov/media/487514/downloadThis test has received FDA Emergency Use Authorization (EUA) and has been verified by [facility] ([facility]). This test is only authorized for the duration of time that circumstances exist to justify the authorization of the emergency use of in vitro diagnostic tests for the detection of SARS-CoV-2 virus and/or diagnosis of COVID-19 infection under section 564(b)(1) of the Act, 21 U.S.C. 360bbb-3(b)(1), unless the authorization is terminated or revoked sooner. [facility] is certified under CLIA-88 as qualified to perform high complexity testing. Testing is performed in the [facility] laboratories located at [address] [place] [address]. CORONAVIRUS 2018, SCREEN ASY MPTOMATICon 04-25-2020 DATE OF SYMPTOM ONSET [[id number]]? Canceled Normal [facility] Comment on above: Order Comment: TEST CORONAVIRUS 2018, SCREEN ASYMPTOMATIC WAS CANCELLED, 04/25/2020 12:39 Patient was no show for COVID testing. Performed By: #### C OVSC #### [address] [place] [address] SARS-CoV-2 (COVID-19) RNA SELMA+probe Ql (Unsp spec) Canceled Normal [facility] Comment on above: Order Comment: TEST CORONAVIRUS [...] patient management decisions. Fact sheet for providers: https://www.fda.gov/media/554230/download Fact sheet for patients: https://www.fda.gov/media/576364/download This test has received FDA Emergency Use Authorization (EUA) and has been verified by [facility] ([facility]). This test is only authorized for the duration of time that circumstances exist to justify the authorization of the emergency use of in vitro diagnostic tests for the detection of SARS-CoV-2 virus and/or diagnosis of COVID-19 infection under section 564(b)(1) of the Act, 21 U.S.C. 360bbb-3(b)(1), unless the authorization is terminated or revoked sooner. [facility] is certified under CLIA-88 as qualified to perform high complexity testing. Testing is performed in the [facility] laboratories located at [address] [place] [address]. Performed By: #### C OVSC #### [place] [address] FREE THYROXINE INDEX T7on FTI 2.80 Normal [facility] Comment on above: Performed By: #### L GUILLERMO GANT CMP #### [facility] [address] [place] [address] Tonya Katarina T3U 35.0 % Normal 23.5-40.5 [facility] Comment on above: Performed By: #### L GUILLERMO GANT CMP #### [facility] [address] [place] [address] Tonya Katarina T4 [Mass/Vol] 8.00 ug/dL Normal 5.53-11.00 [facility] Comment on above: Performed By: #### L GUILLERMO GANT CMP #### [facility] [address] [address] Tonya Bray TSHon 04-07-2020 TSH 1.686 uIU/mL Normal 0.430-3.750 [facility] Comment on above: Performed By: #### L GUILLERMO GANT, CMP #### [facility] [address] [id number] Tonya Bray TSH RANGE SEE BELOW Normal [facility] Comment on above: Result Comment: <0.3 4 UIU/ml HYPERTHYROID 0.34-5.60 UIU/ml EUTHYROID >5.60 UIU/ml HYPOTHYROID Performed By: #### L GUILLERMO GANT, CMP #### [facility] [address] [address] Tonya Bray CORONAVIRUS 2019, SCREEN ASY MPTOMATICon 04-04-2020 Lab Specimen Source Nasal, Nasopharyngeal Normal [facility] Comment on above: Order Comment: TEST CORONAVIRUS 2019, SCREEN ASYMPTOMATIC WAS CANCELLED, 04/25/2020 12:39 Patient was no show for COVID testing. Performed By: #### C OVSC #### [facility] [address] 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) Nausea in adult (787.02) (R11.0) Abdominal pain, chronic, epigastric (789.06,338.29) (R10.13,G89.29) Lower abdominal pain (789.09) (R10.30) Orders Abdominal pain, chronic, epigastric, Canker sores oral, Chronic headache, Gastro-esophageal reflux, Lower abdominal pain, Nausea in adult Colonoscopy; Status:Active; Requested for:31Mar2020; Perform:[facility]; Due:29Jun2020; Last Updated By:Jenniffer Souza; 03/31/2020 2:43:58 PM;Ordered; For:Abdominal pain, chronic, epigastric, Canker sores oral, Chronic headache, Gastro-esophageal reflux, Lower abdominal pain, Nausea in adult; Ordered By:Sheree Leonard; Patient competent to provide consent? : Yes-pt mentally competent to provide consent Endoscopy - Upper GI; Status:Active; Requested for:31Mar2020; Perform:[facility]; Order Comments:disacchs possible labs; Due:29Jun2020; Last Updated [...] and disacchs will follow up labs from [place]-[facility] Can stop everything but pantoprazole use MiraLAX if the stools get hard RTC after the scope. For issues or concerns call the Office [phone]. On the week end [phone] and ask for peds GI operator receptionist. For Scheduling [phone] Chief Complaint Accompanied by grandparent(s). New patient [...] (V58.64) (Z79.1 (more content not included)... Normal [facility] CBC AUTO DIFFon 03-29-2020 BASO # 0.0 103/ul Normal 0.0-0.1 [facility] Comment on above: Performed By: #### L GUILLERMO GANT, CMP #### [facility] [address] [place] [address] Tonya Katarina Basophils/100 WBC (Bld) 0.2 % Normal 0.2-2.0 [facility] Comment on above: Performed By: #### L GUILLERMO GANT, CMP #### [facility] [address] [place] [address] Tonya Katarina EO # 0.1 103/ul Normal 0.0-0.7 [facility] Comment on above: Performed By: #### L GUILLERMO GANT, CMP #### [facility] [address] [place] [address] Tonya Katarina Eosinophils/100 WBC (Bld) 1.6 % Normal 0.9-7.0 [facility] Comment on above: Performed By: #### L GUILLERMO GANT, CMP #### [facility] [address] [place] [address] Tonya Katarina Erythrocyte distribution width (RBC) [Ratio] 12.1 % Normal 11.0-15.0 [facility] Comment on above: Performed By: #### L GUILLERMO GANT, CMP #### [facility] [address] [place] [address] Tonya Katarina Hematocrit (Bld) [Volume fraction] 40.5 % Critically low 42.0-54.0 [facility] Comment on above: Performed By: #### L GUILLERMO GANT, CMP #### [facility] [address] [place], [place] [id number] Tonya Katarina Hemoglobin (Bld) [Mass/Vol] 14.5 g/dL Normal 14.0-18.0 [facility] Comment on above: Performed By: #### L GUILLERMO GANT, CMP #### [facility] [address] [address] Tonya Katarina IG # 0.01 10e3/ul Normal 0.00-0.03 [facility] Comment on above: Performed By: #### L IPA GUILLERMO, CMP #### [facility] [address] [address] Tonya Katarina IG % 0.2 % Normal 0.0-0.5 [facility] Comment on above: Performed By: #### L IPA GUILLERMO, CMP #### [facility] [address] [address] Tonya Katarina LYMPH # 1.6 103/ul Normal 1.2-3.8 [facility] Comment on above: Performed By: #### L STALIN GUILLERMO, CMP #### [facility] [address] [place] [address] Tonya Bray Lymphocytes/100 WBC (Bld) 29.7 % Normal 20.5-60.0 [facility] Comment on above: Performed By: #### L STALIN GUILLERMO, CMP #### [facility] [address] [place] [address] Tonya Bray MANUAL DIFF REQ NO Normal [facility] Comment on above: Performed By: #### L STALIN GUILLERMO, CMP #### [facility] [address] [address] [place]outh [place] MCH (RBC) [Entitic mass] 28.0 pg Normal 25.9-34.0 [facility] Comment on above: Performed By: #### L IPA GUILLERMO, CMP #### [facility] [address] [address] Tonyasouth Bray MCHC (RBC) [Mass/Vol] 35.8 g/dL Critically high 29.9-35.2 [facility] Comment on above: Performed By: #### L IPA GUILLERMO, CMP #### [facility] [address] [address] Tonya Katarina MCV (RBC) [Entitic vol] 78.3 fL Normal 76.3-90.1 [facility] Comment on above: Performed By: #### L GUILLERMO GANT, CMP #### [facility] [address] [place] [address] Tonya Katarina MONO # 0.4 103/ul Normal 0.3-0.8 [facility] Comment on above: Performed By: #### L GUILLERMO GANT, CMP #### [facility] [address] [place] [address] Tonya Katarina Monocytes/100 WBC (Bld) 7.1 % Normal 1.7-12.0 [facility] Comment on above: Performed By: #### L GUILLERMO GANT, CMP #### [facility] [address] [place] [address] Tonya Katarina NEUT # 3.4 103/ul Normal 1.4-6.5 [facility] Comment on above: Performed By: #### L GUILLERMO GANT, CMP #### [facility] [address] [place] [address] Tonya Katarina Neutrophils/100 WBC (Bld) 61.2 % Normal 43.0-75.0 [facility] Comment on above: Performed By: #### L GUILLERMO GANT, CMP #### [facility] [address] [place] [address] Tonya Katarina Platelet mean volume (Bld) [Entitic vol] 12.0 fL Normal 9.5-13.5 [facility] Comment on above: Performed By: #### L GUILLERMO GANT, CMP #### [facility] [address] [place] [address] Tonya Katarina PLT 147 103/ul Critically low 150-450 [facility] Comment on above: Performed By: #### L GUILLERMO GANT, CMP #### [facility] [address] [place] [address] Tonya Katarina RBC 5.17 106/ul Normal 3.30-5.40 [facility] Comment on above: Performed By: #### L GUILLERMO GANT, CMP #### [facility] [address] [place] [address] Tonya Katarina WBC 5.5 103/ul Normal 4.0-11.0 [facility] Comment on above: Performed By: #### L GUILLERMO GANT, CMP #### [facility] [address] [place], [place] [address] Tonya Bray LIPASEon 03-29-2020 Lipase [Catalytic activity/Vol] 114.0 U/L Normal 23.0-300.0 [facility] Comment on above: Performed By: #### C MP, LIPA ####[facility] [address] [place], [place] [address]Sknaod Katarina MONOon 03-29-2020 Monocytes (Bld) [#/Vol] Negative Normal NEGATIVE [facility] Comment on above: Performed By: #### M KYLE #### [facility] [address] [place] [address] Tonya Bray PROF 14(COMP METB)on 021 AGE Normal [facility] Comment on above: Performed By: #### C KRIS LIPA ####[facility] [address] [place], [place] [address]Iqflbv Katarina Albumin [Mass/Vol] 4.4 g/dL Normal 3.5-5.0 [facility] Comment on above: Performed By: #### C KRIS, LIPA ####[facility] [address] [place], [place] [address]Jfqmjj Katarina Albumin/Globulin [Mass ratio] 1.8 {ratio} Normal [facility] Comment on above: Performed By: #### C MP, LIPA ####[facility] [address] [place], [place] [address]Xoasmf Katarina ALP [Catalytic activity/Vol] 186 U/L Normal 65-260 [facility] Comment on above: Performed By: #### C MP, LIPA ####[facility] [address] [place], [place] [address]Ecokrv Katarina ALT [Catalytic activity/Vol] 16 U/L Critically low 21-72 [facility] Comment on above: Performed By: #### C KRIS, LIPA ####[facility] [address] [place], [place] [address]Gerken Katarina Anion gap [Moles/Vol] 18.1 mmol/L Normal [facility] Comment on above: Performed By: #### C KRIS, LIPA ####[facility] [address] [place] [address]Alcerl Katarina AST [Catalytic activity/Vol] 11 U/L Critically low 17-59 [facility] Comment on above: Performed By: #### C KRIS, LIPA ####[facility] [address] [place], [place] [address]Gerken Katarina Bilirubin [Mass/Vol] 0.6 mg/dL Normal 0.2-1.3 [facility] Comment on above: Performed By: #### C KRIS, LIPA ####[facility] [address] [place], [place] [address]Gerken Katarina Calcium [Mass/Vol] 9.7 mg/dL Normal 8.4-10.2 The [facility] Comment on above: Performed By: #### C KRIS, LIPA ####[facility] [address] [place], [place] [address]Gerken Katarina Chloride [Moles/Vol] 104 mmol/L Normal 98-107 [facility] Comment on above: Performed By: #### C KRIS, LIPA ####[facility] [address] [place], [place] [address]Gerken Katarina CO2 [Moles/Vol] 21.0 mmol/L Critically low 22.0-30.0 [facility] Comment on above: Performed By: #### C KRIS, LIPA ####[facility] [address] [place], [place] [address]Gerken Katarina Creatinine [Mass/Vol] 1.12 mg/dL Normal 0.66-1.25 [facility] Comment on above: Performed By: #### C KRIS, LIPA ####[facility] [address] [place], [place] [address]Gerken Katarina EGFR-AF [place] Normal >=60 The [facility] Comment on above: Performed By: #### C KRIS, LIPA ####[facility] [address] [place], [place] [address]Mdftlp Katarina EGFR-NON AF [place] Normal >=60 [facility] Comment on above: Performed By: #### C KRIS, LIPA ####[facility] [address] [place], [place] [address]Rbbztk Katarina Globulin (S) [Mass/Vol] 2.5 g/dL Normal [facility] Comment on above: Performed By: #### C KRIS, LIPA ####[facility] [address] [place], [place] [address]Jynogk Katarina Glucose [Mass/Vol] 119 mg/dL Critically high 74-106 [facility] Comment on above: Performed By: #### C KRIS, LIPA ####[facility] [address] [place], [place] [address]Ikuwfz Katarina Potassium [Moles/Vol] 3.1 mmol/L Critically low 3.4-5.0 [facility] Comment on above: Performed By: #### C KRIS, LIPA ####[facility] [address] [place], [place] [address]Kuywfx Katarina Protein [Mass/Vol] 6.9 g/dL Normal 6.1-8.2 [facility] Comment on above: Performed By: #### C KRIS LIPA ####[facility] [address] [place] [address]Ztexaf Katarina Sodium [Moles/Vol] 140 mmol/L Normal 137-145 The [facility] Comment on above: Performed By: #### C KRIS, LIPA ####[facility] [address]ub[address] [place], [place] [address]Tyxhbc Katarina Urea nitrogen [Mass/Vol] 15.0 mg/dL Normal 6.4-19.3 [facility] Comment on above: Performed By: #### C KRIS LIPA ####[facility] [address] [place], [place] [address]Azjlww Katarina Urea nitrogen/Creatinine [Mass ratio] 13.4 mg/mg Normal [facility] Comment on above: Performed By: #### C KRIS WILFRED ####[facility] In[address] [place], [place] [address]Zlrewt Katarina XR ABD FLAT UP_PA Andrew 03-29 [...] GISSELLE MACK Date: 2020-03-28 23:18 Normal [facility] CBC AUTO DIFFon 03-25-2020 BASO # 0.0 103/ul Normal 0.0-0.1 [facility] Comment on above: Performed By: #### C BC ####[facility] [address] [place], [place] [address]Qiabwp Katarina Basophils/100 WBC (Bld) 0.4 % Normal 0.2-2.0 [facility] Comment on above: Performed By: #### C BC ####[facility] [address] [place], [place] [address]Wucnks Katarina EO # 0.1 103/ul Normal 0.0-0.7 [facility] Comment on above: Performed By: #### C BC ####[facility] [address] [place], [place] [address]Mfpxrj Katarina Eosinophils/100 WBC (Bld) 1.7 % Normal 0.9-7.0 [facility] Comment on above: Performed By: #### C BC ####[facility] I[address] [place], [place] [address]Mxdnlh Katarina Erythrocyte distribution width (RBC) [Ratio] 12.2 % Normal 11.0-15.0 [facility] Comment on above: Performed By: #### C BC ####[facility] [address] Katarina Hematocrit (Bld) [Volume fraction] 41.8 % Critically low 42.0-54.0 [facility] Comment on above: Performed By: #### C BC ####[facility] Q[address] Katarina Hemoglobin (Bld) [Mass/Vol] 14.4 g/dL Normal 14.0-18.0 [facility] Comment on above: Performed By: #### C BC ####[facility] [address] [place] [address] Katarina IG # 0.01 10e3/ul Normal 0.00-0.03 [facility] Comment on above: Performed By: #### C BC ####[facility] [address] [place] [address] Katarina IG % 0.2 % Normal 0.0-0.5 [facility] Comment on above: Performed By: #### C BC ####[facility] [address] [place] [address] Katarina LYMPH # 1.5 103/ul Normal 1.2-3.8 [facility] Comment on above: Performed By: #### C BC ####[facility] [address] [place] [address] Katarina Lymphocytes/100 WBC (Bld) 31.5 % Normal 20.5-60.0 [facility] Comment on above: Performed By: #### C BC ####[facility] [address] [place] [address] Katarina MANUAL DIFF REQ NO Normal [facility] Comment on above: Performed By: #### C BC ####[facility] [address] [place] [address] Katarina MCH (RBC) [Entitic mass] 27.8 pg Normal 25.9-34.0 [facility] Comment on above: Performed By: #### C BC ####[facility] [address] [id number] Bray MCHC (RBC) [Mass/Vol] 34.4 g/dL Normal 29.9-35.2 [facility] Comment on above: Performed By: #### C BC ####[facility] [address] [place], [place] [address]Tonya Bray MCV (RBC) [Entitic vol] 80.7 fL Normal 76.3-90.1 [facility] Comment on above: Performed By: #### C BC ####[facility] [address] [place], [place] [address]Tonya Bray MONO # 0.4 103/ul Normal 0.3-0.8 [facility] Comment on above: Performed By: #### C BC ####[facility] [address] [place], [place] [address]Tonya Bray Monocytes/100 WBC (Bld) 8.0 % Normal 1.7-12.0 [facility] Comment on above: Performed By: #### C BC ####[facility] [address] [place], [place] [address]Tonya Bray NEUT # 2.8 103/ul Normal 1.4-6.5 [facility] Comment on above: Performed By: #### C BC ####[facility] [address] [place], [place] [address]Tonya Bray Neutrophils/100 WBC (Bld) 58.2 % Normal 43.0-75.0 [facility] Comment on above: Performed By: #### C BC ####[facility] [address] [place], [place] [address]outh Bray Platelet mean volume (Bld) [Entitic vol] 12.4 fL Normal 9.5-13.5 [facility] Comment on above: Performed By: #### C BC ####[facility] [address] [place], [place] [address]Gerken Katarina PLT 153 103/ul Normal 150-450 [facility] Comment on above: Performed By: #### C BC ####[facility] [address] [place], [place] [address]Rykgsw Karen RBC 5.18 106/ul Normal 3.30-5.40 [facility] Comment on above: Performed By: #### C BC ####[facility] K[address]mp[address]1 [place], [place] [address]Qtgarz Karen WBC 4.7 103/ul Normal 4.0-11.0 [facility] Comment on above: Performed By: #### C BC ####[facility] [address] [place], [place] [address] Karen CT ABD/PELV W CONon 03-25-19 CT [...] CAITLYN CAPELLAN Date: 2020-03-25 13:17 Normal [facility] PROF CHEM 8 (BAS METB)on Anion gap [Moles/Vol] 9.7 mmol/L Normal [facility] Comment on above: Performed By: #### L GUILLERMO GANT, CMP #### [facility] [address] [place] [address] Tonya Katarina Calcium [Mass/Vol] 9.3 mg/dL Normal 8.4-10.2 [facility] Comment on above: Performed By: #### L GUILLERMO GANT, CMP #### [facility] [address] [place] [address] Tonya Katarina Chloride [Moles/Vol] 107 mmol/L Normal 98-107 [facility] Comment on above: Performed By: #### L GUILLERMO GANT, CMP #### [facility] [address] [place] [address] Tonya Katarina CO2 [Moles/Vol] 28.4 mmol/L Normal 22.0-30.0 [facility] Comment on above: Performed By: #### L GUILLERMO GANT, CMP #### [facility] [address] [place] [address] Tonya Katarina Creatinine [Mass/Vol] 1.01 mg/dL Normal 0.66-1.25 [facility] Comment on above: Performed By: #### L GUILLERMO GANT, CMP #### [facility] [address] [place] [address] Tonya Katarina Glucose [Mass/Vol] 92 mg/dL Normal 74-106 [facility] Comment on above: Performed By: #### L GUILLERMO GANT, CMP #### [facility] [address] [place] [address] Tonya Katarina Potassium [Moles/Vol] 4.1 mmol/L Normal 3.4-5.0 [facility] Comment on above: Performed By: #### L GUILLERMO GANT, CMP #### [facility] [address] [place] [address] Tonya Katarina Sodium [Moles/Vol] 141 mmol/L Normal 137-145 [facility] Comment on above: Performed By: #### L GUILLERMO GANT, CMP #### [facility] [address] [place] [address] Tonya Katarina Urea nitrogen [Mass/Vol] 15.0 mg/dL Normal 6.4-19.3 [facility] Comment on above: Performed By: #### L GUILLERMO GANT, CMP #### [facility] [address] [place] [address] Tonya Katarina Urea nitrogen/Creatinine [Mass ratio] 14.9 mg/mg Normal [facility] Comment on above: Performed By: #### L GUILLERMO GANT, CMP #### [facility] [address] [place] [address] Tonya Katarina AMYLASEon 02-26-2020 Amylase [Catalytic activity/Vol] 77 U/L Normal 31-110 [facility] Comment on above: Performed By: #### L GUILLERMO GANT, CMP #### [facility] [address] [place] [address] Tonya Katarina CBC AUTO DIFFon 02-26-2020 BASO # 0.0 103/ul Normal 0.0-0.1 [facility] Comment on above: Performed By: #### L GUILLERMO GANT, CMP #### [facility] [address] [place] [address] Tonya Katarina Basophils/100 WBC (Bld) 0.2 % Normal 0.2-2.0 [facility] Comment on above: Performed By: #### L GUILLERMO GANT, CMP #### [facility] [address] [place] [address] Tonya Katarina EO # 0.1 103/ul Normal 0.0-0.7 [facility] Comment on above: Performed By: #### L GUILLERMO GANT, CMP #### [facility] [address] [place] [address] Tonya Katarina Eosinophils/100 WBC (Bld) 1.4 % Normal 0.9-7.0 [facility] Comment on above: Performed By: #### L GUILLERMO GANT, CMP #### [facility] [address] [place] [address] Tonya Katarina Erythrocyte distribution width (RBC) [Ratio] 12.2 % Normal 11.0-15.0 [facility] Comment on above: Performed By: #### L GUILLERMO GANT, CMP #### [facility] [address] [place] [address] [place]outh Bray Hematocrit (Bld) [Volume fraction] 41.9 % Critically low 42.0-54.0 [facility] Comment on above: Performed By: #### L GUILLERMO GANT, CMP #### [facility] [address] [place] [address] Tonya Katarina Hemoglobin (Bld) [Mass/Vol] 14.4 g/dL Normal 14.0-18.0 [facility] Comment on above: Performed By: #### L GUILLERMO GANT, CMP #### [facility] [address] [place] [address] Tonya Katarina IG # 0.05 10e3/ul Critically high 0.00-0.03 [facility] Comment on above: Performed By: #### L GUILLERMO GANT, CMP #### [facility] [address] [place] [address] Tonya Katarina IG % 1.0 % Critically high 0.0-0.5 [facility] Comment on above: Performed By: #### L GUILLERMO GANT, CMP #### [facility] [address] [place] [address] Tonyasouth Bray LYMPH # 1.3 103/ul Normal 1.2-3.8 [facility] Comment on above: Performed By: #### L GUILLERMO GANT, CMP #### [facility] [address] [place] [address] Tonya Bray Lymphocytes/100 WBC (Bld) 27.0 % Normal 20.5-60.0 [facility] Comment on above: Performed By: #### L GUILLERMO GANT, CMP #### [facility] [address] [place] [address] Tonya Bray MANUAL DIFF REQ NO Normal [facility] Comment on above: Performed By: #### L GUILLERMO GANT, CMP #### [facility] [address] [place] [address] Tonya Katarina MCH (RBC) [Entitic mass] 27.6 pg Normal 25.9-34.0 [facility] Comment on above: Performed By: #### L GUILLERMO GANT, CMP #### [facility] [address] [place] [address] Tonya Bray MCHC (RBC) [Mass/Vol] 34.4 g/dL Normal 29.9-35.2 [facility] Comment on above: Performed By: #### L GUILLERMO GANT, CMP #### [facility] [address] [place] [address] Tonyasouth Bray MCV (RBC) [Entitic vol] 80.3 fL Normal 76.3-90.1 [facility] Comment on above: Performed By: #### L GUILLERMO GANT, CMP #### [facility] [address] [place] [address] Tonya Bray MONO # 0.3 103/ul Normal 0.3-0.8 [facility] Comment on above: Performed By: #### L GUILLERMO GANT, CMP #### [facility] [address] [place] [address] Tonay Katarina Monocytes/100 WBC (Bld) 6.5 % Normal 1.7-12.0 [facility] Comment on above: Performed By: #### L GUILLERMO GANT, CMP #### [facility] [address] [place] [address] Tonya Bray NEUT # 3.2 103/ul Normal 1.4-6.5 [facility] Comment on above: Performed By: #### L GUILLERMO GANT, CMP #### [facility] [address] [place] [address] Tonya Katarina Neutrophils/100 WBC (Bld) 63.9 % Normal 43.0-75.0 [facility] Comment on above: Performed By: #### L GUILLERMO GANT, CMP #### [facility] [address] [place] [address] Tonyasouth Bray Platelet mean volume (Bld) [Entitic vol] 12.1 fL Normal 9.5-13.5 [facility] Comment on above: Performed By: #### L GUILLERMO GANT, CMP #### [facility] [address] [address] Tonyasouth Tiradoen PLT 168 103/ul Normal 150-450 [facility] Comment on above: Performed By: #### L GUILLERMO GANT, CMP #### [facility] [address] [place], [place] [id number] Tonya Katarina RBC 5.22 106/ul Normal 3.30-5.40 [facility] Comment on above: Performed By: #### L GUILLERMO GANT, CMP #### [facility] [address] [place] [address] Tonya Katarina WBC 4.9 103/ul Normal 4.0-11.0 [facility] Comment on above: Performed By: #### L GUILLERMO GANT, CMP #### [facility] [address] [place] [address] Tonya Bray LIPASEon 02-26-2020 Lipase [Catalytic activity/Vol] 78.0 U/L Normal 23.0-300.0 [facility] Comment on above: Performed By: #### L GUILLERMO GANT, CMP #### [facility] [address] [place] [address] Tonya Bray PROF 14(COMP METB)on 020 AGE Normal [facility] Comment on above: Performed By: #### L GUILLERMO GANT, CMP #### [facility] [address] [place] [address] Tonyasouth Bray Albumin [Mass/Vol] 4.1 g/dL Normal 3.5-5.0 [facility] Comment on above: Performed By: #### L GUILLERMO GANT, CMP #### [facility] [address] [place] [address] Tonyasouth Bray Albumin/Globulin [Mass ratio] 1.6 {ratio} Normal [facility] Comment on above: Performed By: #### L GUILLERMO GANT, CMP #### [facility] [address] [place] [address] Tonya Katarina ALP [Catalytic activity/Vol] 196 U/L Normal 65-260 [facility] Comment on above: Performed By: #### L GUILLERMO GANT, CMP #### [facility] [address] [address] Tonya Katarina ALT [Catalytic activity/Vol] 17 U/L Critically low 21-72 [facility] Comment on above: Performed By: #### L GUILLERMO GANT, CMP #### [facility] [address] [place] [address] Tonya Katarina Anion gap [Moles/Vol] 12.4 mmol/L Normal [facility] Comment on above: Performed By: #### L GUILLERMO GANT, CMP #### [facility] [address] [place] [address] Tonya Katarina AST [Catalytic activity/Vol] 11 U/L Critically low 17-59 [facility] Comment on above: Performed By: #### L GUILLERMO GANT, CMP #### [facility] [address] [place] [address] Tonya Katarina Bilirubin [Mass/Vol] 0.6 mg/dL Normal 0.2-1.3 [facility] Comment on above: Performed By: #### L GUILLERMO GANT, CMP #### [facility] [address] [place] [address] Tonya Katarina Calcium [Mass/Vol] 9.4 mg/dL Normal 8.4-10.2 [facility] Comment on above: Performed By: #### L GUILLERMO GANT, CMP #### [facility] [address] [place] [address] Tonya Katarina Chloride [Moles/Vol] 107 mmol/L Normal 98-107 [facility] Comment on above: Performed By: #### L GUILLERMO GANT, CMP #### [facility] [address] [place] [address] Tonya Katarina CO2 [Moles/Vol] 27.7 mmol/L Normal 22.0-30.0 [facility] Comment on above: Performed By: #### L GUILLERMO GANT, CMP #### [facility] [address] [place] [address] Tonya Katarina Creatinine [Mass/Vol] 1.02 mg/dL Normal 0.66-1.25 [facility] Comment on above: Performed By: #### L GUILLERMO GANT, CMP #### [facility] [address] [address] Tonya Katarina EGFR-AF [place] Normal >=60 [facility] Comment on above: Performed By: #### L GUILLERMO GANT, CMP #### [facility] [address] [address] Tonya Katarina EGFR-NON AF [place] Normal >=60 [facility] Comment on above: Performed By: #### L GUILLERMO GANT, CMP #### [facility] [address] [address] Tonya Katarina Globulin (S) [Mass/Vol] 2.5 g/dL Normal [facility] Comment on above: Performed By: #### L GUILLERMO GANT, CMP #### [facility] [address] [address] Tonya Katarina Glucose [Mass/Vol] 92 mg/dL Normal 74-106 [facility] Comment on above: Performed By: #### L GUILLERMO GANT, CMP #### [facility] [address] [address] Tonya Katarina Potassium [Moles/Vol] 4.1 mmol/L Normal 3.4-5.0 [facility] Comment on above: Performed By: #### L GUILLERMO GANT, CMP #### [facility] [address] [address] Tonya Katarina Protein [Mass/Vol] 6.6 g/dL Normal 6.1-8.2 [facility] Comment on above: Performed By: #### L GUILLERMO GANT, CMP #### [facility] [address] [address] Tonya Katarina Sodium [Moles/Vol] 143 mmol/L Normal 137-145 [facility] Comment on above: Performed By: #### L GUILLERMO GANT, CMP #### [facility] [address] [address] Tonya Katarina Urea nitrogen [Mass/Vol] 16.0 mg/dL Normal 6.4-19.3 [facility] Comment on above: Performed By: #### L GUILLERMO GANT, CMP #### [facility] [address] [place], [place] [address] Tonya Katarina Urea nitrogen/Creatinine [Mass ratio] 15.7 mg/mg Normal [facility] Comment on above: Performed By: #### L GUILLERMO GANT, CMP #### [facility] [address] [place], [place] [address] Tonya Bray XR CHEST 2 Von 02-10-2020 [...] by: JESSE FRANKLIN Date: 2020-02-10 07:22 Normal [facility] XR RIBS LT NO CH 2Von 2019 [...] by: JESSE FRANKLIN Date: 2020-02-10 07:24 Normal [facility] XR SCOLIOSIS SERIES 2 TO 3 V [...] JESSE FRANKLIN Date: 2020-02-10 07:26 Normal [facility] FLUORO FOR SURGICAL PROCEDUR ESon 12-25-2018 FLUORO FOR SURGICAL PROCEDURES Radiology exam is complete. No Radiologist dictation. Please follow up with ordering provider. Final result Normal [facility] Radiology exam is complete. No Radiologist dictation. Please follow up with ordering provider. [place], [place] OPERATIVE REPORTon 9 OPERATIVE REPORT [address] [id number] OPERATIVE REPORT PATIENT NAME: ALEXANDR BRANCH : 2005 MED REC NO: [id number] ROOM: ACCOUNT NO: [id number] ADMIT DATE: 12/25/2018 PROVIDER: Fabiana Wolf DATE [...] of the case. FABIANA WOLF RK/V_SSPAR_T Doc#: [id number] CC: MD Nitish Valdovinos MD [facility] Surgical Pathologyon 12-25-2 019 Surgical Pathology (NOTE) [id number] [facility] CONSULTING PATHOLOGISTS [facility]AT[facility] PATH[facility] [address] [place] [address]. [place], [place] [address] SURGICAL PATHOLOGY CONSULTATION Patient Name: ALEXANDR BRANCH [facility] Rec: [id number] Path Number: [id number] Collected: 12/25/2018 Received: 12/25/2018 Reported: 12/31/2018 14:11 [...] testing laboratory should be ordered. tm Normal [facility] Comment on above: Performed By: #### P PPVS #### [address] [id number] Flotation Tender: Javier Lee MD US CHEST INCLUDING MEDIASTIN [...] Irving Knox MD 12/08/18 Final result Normal [facility] 5-6 mm foreign body in the right upper chest. [facility] [place] EXAMINATION: ULTRASO UND OF THE CHEST 12/08/2018 [...] collection is seen. No significant color flow. [facility] [place], pn Incoming R adiant Results From [employer] - 12/08/2018 12:37 PM EDT EXAMINATION: ULTRASOUND [...] foreign body in the right upper chest. [facility] [place] C Woundon 12-20-2017 Wound Culture Microbiology PROCEDURE: [...] Locations R1: This test was performed at: [facility], [address] [place] [address], [id number] , [facility] Comment on above: Performed By: #### 2 [id number] #### [facility] [address] [place] [id number] Coding Summary.on 12-19-2017 Coding Summary. CODING DATE: 018 FINAL [facility] STATUS: Home (Routine DC) PAYOR: Medicaid EAPG [...] Nelly Campbell Date Saved: 12/19/2017 11:52 am [facility] Vital Signs Date Time Vital Sign Value Performing Clinician Facility 07-25-2021 16:00-0400 Body height 177.8 cm Jesse Mackjody Other [facility] Other 07-25-2021 16:00-0400 Body mass index (BMI) [Ratio] 21.66 kg/m2 Jesse Greenberg Other [facility] Other 07-25-2021 16:00-0400 Body weight 68.49 kg Jesse Greenberg Other [facility] Other 07-25-2021 16:00-0400 Diastolic blood pressure 70 mm[Hg] Jesse Greenberg Other [facility] Other 07-25-2021 16:00-0400 Systolic blood pressure 122 mm[Hg] Jesse Greenberg Other [facility] Other 04-23-2021 16:00-0500 Body height 177.8 cm Jesse Greenberg Other [facility] Other 04-23-2021 16:00-0500 Body mass index (BMI) [Ratio] 19.51 kg/m2 Jesse Greenberg Other [facility] Other 04-23-2021 16:00-0500 Body weight 61.69 kg Jesse Greenberg Other [facility] Other 04-23-2021 16:00-0500 Diastolic blood pressure 69 mm[Hg] Jesse Greenberg Other [facility] Other 04-23-2021 16:00-0500 Systolic blood pressure 112 mm[Hg] Jesse Greenberg Other [facility] Other 09-06-2020 21:38-0400 Diastolic blood pressure 56 mm[Hg] Nitish Hoy Other Phone: [facility] 09-06-2020 21:38-0400 Heart rate 65 /min Nitish Hoy Other Phone: [facility] 09-06-2020 21:38-0400 Respiratory rate 20 /min Nitish Hoy Other Phone: [facility] 09-06-2020 21:38-0400 SaO2% (BldA) [Mass fraction] 99 % Intish Hoy Other Phone: [facility] 09-06-2020 21:38-0400 Systolic blood pressure 119 mm[Hg] Nitish Hoy Other Phone: [facility] 09-06-2020 18:09-0400 Body height 175 cm Nitish Hoy Other Phone: [facility] 09-06-2020 18:09-0400 Body temperature 98.06 [degF] Nitish Hoy Other Phone: [facility] 08-15-2020 13:26-0400 Body height 174.2 cm Nitish M Hoy Work Phone: [facility] Work Phone: 08-15-2020 13:26-0400 Body mass index (BMI) [Ratio] 20.13 kg/m2 Nitish M Hoy Work Phone: [facility] Work Phone: 08-15-2020 13:26-0400 Body surface area Derived from formula 1.74 m2 Nitish M Hoy Work Phone: [facility] Work Phone: 08-15-2020 13:26-0400 Body temperature 98 [degF] Nitish M Hoy Work Phone: [facility] Work Phone: 08-15-2020 13:26-0400 Body weight 61.1 kg Nitish M Hoy Work Phone: [facility] Work Phone: 08-15-2020 13:26-0400 Diastolic blood pressure 74 mm[Hg] Nitish M Hoy Work Phone: [facility] Work Phone: 08-15-2020 13:26-0400 Heart rate 67 /min Nitish M Hoy Work Phone: KJ[facility]Vddipqlrse-Gkuxlh [place] [facility] Work Phone: 08-15-2020 13:26-0400 Systolic blood pressure 129 mm[Hg] Nitish Cedeno Work Phone: HL-Crxjsxpujk-Sygojy [place] [facility] Work Phone: 08-15-2020 13:26-0400 46 1 Nitish M Hoy Work Phone: BB-Tgvaedpsdv-Udyqcx [place] [facility] Work Phone: Comment on above: 2-20_SPerc 08-15-2020 13:26-0400 41 1 Nitish M Hoy Work Phone: IJ-Phyikdinwj-Lyrgvu [place] [facility] Work Phone: Comment on above: 2-_WPerc 08-15-2020 13:26-0400 37 1 Nitish Cedeno Work Phone: ZI-Hhzvmtvvop-Wfqwwl [place] [facility] Work Phone: Comment on above: BMIPerc 03-31-2020 15:01-0500 BMI (Body Mass Index) 21.23 kg/m2 Nitish Hoy UL-Ijufyrcclr-Idznul [place] [facility] Work Phone: 03-31-2020 15:01-0500 Body Temperature 97.9 [degF] Nitish Pisanoy CK-Ooiocpgnxa-N enter [place] [facility] Work Phone: 03-31-2020 15:01-0500 Body weight 65.77 kg Nitish Pisanoy MG-Efxbkyspcv-Ge er [place] [facility] Work Phone: 03-31-2020 15:01-0500 BP Diastolic 72 mm[Hg] Nitish Hoy HJ-Pkmovpbgdo-Li nter [place] [facility] Work Phone: 03-31-2020 15:01-0500 BP Systolic 121 mm[Hg] Nitish Hoy SA-Yygjhvmmin-Ei nter [place] [facility] Work Phone: 03-31-2020 15:01-0500 BSA (Body Surface Area) 1.81 m2 Nitish Hoy NF-Pmoklpfxvr-Vsbahe [place] [facility] Work Phone: 03-31-2020 15:01-0500 Height 176 cm Nitish Cedeno ZL-Jodkpadtta-Su nter [place] [facility] Work Phone: 03-31-2020 15:01-0500 Pulse (Heart Rate) 84 /min Nitish Cedeno [facility] [facility] Work Phone: 03-31-2020 15:01-0500 59 1 Nitish Cedeno EF-Xysmsbnqks-Ox nter [place] [facility] Work Phone: Comment on above: 2-20 Stature Percentile 03-31-2020 15:01-0500 62 1 Nitish Pisanoy SQ-Ctlyzrybez-Id nter [place] [facility] Work Phone: Comment on above: 2-20 Weight Percentile 03-31-2020 15:01-0500 56 1 Nitish Cedeno UW-Zacmijlndo-Yr nter [place] [facility] Work Phone: Comment on above: BMI Percentile 12-25-2018 13:15-0400 Body Temperature 96.8 [degF] [place] 12-25-2018 13:15-0400 BP Diastolic 66 mm[Hg] [place], [place] 12-25-2018 13:15-0400 BP Systolic 115 mm[Hg] [place] 12-25-2018 13:15-0400 Pulse (Heart Rate) 81 /min [place], [place] 12-25-2018 13:15-0400 Pulse Oximetry 97 % [place] 12-25-2018 13:15-0400 Respiratory Rate 18 /min [facility] [place] 12-25-2018 09:20-0400 BMI (Body Mass Index) 21.74 kg/m2 [place] 12-25-2018 09:20-0400 Body weight 64.86 kg [place], [place] 12-25-2018 09:20-0400 Height 172.7 cm [place] Encounters Encounter Date Encounter Type Care Provider Facility Start: 07-25-2021 End: 07-25-2021 ambulatory Jesse Greenberg Other [facility] Other Start: 07-25-2021 Office outpatient visit 15 minutes Jesse Frederickjody [facility] Start: 05-16-2021 End: 05-16-2021 ambulatory Jesse Greenberg Other [facility] Other Start: 05-16-2021 Telephone encounter Jesse Greenberg [facility] Start: 05-15-2021 End: 05-15-2021 ambulatory Jesse Greenberg Other [facility] Other Start: 05-15-2021 Telephone encounter Jesse Greenberg [facility] Start: 04-23-2021 End: 04-23-2021 ambulatory Jesse Greenberg Other [facility] Other Start: 04-23-2021 Office outpatient visit 10 minutes Jesse Yari [facility] Start: 10-05-2020 Chart Update Nitish Cedeno Work Phone: KI-Nsomdqswjh-Nvvvgr Admin [facility] 737 Work Phone: Start: 09-28-2020 Patient encounter procedure Nitish Cedeno Work Phone: TA-Zusnrxvdqy-Drgwue [place] [facility] Work Phone: Start: 09-18-2020 AUDIT Nitish Cedeno Work Phone: LS-Cfnynbnuqx-Aafazs [place] [facility] Work Phone: Start: 09-06-2020 End: 09-06-2020 Emergency department patient visit Katarina Almonte [facility] Start: 08-15-2020 Office outpatient visit 25 minutes Nitish Cedeno Work Phone: [facility] Work Phone: Start: 08-15-2020 Patient encounter procedure Nitish Cedeno Work Phone: CO-Dxmlrwslrc-Geeznr [place] [facility] Work Phone: Start: 05-08-2020 End: 05-09-2020 ambulatory SHEREE RUTHANNBRYNN Facility:[facility] Start: 04-07-2020 End: 04-08-[address] NITISH CEDENO Facility:[facility] Start: 03-28-2020 End: 03-29-[address] NITISH CEDENO Facility:[facility] Start: 03-26-2020 End: 03-26-2020 ambulatory [...] 12-25-2018 Patient encounter procedure TEETEE DE JESUS [facility] Start: 12-25-2018 End: 12-25-2018 Subsequent hospital visit by physician Teetee De Jesus Work Phone: [facility] Start: 12-08-2018 End: 12-11-2018 Patient encounter procedure ZAY SANTO [facility] Start: 12-08-2018 End: 12-10-2018 Subsequent hospital visit by physician Saturnino Myles 1 [facility]ound Comment on above: Foreign body of [...] Nela Tamez, Status: Pen, Time: 10:00 AM ZP-Wxqmdjlvoi-Tisnsw Admin [facility] 737 Work Phone: Start: 09-28-2020 NPV, Provider: Nela Tamez, Status: Pen, Time: 12:30 PM NPV, Provider: Nela Tamez, Status: Pen, [facility]: [facility]:30 [facility] Start: 09-28-2020 Patient encounter procedure [facility] [place] Start: 09-18-2020 Patient encounter procedure [facility] Start: 09-06-2020 End: 09-07-2021 [facility] Comment on above: Use for procedures g [...] min. Start: 12-20-2018 HIV screen HIV screen [place], [place] Start: 12-20-2018 HPV vaccine (1 - Mal e 3-dose series) HPV vaccine (1 - Male 3-dose series) [place], [place] Start: 11-08-2018 Influenza vaccination Flu vaccine (# 1) [place] Start: 12-20-2016 Varicella Vaccine (1 of 2 - 13+ 2-dose series) Varicella Vaccine (1 of 2 - 13+ 2-dose series) [place] Start: 12-20-2014 HPV vaccine (1 - Mal e 2-dose series) HPV vaccine (1 - Male 2-dose series) [place] Start: 12-20-2014 Meningococcal (ACWY) Vaccine (1 - 2-dose series) Meningococcal (ACWY) Vaccine (1 - 2-dose series) [place] Start: 12-20-2010 DTaP/Tdap/Td vaccine (1 - Tdap) DTaP/Tdap/Td vaccine (1 - Tdap) [place] Start: 12-20-2004 Hepatitis A vaccine (1 of 2 - 2-dose series) Hepatitis A vaccine (1 of 2 - 2-dose series) [place] Start: 12-20-2004 Measles,Mumps,Rubell a (MMR) vaccine (1 of 2 - Standard series) Measles,Mumps,Rubella (MMR) vaccine (1 of 2 - Standard series) [place] Start: 02-20-2004 Polio vaccine 0-18 ( 1 of 3 - 4-dose series) Polio vaccine 0-18 (1 of 3 - 4-dose series) [place], [place] Start: 2003 Hepatitis B Vaccine (1 of 3 - 3-dose primary series) Hepatitis B Vaccine (1 of 3 - 3-dose primary series) [place] Initiate Oxygen Ther apy Protocol Initiate Oxygen Therapy Protocol Respiratory Care Routine Daily until discontinued starting 12/25/2018 [facility] [place] Comment on above: Daily until disconti nued starting 12/25/2018 Phase I & II - meter ed glucose Phase I & II - metered glucose Point of Care Testing Routine As Needed until discontinued starting 12/25/2018 [facility] [place] Comment on above: As Needed until disc ontinued starting 12/25/2018 Surgical Pathology Surgical Path ology Lab Routine ONE TIME for 1 Occurrences starting 12/25/2018 [facility] [place] Comment on above: ONE TIME for 1 Occur rences starting 12/25/2018 Immunizations Immunization Date Immunization Notes Care Provider Fa quentin 08-14-2020 Pfizer-BioNTech COVI D-19 Vacc 30 MCG/0.3ML Intramuscular Suspension Nitish Cedeno Work Phone: BF-Zsjcpdgyon-Geyk [facility] [place] [facility] Work Phone: 07-24-2020 Pfizer-BioNTech COVI D-19 Vacc 30 MCG/0.3ML Intramuscular Suspension Nitish M Deneen Work Phone: TK-Uzxkhpfsre-Ddbx er [place] [facility] Work Phone: 07-02-2017 hepatitis A vaccine, pediatric/adolescent dosage, 2 dose schedule Nitish Cedeno Work Phone: WX-Erywootjgx-Gdmv er [place] [facility] Work Phone: 07-02-2017 Human Papillomavirus 9-valent vaccine Nitish Chu Deneen Work Phone: JV-Xqlvloewgv-Qbxe er [place] [facility] Work Phone: 12-26-2016 hepatitis A vaccine, pediatric/adolescent dosage, 2 dose schedule Nitish Chu Deneen Work Phone: WA-Gyteygpxjf-Tret er [place] [facility] Work Phone: 12-26-2016 Human Papillomavirus 9-valent vaccine Nitish Chu Deneen Work Phone: SN-Vkazkqmlnq-Vxvy er [place] [facility] Work Phone: 11-21-2016 meningococcal oligosaccharide (groups A, C, Y and W-135) diphtheria toxoid conjugate vaccine (MCV4O) Nitish Cedeno Work Phone: GG-Zzmlkfgobz-Mjgs [facility] [place] [facility] Work Phone: 11-21-2016 tetanus toxoid, redu kervin diphtheria toxoid, and acellular pertussis vaccine, adsorbed Nitish Cedeno Work Phone: TZ-Bvoitgxphb-Iprb er [place] [facility] Work Phone: 02-15-2010 varicella virus vaccine Ayan Cedeno Work Phone: [facility] [place] [facility] Work Phone: 11-16-2009 Diphtheria, tetanus toxoids and acellular pertussis vaccine, and poliovirus vaccine, inactivated Nitish Cedeno Work Phone: [facility] [place] [facility] Work Phone: 11-16-2009 measles, mumps, rube lla, and varicella virus vaccine Nitish Cedeno Work Phone: [facility] [place] [facility] Work Phone: 07-23-2007 diphtheria, tetanus toxoids and acellular pertussis vaccine Nitish Cedeno Work Phone: [facility] [place] [facility] Work Phone: 07-23-2007 pneumococcal conjuga te vaccine, 7 valent Nitish Cedeno Work Phone: [facility] [place] [facility] Work Phone: 05-17-2005 DTaP-hepatitis B and poliovirus vaccine Nitish Cdeeno Work Phone: [facility] [place] [facility] Work Phone: 05-17-2005 haemophilus influenz ae type b vaccine, PRP-T conjugate Nitish Cedeno Work Phone: PZ-Rwefmmqgfn-Luqx [facility] [place] [facility] Work Phone: 05-17-2005 measles, mumps and rubella virus vaccine Nitish Cedeno Work Phone: GE-Nynuewersa-Aesv er [place] [facility] Work Phone: 05-17-2005 pneumococcal conjuga te vaccine, 7 valent Nitish M Hoy Work Phone: IM-Ycvmbipwvq-Cfmz [facility] [place] [facility] Work Phone: 05-22-2004 DTaP-hepatitis B and poliovirus vaccine Nitish Sage Hoy Work Phone: OR-Hftywlbrif-Ptun er [place] [facility] Work Phone: 05-22-2004 haemophilus influenz ae type b vaccine, PRP-T conjugate Nitish Sage Hoy Work Phone: RW-Lhhobxecez-Jhfh er [place] [facility] Work Phone: 05-22-2004 pneumococcal conjuga te vaccine, 7 valent Nitish M Hoy Work Phone: LX-Ztpjyazpfs-Azwb [facility] [place] [facility] Work Phone: 03-20-2004 DTaP-hepatitis B and poliovirus vaccine Nitish Cedeno Work Phone: ET-Rjwiccfzqf-Pmex [facility] [place] [facility] Work Phone: 03-20-2004 haemophilus influenz ae type b vaccine, PRP-T conjugate Nitish Cedeno Work Phone: RW-Hwevosmxyn-Rdea [facility] [place] [facility] Work Phone: 03-20-2004 pneumococcal conjuga te vaccine, 7 valent Nitish M Hoy Work Phone: IY-Jgbqullfej-Awxe [facility] [place] [facility] Work Phone: 2003 hepatitis B vaccine, pediatric or pediatric/adolescent dosage Nitish Cedeno Work Phone: AQ-Oxuojejhnu-Orki [facility] [place] [facility] Work Phone: Payers Date Payer Category Payer Unknown [facility] xxxxxxxxxxxx 2017-Present [phone] [address] [place] [address] [id number] .[id number] 1959 Unknown [id number] 1956 Unknown [id number] 2.16.840.1.080366.3.579.2.175 1956 Unknown [id number] 2.16.840.1.448728.3.579.2.175 1956 Unknown [id number] 2.16.840.1.390103.3.579.2.593 1956 Unknown [id number] 2.16.840.1.494036.3.579.2.593 1956 Unknown [id number] 2.16.840.1.245452.3.579.2.593 1956 Unknown [id number] 2.16.840.1.966551.3.579.2.593 1956 Unknown [id number] 2.16.840.1.224776.3.579.2.593 1956 Unknown [id number] 2.16.840.1.891784.3.579.2.593 1956 Unknown [id number] 2.16.840.1.787036.3.579.2.593 1956 Unknown [id number] 2.16.840.1.571001.3.579.2.593 1956 Unknown [id number] 2.16.840.1.141058.3.579.2.593 Unknown Social History Date Type Detail Facility Start: 12-08-2018 End: 12-25-2018 Tobacco smoking status NHIS Never smoker [place], [place] Start: 12-25-2018 Alcohol intake Never [place], [place] Start: 12-24-2018 History SDOH Alcohol Frequency 1 [place], [place] Sex Assigned At Not on file [place] Secondhand smoke exposure Secondhand smoke exposure [place] Work Phone: Tobacco smoking consumption unknown [facility] Functional Status Date Assessment Result Facility NEGATED: [...] without hemorrhage, unspecified chronicity (ICD-10 - K29.30) [employer] Other 02-14-2022 Evaluation note* Encounter Date Diagnosis Assessment Notes Treatment Notes Treatment Clinical Notes Apr, Irritable bowel syndrome with diarrhea (ICD-10 - K58.0) CONTINUE HYOSCYAMINE WITHOUT CHANGE Apr, 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 LEONARD [employer] Other 07-26-2021 NoteHistory of Present Illness: History [...] Completion Last Updated: 02-Oct-2020 11:10 by Sheree Leonard)[facility]06-08-2021 History of Present illness [id number] y m here for follow up of [...] no Covid and no association with the vaccine.[facility] Work Phone: 1(964) 248-554706-08-2021 History of Present illness [id number] y m here for follow up of [...] no association of the pain with the vaccine.[facility] [employer] Work Phone: 1(711) 187-275706-08-2021 History of Present illness [id number] y m here for follow up of [...] no association of the pain with the vaccine.[place] [employer] Work Phone: 1(247) 382-502002-22-2021 NoteHistory of Present Illness: History Present Illness: [...] Completion Last Updated: 01-May-2020 11:34 by Sheree Leonard)[facility]12-30-2020 NotePROCEDURE: XR GI UPPER AIR KUB DUAL [...] Electronically authenticated by: JESSE FRANKLIN Date: 2020-03-08 14:33[facility]12-30-2020 NotePROCEDURE: XR GI UPPER AIR KUB DUAL [...] Electronically authenticated by: JESSE FRANKLIN Date: 2020-03-08 14:33[facility] noteNo InformationN[facility]Jeff[facility] [employer] Other Hisjbae general Narrative - Reported* Type Description Date Medical History GERD Medical History IBS [employer] Other Hisrkyy general Narrative - Reported* Type Description Date Medical History GERD Medical History IBS Surgical History Neck Surgery [facility] [employer] Other History of Present illness Narrative* PATIENT WAS A NO SHOW FOR VISIT; NOTE PREPARED IN PREPARATION OF ANTICIPATED VISIT * ALEXANDR BRANCH is a 14 year-old boy who was referred to the [facility] by Dr. 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 ? If you have any questions about your diet or nutrition, call the hospital and ask for the dietitian. There are no dietary restrictions due to your hospitalization. Any pre- hospitalization dietary restrictions remain in place. * Additional Instructions* Elida Hawkins RN - 12/25/2018 [facility] Pediatric Surgery [facility] [address] [place], [place] P: [phone] ? [phone] ? AMBULATORY SURGERY POSTOPERATIVE INSTRUCTIONS ACTIVITY: Your [...] contact the [facility] office at [phone], or toll-free, [phone], to schedule an appointment. You may also [...] INCLUDING MEDIASTINUM HC ULTRASOUND CHEST Zay Santo, SMALL BRAKE FORM OPERATOR - LEGAL INVESTIGATOR [address] [place] [address] Assessments Diagnosis Foreign body of skin of [...] section and content) DATE CREATED AUTHOR 12/13/2018 [place] [facility] DATE CREATED AUTHOR AUTHOR'S ORGANIZ ATION 02/01/2019 [facility] [place] [facility] DATE CREATED AUTHOR AUTHOR'S ORGANIZ ATION 08/12/2020 [facility] DATE CREATED AUTHOR AUTHOR'S ORGANIZ ATION 09/29/2020 [employer] DATE CREATED AUTHOR AUTHOR'S ORGANIZ ATION 10/06/2020 [facility] Reason for Visit (unrecogniz ed section [...] initial encounter FOREIGN BODY ANTERIOR CHEST Procedures VT OFFICE/OUTPT VISIT,PROCEDURE ONLY VT REMOVE FOREIGN BODY COMPLIC EXCISION FOREIGN BODY ANTERIOR CHEST NEAR RIGHT CLAVICLE, ULTRASOUND MACHINE Teetee De Jesus MD [address] [place] [address] [facility] Status Reason Specialty Diagnoses / Procedures Referre d By Contact Referred To Contact [facility] Diagnoses Foreign body of skin of chest, initial encounter Procedures US CHEST INCLUDING MEDIASTINUM HC ULTRASOUND CHEST Zay Santo, SMALL BRAKE FORM OPERATOR - LEGAL INVESTIGATOR [address] [place] [address] <item> Privacy Markings (unrecogniz ed section and [...] BE BASED ON THE PRIMARY CLINICAL RECORDS. [facility] [facility]. provides no warranty or guarantee of the accuracy or completeness of information in this document.
== END 2024-04-26 14:23 | disposition home or self-care (01) ==
LOC: EC 14:23
PROVIDERS: PCP Family Medicine; Visit Provider Orthopaedic Surgery
DX: M79.641 Pain in right hand (principal); S63.06 Subluxation and dislocation of metacarpal (bone), proximal end
CPT/HCPCS: 73130

== ENCOUNTER 2024-04-29 14:30 | Outpatient (OUT) | payer OTHER, SELFPAY | END 2024-04-29 14:31 | disposition home or self-care (01) | LOC: CT 14:30 | PROVIDERS: PCP Family Medicine; Visit Provider Orthopaedic Surgery | DX: S63.044A Dislocation of carpometacarpal joint of right thumb, initial encounter (principal); S62.342A Nondisplaced fracture of base of third metacarpal bone, right hand, initial encounter for closed fracture; S62.344A Nondisplaced fracture of base of fourth metacarpal bone, right hand, initial encounter for closed fracture; S62.314A Displaced fracture of base of fourth metacarpal bone, right hand, initial encounter for closed fracture | CPT/HCPCS: 73200 ==